=== PATIENT | female | born 1935 | race Caucasian/White ===

== ENCOUNTER 2016-06-04 02:43 | Observation (INO) ==
--- NOTE | 2016-06-04 02:54 | Emergency Department Note ---
Disposition Clinical Impression: Chest pain Qualifiers: Chest pain type: unspecified Qualified Code(s): R07.9 - Chest pain, unspecified Dyspnea Qualifiers: Dyspnea type: orthopnea Qualified Code(s): R06.01 - Orthopnea Disposition: Admitted As Inpatient Condition: Fair Referrals: Unassigned,Provider [Non-Partnered Physician] - Forms: ED Satisfaction Letter Time of Disposition: 04:35 Chest Pain HPI - General Chief Complaint: ED Chest Pain Stated Complaint: chest pain Time Seen by Provider: 06/04/16 02:47 Source: patient Mode of arrival: EMS Limitations: no limitations Vital Signs Reviewed: Yes Nursing Notes Reviewed: Yes - History of Present Illness HPI Narrative: Patient is a 80-year-old female who presents to [facility] ED with a chief complaint of shortness of breath and chest pain. States her shortness of breath has been present over the last week. She felt it come on especially when she lays down flat. Decided to go into a rocking chair and sleep but then felt sudden sharp right sided chest pain that radiated into her right arm. Denies any nausea, vomiting, fever or chills. No abdominal pain. No problems with urination or bowel movements. Past medical history significant for CHF on Lasix 40 mg twice a day, thyroid disease, hypertension, hyperlipidemia, lower extremity edema, epilepsy. Patient does not feel any chest pain at this time. 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 Denies: nausea, vomiting, diaphoresis, fever, cough Treatments prior to arrival chest pain: none - Related Data Previous Rx's Medication Instructions Recorded Azithromycin [Zithromax] 250 mg PO DAILY #6 tablet 07/07/15 Allergies Allergy/AdvReac Type Severity Reaction Status Date / Time codeine Allergy Anaphylaxis Verified 07/07/15 16:34 morphine Allergy Anaphylaxis Verified 07/07/15 16:34 IV contrast Allergy Anaphylaxis Uncoded 07/07/15 16:34 All systems ED: reviewed and negative except as stated. Chest Pain PMH - Past Medical History Medical history: Reports: CHF, hypertension, other Psychiatric history: Reports: no psych history - Social History Smoking Status: Never smoker Alcohol use: Reports: none Drug use: Reports: none Physical Exam - General Limitations: no limitations General appearance: alert, in no apparent distress - Head Head exam: atraumatic, normocephalic, normal inspection - Eye Eye exam: Present: normal appearance, PERRL, EOMI - ENT ENT exam: normal exam, normal oropharynx, mucous membranes moist - Neck Neck exam: Present: normal inspection, full ROM, trachea midline - Chest Chest inspection: Present: normal inspection, symmetric chest wall rise, tenderness (Right-sided reproducible pain worse with palpation) - Respiratory Respiratory exam: Present: normal lung sounds bilaterally - Cardiovascular Cardiovascular exam: Present: regular rate, normal rhythm, normal heart sounds - Abdominal Exam Abdominal exam: Present: soft, Non-Tender. Absent: tenderness, distention, guarding, rebound, rigidity - Extremities Exam Extremities exam: Present: full ROM, pedal edema. Absent: tenderness - Back Exam Back exam: Present: normal inspection, full ROM. Absent: tenderness - Neurological Exam Neurological exam: Present: alert, oriented X3 - Psychiatric Psychiatric exam: Present: normal affect, normal mood - Skin Skin exam: Present: warm, dry, intact, normal color Course Course Narrative: Patient seen and examined. Chest pain that is currently resolved. Also complaining of dyspnea over the last week. History of CHF. Cardiopulmonary workup initiated. She follows with division order technician Dr. Mendosa. Recent echocardiogram in 2015 showed an EF of 65%. - Reevaluation(s) Reevaluation #1: Lab work shows a troponin of 0.00, BNP 79. Chest x-ray unremarkable. EKG unchanged from prior in 2015. Since patient has not had a recent cardiac workup , we will go ahead and admit for chest pain, rule out ACS. I spoke with hospitalist Dr. Hightower who has accepted patient for admission. Time: 04:32 Vital Signs Temperature 0 F L 06/04/16 02:48 Pulse Rate 68 06/04/16 02:48 Respiratory Rate 16 06/04/16 02:48 Blood Pressure 176/88 06/04/16 02:48 O2 Sat by Pulse Oximetry 99 06/04/16 02:48 Temperature 0 F L 06/04/16 02:48 Pulse Rate 59 06/04/16 03:30 Respiratory Rate 16 06/04/16 03:30 Blood Pressure 176/88 06/04/16 02:48 O2 Sat by Pulse Oximetry 98 06/04/16 03:30 Oxygen Delivery Oxygen Delivery Nasal Cannula Chest Pain - Medical Records Medical records reviewed: Yes I reviewed the patient's medical records. - Lab Data Lab results reviewed: Yes I reviewed the patient's lab results. Result diagrams: 06/04/16 02:52 06/04/16 02:52 Lab Results 06/04/16 06/04/16 06/04/16 Range/Units 02:52 02:52 02:52 WBC 12.1 H (4.3-11.1) K/mcL RBC 4.91 (3.82-4.97) M/mcL Hgb 14.5 (11.5-15.4) g/dL Hct 44.1 (35.3-44.9) % MCV 89.8 (83.0-100.0) fL MCH 29.5 (28.0-33.3) pg MCHC 32.9 (31.6-35.5) g/dL RDW 12.6 (11.5-14.5) % Plt Count 315 (140-400) K/mcL MPV 9.9 (9.4-12.4) fL Immature Gran % 0.8 (0-4) % Seg Neutrophils % 60.5 % Lymphocytes % 28.3 % Monocytes % 9.1 % Eosinophils % 0.8 % Basophils % 0.5 % Neutrophils # 7.3 (1.6-8.9) K/mcL Lymphocytes # 3.4 (0.6-4.6) K/mcL Monocytes # 1.1 (0.0-1.3) K/mcL Eosinophils # 0.1 (0.0-0.6) K/mcL Basophils # 0.1 (0.0-0.2) K/mcL Sodium 142 (136-145) mEq/L Potassium 3.9 (3.5-4.5) mEq/L Chloride 105 (98-109) mEq/L Carbon Dioxide 26 (19-29) mEq/L BUN 27 H (7-20) mg/dL Creatinine 1.13 H (0.57-1.11) mg/dL Est GFR ( Amer) 56 L (> 60) Est GFR (Non-Af Amer) 47 L (> 60) BUN/Creatinine Ratio 24 (6-26) Glucose 141 H (70-99) mg/dL Calculated Osmolality 301 H (280-300) Calcium 8.7 (8.6-10.8) mg/dL Troponin I (0-0.03) ng/mL B-Natriuretic Peptide 79 (0-100) pg/mL 06/04/16 Range/Units 02:52 WBC (4.3-11.1) K/mcL RBC (3.82-4.97) M/mcL Hgb (11.5-15.4) g/dL Hct (35.3-44.9) % MCV (83.0-100.0) fL MCH (28.0-33.3) pg MCHC (31.6-35.5) g/dL RDW (11.5-14.5) % Plt Count (140-400) K/mcL MPV (9.4-12.4) fL Immature Gran % (0-4) % Seg Neutrophils % % Lymphocytes % % Monocytes % % Eosinophils % % Basophils % % Neutrophils # (1.6-8.9) K/mcL Lymphocytes # (0.6-4.6) K/mcL Monocytes # (0.0-1.3) K/mcL Eosinophils # (0.0-0.6) K/mcL Basophils # (0.0-0.2) K/mcL Sodium (136-145) mEq/L Potassium (3.5-4.5) mEq/L Chloride (98-109) mEq/L Carbon Dioxide (19-29) mEq/L BUN (7-20) mg/dL Creatinine (0.57-1.11) mg/dL Est GFR ( Amer) (> 60) Est GFR (Non-Af Amer) (> 60) BUN/Creatinine Ratio (6-26) Glucose (70-99) mg/dL Calculated Osmolality (280-300) Calcium (8.6-10.8) mg/dL Troponin I 0.00 (0-0.03) ng/mL B-Natriuretic Peptide (0-100) pg/mL - Radiology Data Radiology results reviewed: Yes I reviewed the patient's radiology results. Chest X-Ray 06/04/16 02:47 IMPRESSION: No significant findings in the chest. D/ / Da Rose MD / Da Rose MD Interpreting Provider: Da Rose MD - EKG Data EKG attestation: Yes I reviewed and interpreted this EKG. EKG results narrative: EKG done at 251 shows normal sinus rhythm with a rate of [address] elevation or depression. Prominent Q-wave in lead 3. Normal axis. Findings unchanged from prior EKG done 07/02/2014 Heart Score - Score History: Slightly Suspicious EKG: Normal Age: Greater than 65 Risk Factors: 1-2 risk factors Troponin: Less than normal limit HEART Score Total: 3 Attestation Statement - Attestation Attestation: I examined this patient and my medical decision-making was reviewed with the MANAGER DEVELOPMENTAL/PA/Advanced Practice Nurse/Resident Physician. I agree with the documented findings, disposition and treatment plan as described except to the extent set forth below. Patient presents to the emergency department with shortness of breath. Onset 3 days ago. States she tried to go to bed tonight but she was short of breath when she laid down. She then experienced some chest pain in the right side of her chest going down her right arm. She states she is old and she thought she should get it checked out. She has a history of congestive heart failure.
[2016-06-04 03:00] LABS: Basophils # 0.1 K/mcL (0.0-0.2); Basophils % 0.5 %; Eosinophils # 0.1 K/mcL (0.0-0.6); Eosinophils % 0.8 %; Hematocrit 44.1 % (35.3-44.9); Hemoglobin 14.5 g/dL (11.5-15.4); Immature Granulocytes % 0.8 % (0-4); Lymphocytes # 3.4 K/mcL (0.6-4.6); Lymphocytes % 28.3 %; Mean Corpuscular HGB Conc 32.9 g/dL (31.6-35.5); Mean Corpuscular Hemoglobin 29.5 pg (28.0-33.3); Mean Corpuscular Volume 89.8 fL (83.0-100.0); Mean Platelet Volume 9.9 fL (9.4-12.4); Monocytes # 1.1 K/mcL (0.0-1.3); Monocytes % 9.1 %; Neutrophils # 7.3 K/mcL (1.6-8.9); Platelet Count 315 K/mcL (140-400); Red Blood Count 4.91 M/mcL (3.82-4.97); Red Cell Distribution Width 12.6 % (11.5-14.5); Segmented Neutrophils % 60.5 %
[2016-06-04 03:12] LABS: Calcium 8.7 mg/dL (8.6-10.8); Potassium 3.9 mEq/L (3.5-4.5)
[2016-06-04] MEDS ORDERED: Aspirin 81 MG TAB.CHEW PO STA (04:32)
[2016-06-04] MEDS ORDERED: Acetaminophen 325 MG TABLET PO PRN (05:44)
[2016-06-04] MEDS ORDERED: Naloxone 0.4 MG/ML INJ IVP PRN (05:44)
[2016-06-04] MEDS ORDERED: Ondansetron ODT 4 MG TAB.RAPDIS SL PRN (05:44)
[2016-06-04] MEDS ORDERED: Furosemide 40 MG/4 ML VIAL IVP ONE (05:46)
--- NOTE | 2016-06-04 05:59 | Internal Med History&Physical ---
<Radha Antunez - Last Filed: 06/04/16 06:13> Date of Encounter: 06/04/16 Time of Encounter: 05:51 Assessment and Plan (1) Chest pain Current visit: Yes Status: Acute Patient presents with chest pain. History suggestive of noncardiac chest pain. Chest wall tender to palpation. Patient follows with Dr. Mendosa. Echocardiogram was done approximately 6 months ago however it was a technically poor study and no EF was reported. Patient was also scheduled for a stress test however was unable to complete due to elevated blood pressure. Will continue with cardiac workup - trend troponins, echocardiogram, nuclear stress test. Will hold on cardiology consultation at this time. 1. Cardiac monitoring 2. Trend troponins 3. ECHO 4. Stress test - NPO, hold metoprolol 5. Continue statin and aspirin Qualifiers: Chest pain type: unspecified Qualified Code(s): R07.9 - Chest pain, unspecified (2) CHF (congestive heart failure) Current visit: Yes Status: Acute Patient has history of CHF. Patient reports worsening shortness of breath and orthopnea over the last week. On exam, patient has diffuse respiratory crackles and bilateral pitting edema. No JVD noted. Believe CHF is acutely worsening despite increasingly success. Will give patient IV Lasix dose now. Echocardiogram and stress test ordered. 1. 40mg IV lasix now 2. Fluid restriction 3. ECHO 4. Stress test 5. Continuous oxygen monitor and supplemental O2 as needed. Qualifiers: Congestive heart failure type: unspecified congestive heart failure type Congestive heart failure chronicity: acute on chronic Qualified Code(s): I50.9 - Heart failure, unspecified (3) Epilepsy Current visit: Yes Status: Acute History of epilepsy. Will continue home medications. Qualifiers: Epilepsy type: unspecified Intractability: not intractable Status epilepticus: without status epilepticus Qualified Code(s): G40.909 - Epilepsy , unspecified, not intractable, without status epilepticus (4) HTN (hypertension) Current visit: Yes Status: Acute Patient with history of HTN. Blood pressure appropriate on admission. Patient was unable to have outpatient stress test due to elevated blood pressures. Will hold metoprolol for test. Monitor blood pressures and treat if needed. Qualifiers: Hypertension type: essential hypertension Qualified Code(s): I10 - Essential (primary) hypertension (5) Hypothyroid Current visit: Yes Status: Acute History of hypothyroid. Continue home dose of levothyroxine. Qualifiers: Hypothyroidism type: acquired Qualified Code(s): E03.9 - Hypothyroidism, unspecified (6) DVT prophylaxis Current visit: Yes Status: Acute Heparin for DVT prophylaxis. Internal Medicine - H&P: HPI Chief complaint: Chest pain Admitted From: Emergency Dept History of present illness: Ms. Yo is a 80 year old female with PMH of CHF on lasix, hypothyroid, HTN, HLD, LE edema and epilepsy who presents to the ED with chest pain. Patient reports that she was sitting at home in a chair trying to sleep when she had a sharp, sudden pain that started in her right chest and shot down her right arm. This pain last a matter of seconds. The pain occurred a total of 3 times before arriving in the hospital. While seeing the patient she reported a similar pain in her left chest that again lasted a matter of seconds. Patient also reports worsening shortness of breath over the last week. She states that she has CHF and often gets short of breath when walking, however it has been getting worse to the point that she became lightheaded while walking. She reports that she has been taking extra lasix pills for the past 10 days because of worsening LE edema. She is currently taking 40mg BID. She also reports worsening orthopnea. She is not usually able to sleep flat however tonight she was unable to sleep in her bed and had to sleep sitting up in a chair. Patient reports associated headache. She denies vision changes, continuous chest pressure, nausea or vomiting, abdominal pain, changes in bowel or bladder. Patient states that her legs are always swollen right now they are better than they were a couple weeks ago. In the ED, patient's heart rate, respiratory rate, blood pressure within normal limits. She is currently on to supplemental oxygen not due to decreased oxygenation sets foot [place] shortness of breath. She reports she feels better with the oxygen. Labs revealed a slight leukocytosis of 12.1. Creatinine 1.13 which may be patient's baseline. GFR 47. PNP 79. Troponin 0.00. EKG showed normal sinus rhythm with her rate of 64 bpm, no ST segment elevation of depression and no changes from previous EKG in 2015. Chest x-ray showed some fluid overload. On exam, patient was awake alert and oriented, comprising properly. Heart was regular rate and rhythm. Lungs had diffuse crackles. Abdomen distended but soft. BL legs with 2+ to 3+ pitting edema. Past Med Surg Social Fam HX - Past Medical History Medical history: CHF, hypertension, thyroid disease, other Psychiatric history: no psych history - Past Surgical History Surgical History: appendectomy, hysterectomy - Social History Smoking Status: Never smoker Smokeless Tobacco Status: No Alcohol use: none Drug use: none - Family History Mother Living Status: Hx Family Cancer: Yes (ovarian) Hx Family Endocrine Disorder: Yes (diabetes) Father Living Status: Cause of : Cancer Hx Family Cancer: Yes Sister Living Status: Cause of : CHF, obesity Hx Family Cardiac Disorders: Yes (CHF) Hx Family Endocrine Disorder: Yes (diabetes) Internal Medicine - H&P: Meds Aspirin [Lo-Dose Aspirin EC] 81 mg PO DAILY 06/04/16 [History] Atorvastatin [Lipitor] 10 mg PO HS 06/04/16 [History] CarBAMazepine [Tegretol] 200 mg PO QID 06/04/16 [History] DiphenhydraMINE [Benadryl] 25 mg PO HS 06/04/16 [History] Furosemide [Lasix] 40 mg PO BID 06/04/16 [History] Levothyroxine [Synthroid] 25 mcg PO 0630 06/04/16 [History] Lisinopril [Zestril] 10 mg PO DAILY 06/04/16 [History] PHENobarbital [Phenobarbital] 20 mg PO TID 06/04/16 [History] Propranolol [Inderal] 40 mg PO BID 06/04/16 [History] Allergies codeine Allergy (Verified 07/07/15 16:34) Anaphylaxis morphine Allergy (Verified 07/07/15 16:34) Anaphylaxis IV contrast Allergy (Uncoded 07/07/15 16:34) Anaphylaxis All Systems PM: A 10-system review of systems was performed and is negative for pertinent findings except as documented above in the HPI. - Constitutional Constitutional: no chills, no fatigue, no fever(s) - EENT Eyes: no blurry vision, no change in vision Nose, mouth and throat: sinus pressure, no nasal congestion, no nasal discharge , no sore throat - Cardiovascular Cardiovascular ROS IM: chest pain, dyspnea, dyspnea on exertion, edema, orthopnea, no claudication, no diaphoresis, no irregular heart rhythm, no lightheadedness, no palpitations - Respiratory Respiratory: dyspnea, dyspnea on exertion, no cough, no hemoptysis, no wheezing , no snoring, no pain on inspiration, no chest congestion, no excessive phlegm production - Gastrointestinal Gastrointestinal: no abdominal pain, no constipation, no diarrhea, no nausea, no vomiting - Genitourinary Genitourinary: no difficulty urinating, no dysuria - Neurological Neurological ROS: dizziness, headache(s), no numbness, no weakness - Constitutional Vitals: Temp Pulse Resp BP Pulse Ox 97.7 F 61 14 123/82 97 06/04/16 05:45 06/04/16 05:45 06/04/16 05:45 06/04/16 05:45 06/04/16 05:45 General appearance: Present: A&O X 3, pleasant, no acute distress, answers questions appropriately - Head Head exam: Present: atraumatic, normal inspection, normocephalic - Eye Eye exam: Present: EOMI, normal appearance, PERRL - ENT ENT exam: Present: mucous membranes moist - Respiratory Respiratory exam: Present: chest wall tenderness, rales. Absent: rhonchi, wheezes, tachypnea - Cardiovascular Cardiovascular exam: Present: RRR - GI/Abdominal GI/Abdominal exam: Present: distended, soft. Absent: tenderness - Extremities Exam Extremities exam: Present: pedal edema - Neurological Exam Neurological exam: Present: alert, CN II-XII intact, oriented X3, no focal deficits Internal Med - H&P Results - Labs CBC & Chem 7: 06/04/16 02:52 06/04/16 02:52 - EKG Data -: EKG Interpreted by Myself EKG shows normal: sinus rhythm Rate: normal - EKG Data Prior EKG available for review: yes When compared to previous EKG: there is no significant change Interpretation IM: normal EKG - Impressions ITS Impressions Chest X-Ray 06/04/16 02:47 IMPRESSION: No significant findings in the chest. D/ / Da Rose MD / Da Rose MD Interpreting Provider: Da Rose MD <[email or web address] R - Last Filed: 06/04/16 08:49> Internal Medicine - H&P: HPI History of present illness: Ms. Yo is a 80 year old female All Systems PM: A 10-system review of systems was performed and is negative for pertinent findings except as documented above in the HPI. - Constitutional Vitals: Temp Pulse Resp BP Pulse Ox 97.7 F 61 14 123/82 97 06/04/16 05:45 06/04/16 05:45 06/04/16 05:45 06/04/16 05:45 06/04/16 05:45 Internal Med - H&P Results - Labs CBC & Chem 7: 06/04/16 02:52 06/04/16 02:52 - Attending Attestation I performed a history and physical examination of the patient and discussed his management with the Resident/Blasting Coal Miner (Dr Antunez). I reviewed the residents note and agree with the documented findings and plan of care, with additions as below. 80 year old female with PMH of CHF on lasix, hypothyroid, HTN, HLD presented to the ER with chest pain. Was planned to have stress test in the past, but was hypertensive and could not have it. H/o orthopnea. EKG is non acute. CXR is negative. O/E: cardiac: RRR. Lungs: Bibasal crackles. Leg edema present A/P: chest pain: Trend troponins. Stress test. IV Lasix for volume overload.
[2016-06-04] MEDS: Levothyroxine 25 MCG TABLET PO SCH (06:11)
[2016-06-04] MEDS: carBAMazepine 200 MG TABLET PO SCH ×4 (10:02→21:45)
[2016-06-04] MEDS ORDERED: Regadenoson 0.4 MG/5 ML SYRINGE IVP ONE (13:09)
--- NOTE | 2016-06-04 15:28 | Nuclear Medicine Stress Report ---
Regadenoson Nuclear Stress Name: Mili Yo Date of Study: 06/04/2016 Date: 1935 Ht: 60.0 in Medical Record#: [id number] Age: 80 Wt: 190.0 lb Gender: Female Order #: [id number] Location: [facility] Room: [facility] Supervising Provider: Fili Mendosa DO, FACC, FASE, Reading Physician: Fili Mendosa DO, FACC, FASE, FASNC Ordering Physician: Neva Galan CNP Primary Care Physician: Rosalino Murphy MD Stress Technologist: Kathleen Cleaning, CATTLE FARMER, CCT, CPFT Heel Shaver: Kana Smith Indications: Chest Pain Impression: Pharmacologic stress ECG is negative for ischemia at level of heart rate achieved. Gated EF = 72%. Small sized, mild intensity, partially reversible basal to mid inferolateral defect. Tomographic images suggest this defect is due to soft tissue artifact. Perfusion imaging was negative for infarct or definitive ischemia. History: Hypertension Hypercholesteremia Stress Test Summary: Stress Test Type: Pharmacologic Regadenoson 0.4mg/5ml given IV Baseline Information: Initial Heart Rate: 52 Blood Pressure: 146/84 Stress Information: Stress Time: 4 min sec Test Terminated Due to (primary): As per protocol Maximum Blood Pressure: 146/90 Maximum Heart Rate: 75 Percent Maximum Heart Rate Achieved: 53 Double Product: [id number] METS Reached: 1 Symptoms: Nausea Nuclear Summary: SPECT myocardial perfusion imaging using Tc99m Sestamibi given intravenously was performed at rest and following cardiac stress testing. The resting images were obtained following initial dose of 11.9 mCi. Following stress an additional dose of 32.8 mCi was given at peak exercise or 30 seconds post regadenoson infusion. Medication Given: Time Medication Dose Units Route Findings: Stress Note * Resting ECG demonstrated normal sinus rhythm. * No baseline arrhythmias were noted. * Pharmacologic stress ECG is negative for ischemia at level of heart rate achieved. * No arrhythmias were noted during stress. * Patient had no chest pain during stress. * Normal hemodynamic responses to pharmacologic stress. Study Quality * Study quality is average. Gated EF % * Gated EF = 72%. Left Ventricle * The left ventricle is not dilated. LVEDV = 47 mL. * Normal wall motion. Inferior Perfusion Rest * The basal inferolateral segment shows a mild reduction in perfusion. Inferior Perfusion Stress * The basal to mid inferolateral segments show a mild reduction in perfusion. TID * No evidence of transient ischemic dilatation. TID ratio = 1.11. Lung Uptake * There is no evidence of increase lung uptake. Updated by Fili Mendosa DO, FACNoel, ZARINA, QUENTIN on 06/04/2016 3:20:38 PM electronically signed on 06/04/2016 3:22:11 PM with status of Final
--- NOTE | 2016-06-04 15:34 | ECHO - Doppler Report ---
Echocardiogram Name: Mili Yo Date of Study: 06/04/2016 Date: 1935 Ht: 61.0 in Medical Record#: [id number] Age: 80 Wt: 190.0 lb Gender: Female BSA: 1.85 Order #: [id number] Location: [facility] Room #: Reading Physician: Fili Mendosa DO, JUSTINA, QUENTIN SRINIVASAN Straight Edger: Leslie Kearns RDCS Ordering Physician: Neva Galan CNP Primary Physician: Rosalino Murphy MD Indications: Shortness of breath, Chest pain Impressions: LVEF 65%. Normal LV chamber size and function. Mild left ventricular diastolic dysfunction. Asymmetric hypertrophy of the basal septum. Turbulence noted, but no LVOT obstruction by Doppler. Normal right ventricular structure and function. Mild pulmonary hypertension. No significant valvular dysfunction. Left Ventricular Wall Motion: Rest Echo Findings All wall segments showed normal motion. Findings: Study Quality * Technically adequate exam. ECG Findings * Normal sinus rhythm. Left Ventricle * LVEF 65%. * Normal LV chamber size and function. * Mild left ventricular diastolic dysfunction. * Asymmetric hypertrophy of the basal septum. Turbulence noted, but no LVOT obstruction. Right Ventricle * Normal right ventricular structure and function. Left Atrium * Mildly dilated left atrium. Right Atrium * Normal right atrial size. Interatrial Septum * No evidence of PFO by color Doppler. Aortic Valve * Aortic valve not well visualized. * No aortic stenosis. * No aortic regurgitation. Mitral Valve * Normal mitral valve structure and function. * No mitral stenosis. * Trace mitral regurgitation. Tricuspid Valve * Normal tricuspid valve structure and function. * Trace tricuspid regurgitation. * Mild pulmonary hypertension. Pulmonic Valve * Pulmonic valve is not well visualized. * No pulmonic regurgitation. Aorta * Normally sized aortic root. Pericardium * The pericardium appears normal. IVC * Normal IVC dimensions and inspiratory collapse. Pulmonary Artery * Normal visualized portions of the main pulmonary artery. History Hypertension Hypercholesteremia Family History of CAD 02-23-16 a Previous Echo was performed. Measurements: BP: 123/ 82 2D Normal Values RVIDd: 3.20 cm <2.7 cm IVSd: 1.60 cm 0.6 - 1.0 cm LVIDd: 4.00 cm 3.7 - 5.6 cm LVPWd: 1.30 cm 0.6 - 1.1 cm LVIDs: 2.20 cm 1.5 - 3.6 cm AO: 2.70 cm < 4.0 cm LA: 3.50 cm 2.0 - 4.0cm %FS: 45.00 cm >25 % LVOT Diam: 1.90 cm LA volume: 49 Mitral Valve Peak E:.52 m/sec Peak A:.79 m/sec E/A Ratio:0.7 Peak E' Lat Haris:6.43 cm/s Peak E' Med Haris:5.26 cm/s E/E' Lat Ratio:8.1 E/E' Med Ratio:9.9 Tricuspid Valve TV Regurg Peak Grad: 34.00mmHg TV Regurg Peak Haris: 2.92m/sec Updated by Fili Mendosa DO, JUSTINA, ZARINA, QUENTIN on 06/04/2016 3:27:40 PM electronically signed on 06/04/2016 3:28:17 PM with status of Final Wall Motion Neri: 1=Normal, 2=Hypokinesis, 3=Akinesis, 4=Dyskinesis, 5=Aneurysmal, 6=Hyperkinetic, X=Not Visualized (Blank)=Missing
[2016-06-04] MEDS: *HR* Heparin 5,000 UNIT/ML VIAL SQ SCH ×2 (15:44→21:47)
--- NOTE | 2016-06-04 17:45 | Internal Med Progress Note ---
Date of Encounter: 06/04/16 Time of Encounter: 10:00 - Assessment and plan (1) Chest pain Current Visit: Yes Status: Acute Assessment and plan: Nonspecific chest pain, 2 troponin negative, stress test and negative, echocardiogram and his chest x-ray unremarkable. Patient is pain-free now. Continue closely monitoring and symptoms management Qualifiers: Chest pain type: unspecified Qualified Code(s): R07.9 - Chest pain, unspecified (2) CHF (congestive heart failure) Current Visit: Yes Status: Acute Assessment and plan: No signs of exacerbation. Echocardiogram done, results are remarkable. BNP 79. Chest x-ray is clear. However, patient has pedal edema, 40mg Lasix have been giving on admission. We will closely follow up Qualifiers: Congestive heart failure type: unspecified congestive heart failure type Congestive heart failure chronicity: acute on chronic Qualified Code(s): I50.9 - Heart failure, unspecified (3) DVT prophylaxis Current Visit: Yes Status: Acute Assessment and plan: Heparin subcutaneously (4) Epilepsy Current Visit: Yes Status: Acute Assessment and plan: Continue home medications Qualifiers: Epilepsy type: unspecified Intractability: not intractable Status epilepticus: without status epilepticus Qualified Code(s): G40.909 - Epilepsy , unspecified, not intractable, without status epilepticus (5) HTN (hypertension) Current Visit: Yes Status: Acute Assessment and plan: Continue home medication Qualifiers: Hypertension type: essential hypertension Qualified Code(s): I10 - Essential (primary) hypertension (6) Hypothyroid Current Visit: Yes Status: Acute Assessment and plan: Continue home medications Qualifiers: Hypothyroidism type: acquired Qualified Code(s): E03.9 - Hypothyroidism, unspecified - Time Spent With Patient 25 - 35 minutes - Subjective Interval history: Patient is a 80-year-old female admitted for chest pain. Her past medical history is significant for CHF, hypertension, thyroid disease, epilepsy. Patient was seen and examined. She is awake alert, oriented 3. In no acute distress. Denies chest pain or shortness of breath. Vitals are stable. Had a stress test done, negative. Patient has bilateral pedal edema, she was given 1 dose of Lasix today. We will continue follow-up, plan to discharge tomorrow a.m. - Constitutional Vitals: Temp Pulse Resp BP Pulse Ox 97.5 F L 57 16 123/68 97 06/04/16 15:33 06/04/16 15:33 06/04/16 15:33 06/04/16 15:33 06/04/16 15:33 General appearance: Present: A&O X 3, pleasant, no acute distress, answers questions appropriately - Head Head exam: Present: atraumatic, normocephalic - Eye Eye exam: Present: PERRL, conjuntiva pink, sclera anicteric Pupils: Present: PERRL - Neck Neck exam general surgery: Present: supple, trachea midline. Absent: lymphadenopathy - Respiratory Respiratory exam: Present: CTAB. Absent: accessory muscle use, rales, rhonchi, wheezes - Cardiovascular Cardiovascular exam: Present: RRR, +S1, +S2. Absent: diastolic murmur, gallop, rubs, systolic murmur - GI/Abdominal GI/Abdominal exam: Present: normal bowel sounds, soft, no peritoneal signs. Absent: distended, tenderness - Extremities Exam Extremities exam: Present: pedal edema, warm, radial pulses palpable and symetrical. Absent: calf tenderness, cyanotic - Neurological Exam Neurological exam: Present: CN II-XII intact, oriented X3, no focal deficits. Absent: pronater drift, facial droop, speech deficit - Skin Skin exam: Present: dry, intact Internal Medicine: Result - Labs CBC & Chem 7: 06/04/16 02:52 06/04/16 02:52 Labs: Cardiac Enzymes 06/04/16 Range/Units 08:58 Troponin I 0.01 (0-0.03) ng/mL Consult Discharge Plan - Plan Referrals: Rosalino Murphy MD [Primary Care Provider] -
[2016-06-05 05:03] LABS: Basophils # 0.1 K/mcL (0.0-0.2); Basophils % 0.7 %; Eosinophils # 0.1 K/mcL (0.0-0.6); Eosinophils % 1.4 %; Hematocrit 40.9 % (35.3-44.9); Hemoglobin 12.9 g/dL (11.5-15.4); Immature Granulocytes % 0.9 % (0-4); Lymphocytes # 2.9 K/mcL (0.6-4.6); Lymphocytes % 32.3 %; Mean Corpuscular HGB Conc 31.5 g/dL (31.6-35.5); Mean Corpuscular Hemoglobin 28.8 pg (28.0-33.3); Mean Corpuscular Volume 91.3 fL (83.0-100.0); Mean Platelet Volume 10.3 fL (9.4-12.4); Monocytes # 0.8 K/mcL (0.0-1.3); Monocytes % 9.2 %; Neutrophils # 4.9 K/mcL (1.6-8.9); Platelet Count 273 K/mcL (140-400); Red Blood Count 4.48 M/mcL (3.82-4.97); Red Cell Distribution Width 12.7 % (11.5-14.5); Segmented Neutrophils % 55.5 %
[2016-06-05 05:16] LABS: BUN/Creatinine Ratio 26 (6-26); Blood Urea Nitrogen 26 mg/dL (7-20); Calcium 7.8 mg/dL (8.6-10.8); Carbon Dioxide 25 mEq/L (19-29); Chloride 105 mEq/L (98-109); Glucose 160 mg/dL (70-99); Osmolality,Calculated 298 (280-300); Potassium 3.9 mEq/L (3.5-4.5); Sodium 140 mEq/L (136-145); eGFR For African Americans > 60 (> 60); eGFR For Non-African Americans 54 (> 60)
[2016-06-05] MEDS: Levothyroxine 25 MCG TABLET PO SCH (06:35)
[2016-06-05] MEDS: *HR* Heparin 5,000 UNIT/ML VIAL SQ SCH (06:36)
[2016-06-05] MEDS: carBAMazepine 200 MG TABLET PO SCH (08:58)
[2016-06-05] MEDS ORDERED: Aspirin Enteric Coated 81 MG Tablet PO SCH (09:00)
[2016-06-05] MEDS ORDERED: Furosemide 40 MG/4 ML VIAL IVP SCH (09:00)
--- NOTE | 2016-06-05 10:32 | Discharge Summary ---
Date of Encounter: 06/05/16 Time of Encounter: 09:00 - Discharge Diagnosis (1) Chest pain Priority: Primary Status: Acute Qualifiers: Chest pain type: unspecified Qualified Code(s): R07.9 - Chest pain, unspecified (2) CHF (congestive heart failure) Priority: Secondary Status: Acute Qualifiers: Congestive heart failure type: unspecified congestive heart failure type Congestive heart failure chronicity: acute on chronic Qualified Code(s): I50.9 - Heart failure, unspecified (3) DVT prophylaxis Priority: Secondary Status: Acute (4) Epilepsy Priority: Secondary Status: Acute Qualifiers: Epilepsy type: unspecified Intractability: not intractable Status epilepticus: without status epilepticus Qualified Code(s): G40.909 - Epilepsy , unspecified, not intractable, without status epilepticus (5) HTN (hypertension) Priority: Secondary Status: Acute Qualifiers: Hypertension type: essential hypertension Qualified Code(s): I10 - Essential (primary) hypertension (6) Hypothyroid Priority: Secondary Status: Acute Qualifiers: Hypothyroidism type: acquired Qualified Code(s): E03.9 - Hypothyroidism, unspecified - Discharge Medications Home Medications: Aspirin [Lo-Dose Aspirin EC] 81 mg PO DAILY 06/04/16 [History] Atorvastatin [Lipitor] 20 mg PO HS 06/04/16 [History] CarBAMazepine [Tegretol] 200 mg PO QID 06/04/16 [History] Furosemide [Lasix] 40 mg PO AD 06/04/16 [History] Levothyroxine [Synthroid] 25 mcg PO DAILY 06/04/16 [History] Lisinopril [Zestril] 10 mg PO DAILY 06/04/16 [History] PHENobarbital [Phenobarbital] 20 mg PO TID 06/04/16 [History] Potassium Chloride [K-Tab ER] 20 meq PO DAILY 06/04/16 [History] Propranolol HCl 60 mg PO BID 06/04/16 [History] Atorvastatin [Lipitor] 10 mg PO HS tablet 06/05/16 [Rx] Allergies/Adverse Reactions: Allergies codeine Allergy (Verified 07/07/15 16:34) Anaphylaxis diphenhydramine [From Benadryl] Allergy (Verified 06/04/16 09:28) Hives morphine Allergy (Verified 07/07/15 16:34) Anaphylaxis perfume Allergy (Verified 06/04/16 09:28) Rash IV contrast Allergy (Uncoded 07/07/15 16:34) Anaphylaxis Procedures/tests Complete & Pending: Procedures Performed prior 72 hours Category Date Time Status NM claire perf SPECT multi [NM] Routine Exams 06/04/16 05:47 Taken EV echocardiogram Routine Y 06/04/16 05:46 Completed SP pharm nuclear stress Routine Y 06/04/16 05:46 Completed Date of admission: 06/04/16 04:35 Primary care physician: Rosalino Murphy MD Discharging clinician: Bishnu Leahy Anticipated date of discharge: 06/05/16 - Patient Status Disposition: Home, Self-Care Condition: Good Overall status at discharge: patient is back to baseline - Discharge Instructions Follow Up With: Rosalino Murphy MD [Primary Care Provider] - - Diet and Activity Activity: increase activity as tolerated Diet: low fat, low cholesterol, low salt diet Interval History: Ms. Yo is a 80 year old female with PMH of CHF on lasix, hypothyroid, HTN, HLD, LE edema and epilepsy who presents to the ED with chest pain. Patient reports that she was sitting at home in a chair trying to sleep when she had a sharp, sudden pain that started in her right chest and shot down her right arm. This pain last a matter of seconds. The pain occurred a total of 3 times before arriving in the hospital. While seeing the patient she reported a similar pain in her left chest that again lasted a matter of seconds. Patient also reports worsening shortness of breath over the last week. She states that she has CHF and often gets short of breath when walking, however it has been getting worse to the point that she became lightheaded while walking. She reports that she has been taking extra lasix pills for the past 10 days because of worsening LE edema. She is currently taking 40mg BID. She also reports worsening orthopnea. She is not usually able to sleep flat however tonight she was unable to sleep in her bed and had to sleep sitting up in a chair. Patient reports associated headache. She denies vision changes, continuous chest pressure, nausea or vomiting, abdominal pain, changes in bowel or bladder. Patient states that her legs are always swollen right now they are better than they were a couple weeks ago. In the ED, patient's heart rate, respiratory rate, blood pressure within normal limits. She is currently on to supplemental oxygen not due to decreased oxygenation sets foot [place] shortness of breath. She reports she feels better with the oxygen. Labs revealed a slight leukocytosis of 12.1. Creatinine 1.13 which may be patient's baseline. GFR 47. PNP 79. Troponin 0.00. EKG showed normal sinus rhythm with her rate of 64 bpm, no ST segment elevation of depression and no changes from previous EKG in 2015. Chest x-ray showed some fluid overload. On exam, patient was awake alert and oriented, comprising properly. Heart was regular rate and rhythm. Lungs had diffuse crackles. Abdomen distended but soft. BL legs with 2+ to 3+ pitting edema. Hospital course: Ms. Yo is a 80 year old female admitted for chest pain. Patient was placed on continuous cardiac monitoring, 3 sets of troponin was trended, which are results negative. Patient has stress test, negative to ischemia. Chest x-ray unremarkable. Patient has mild pedal edema, which she told me is chronic. Patient had no further chest pain. We will discharge patient home and continue home medication, patient will follow up with PCP in 10 days. I saw and examined the patient today. She is awake alert, oriented 3. Denies chest pain or shortness of breath. Vitals are stable, lungs are clear. Oxygen saturation 95% in room air. Patient is stable to discharge home. She has an appointment with PCP on 06/16. - Time Spent with Patient Total time spent providing and/or coordinating discharge services: 40 minutes Greater than 30 minutes - Constitutional Vitals: Temp Pulse Resp BP Pulse Ox 97.8 F 75 14 115/69 95 06/05/16 07:18 06/05/16 07:18 06/05/16 07:18 06/05/16 07:18 06/05/16 08:00 General appearance: Present: A&O X 3, pleasant, no acute distress, answers questions appropriately - Head Head exam: Present: atraumatic, normocephalic - Eye Eye exam: Present: PERRL, conjuntiva pink, sclera anicteric Pupils: Present: PERRL - Neck Neck exam general surgery: Present: supple, trachea midline. Absent: lymphadenopathy - Respiratory Respiratory exam: Present: CTAB. Absent: accessory muscle use, rales, rhonchi, wheezes - Cardiovascular Cardiovascular exam: Present: RRR, +S1, +S2. Absent: diastolic murmur, gallop, rubs, systolic murmur - GI/Abdominal GI/Abdominal exam: Present: normal bowel sounds, soft, no peritoneal signs. Absent: distended, tenderness - Extremities Exam Extremities exam: Present: pedal edema (Mild pedal edema bilaterally), warm, radial pulses palpable and symetrical. Absent: calf tenderness, cyanotic - Neurological Exam Neurological exam: Present: CN II-XII intact, oriented X3, no focal deficits. Absent: pronater drift, facial droop, speech deficit - Skin Skin exam: Present: dry, intact
[2016-06-05 11:31] VITALS: BP 125/71
--- NOTE | 2016-06-06 15:15 | Electrocardiograph Report ---
[address] [place] [address] Test Date: 2016-06-04 Pat Name: Mili Yo Department: 103 Room: 3B55 Gender: F Sales Inspector: : [id number] Requested By: Nancy Youssef Order Number: [id number] Reading MD: Mart Merida Measurements Intervals [place] Rate: 64 P: 78 DC: 269 QRS: 13 QRSD: 92 T: 38 QT: 420 QTc: 429 Interpretive Statements SINUS RHYTHM WITH FIRST DEGREE AV BLOCK PROBABLE INFERIOR MYOCARDIAL INFARCTION, PROBABLY OLD SEVERE ARTIFACT Electronically Signed On 06-06-2016 15:13:13 EDT by Mart eMrida
== END 2016-06-05 14:25 | disposition home or self-care (01) ==
LOC: EMEROO 02:43 → 3BNU 02:43 → SUATTDRO 04:35 → 3BNU 05:17
PROVIDERS: ADMIT Internal Medicine; ATTEND Internal Medicine

== ENCOUNTER 2017-11-02 03:08 | Inpatient (IN) ==
[2017-11-02 03:44] LABS: Basophils # 0.1 K/mcL (0.0-0.2); Basophils % 0.8 %; Eosinophils # 0.2 K/mcL (0.0-0.6); Eosinophils % 2.2 %; Hematocrit 42.1 % (35.3-44.9); Hemoglobin 13.8 g/dL (11.5-15.4); Immature Granulocytes % 0.8 % (0-4); Lymphocytes # 2.9 K/mcL (0.6-4.6); Lymphocytes % 37.9 %; Mean Corpuscular HGB Conc 32.8 g/dL (31.6-35.5); Mean Corpuscular Hemoglobin 29.6 pg (28.0-33.3); Mean Corpuscular Volume 90.3 fL (83.0-100.0); Mean Platelet Volume 10.4 fL (9.4-12.4); Monocytes # 0.8 K/mcL (0.0-1.3); Monocytes % 10.3 %; Neutrophils # 3.7 K/mcL (1.6-8.9); Platelet Count 238 K/mcL (140-400); Red Blood Count 4.66 M/mcL (3.82-4.97); Red Cell Distribution Width 12.7 % (11.5-14.5)
[2017-11-02 03:57] LABS: Bilirubin,Urine Negative (Negative); Blood,Urine Negative (Negative); Clarity,Urine Cloudy (Clear); Color,Urine Yellow (Yellow); Glucose,Urine (UA) Normal (Normal); Ketones,Urine Negative (Negative); Leukocyte Esterase,Urine Negative (Negative); Nitrite,Urine Negative (Negative); Protein,Urine Trace mg/dL (Neg-Trace); Specific Gravity,Urine 1.013 (1.010-1.025); Urobilinogen,Urine Normal (Normal)
[2017-11-02 04:00] LABS: Bacteria,Urine None Seen per hpf (None-Few); Hyaline Casts,Urine None Seen per lpf (None-Few); RBC,Urine 0-3 per hpf (0-3); Squamous Epithelial Cell,Urine Many per lpf (None-Few); WBC,Urine 0-3 per hpf (0-3)
--- NOTE | 2017-11-02 04:03 | Emergency Department Note ---
Disposition Clinical Impression: Hyperkalemia, MARISELA (acute kidney injury) Disposition: Admitted As Inpatient Condition: Good General Adult HPI - General Chief complaint: ED Chest Pain Stated complaint: Arm pain Chest pain Time Seen by Provider: 11/02/17 03:09 Source: patient, EMS Mode of arrival: EMS Limitations: no limitations Nursing Notes Reviewed: Yes Vital Signs Reviewed: Yes - History of Present Illness HPI Narrative: 82-year-old female with a past medical history of hypertension, hyperlipidemia, CHF, temporal lobe epilepsy presents emergency department for evaluation of right arm numbness and tingling. Patient states she was asleep in her rocking chair and she woke up in the lower half of her right arm from her elbow to her fingertips was numb and when she moved it she had pain and tingling for several minutes before returning to normal, pt states feelings only from RAC to finger tips, accompanied by a "cold" feeling to same locations. Pt concerned regarding past CVA and recent increase of SOB so she called EMS for transfer to facility On her way to the emergency department she stated that she had a brief moment of chest pain that subsided by the time she came to the facility. Patient does complain of shortness of breath for about a week with increased edema, she is on 3 "water pills" a day. She complains of increased ROSAS with ambulation around her house. Patient denies confusion, weakness, difficulty with speaking, facial drooping, coughing, wheezing, abdominal pain, nausea, vomiting, diarrhea, constipation. Onset (ago): Just [employer] Pain Scale: 0 Treatments Prior to Arrival: none - Related Data Home Medications Medication Instructions Recorded Confirmed Acetaminophen [Tylenol] 650 mg PO Q6HR PRN 11/02/17 11/02/17 Aspirin [Lo-Dose Aspirin EC] 81 mg PO DAILY 11/02/17 11/02/17 Atorvastatin [Lipitor] 40 mg PO HS 11/02/17 11/02/17 Calcifediol [Rayaldee] 30 mcg PO HS 11/02/17 11/02/17 Furosemide [Lasix] 40 mg PO BID 11/02/17 11/02/17 Levothyroxine [Synthroid] 25 mcg PO 0630 11/02/17 11/02/17 Lisinopril [Zestril] 20 mg PO DAILY 11/02/17 11/02/17 Loperamide HCl [Anti-Diarrheal] 2 mg PO QID PRN MDD MAX 8 TABS/24 11/02/1711/02 HOURS [place]-3 Fatty Acids [Fish Oil] 1,200 mg PO DAILY 11/02/17 11/02/17 PHENobarbital [Phenobarbital] 40 mg PO BID 11/02/17 11/02/17 Potassium Chloride [K-Tab ER] 20 meq PO DAILY 11/02/17 11/02/17 Propranolol HCl 60 mg PO BID 11/02/17 11/02/17 carBAMazepine [Tegretol] 200 mg PO QID 11/02/17 11/02/17 Allergies Allergy/AdvReac Type Severity Reaction Status Date / Time codeine Allergy Anaphylaxis Verified 11/02/17 08:25 diphenhydramine Allergy Hives Verified 11/02/17 08:25 [From Benadryl] morphine Allergy Anaphylaxis Verified 11/02/17 08:25 perfume Allergy Rash Verified 11/02/17 08:25 IV contrast Allergy Anaphylaxis Uncoded 11/02/17 08:25 All systems ED: reviewed and negative except as stated. Review of Systems: As Per [facility] Past Medical History - Past Medical History Attestation: Yes The following information was validated with the patient. Source: patient Medical history: Reports: CHF, hypertension, thyroid disease, other Surgical history: Reports: appendectomy, hysterectomy Psychiatric history: Reports: no psych history - Social History Smoking Status: Never smoker Smokeless Tobacco Status: No Alcohol use: Reports: none Drug use: Reports: none Physical Exam - General Limitations: no limitations General appearance: alert, in no apparent distress - Head Head exam: atraumatic, normocephalic, normal inspection - Eye Eye exam: Present: normal appearance, PERRL, EOMI. Absent: scleral icterus, conjunctival injection - ENT ENT exam: mucous membranes moist - Neck Neck exam: Present: normal inspection, full ROM, trachea midline - Chest Chest inspection: Present: normal inspection, symmetric chest wall rise - Respiratory Respiratory exam: Present: normal lung sounds bilaterally - Cardiovascular Cardiovascular exam: Present: regular rate, normal rhythm, normal heart sounds - Abdominal Exam Abdominal exam: Present: soft, Non-Tender, normal bowel sounds - Extremities Exam Extremities exam: Present: full ROM, normal capillary refill, pedal edema (3+) - Back Exam Back exam: Present: normal inspection, full ROM. Absent: tenderness - Neurological Exam Neurological exam: Present: alert, oriented X3, CN II-XII intact - Expanded Neurological Exam Patient oriented to: Present: person, place, time Speech: Present: fluid speech Cranial nerves: EOM function (II, III, IV, ): Normal, facial sensation (V): Normal, facial palsy (VII): Normal, gag reflex (IX): Normal, spinal accessory function (XI): Normal, tongue deviation (XII): Normal Cerebellar function: finger to nose: Normal, heel to ocasio: Normal Cerebellar function: normal gait Motor strength - LUE: 5/5 Motor strength - RUE: 5/5 Motor strength - LLE: 5/5 Motor strength - RLE: 5/5 Upper motor neuron exam: dennise neglect: Absent bilaterally, pronator drift: Absent bilaterally Sensory exam upper extremity: light touch: Normal, temperature: Normal, 2 point discrimination: Normal Sensory exam lower extremity: light touch: Normal, temperature: Normal, 2 point discrimination: Normal Spinal cord function: Absent: saddle anesthesia Coma Scale Eye Opening: Spontaneous Coma Scale Motor Response: Obeys Commands Coma Scale Verbal Response: Oriented Coma Scale Total: 15 - Psychiatric Psychiatric exam: Present: normal affect, normal mood - Skin Skin exam: Present: warm, dry, intact, normal color Course Course Narrative: Pleasant, nontoxic-appearing female in no apparent distress. Patient is alert and oriented 3, neurologically intact, GCS 15, CN II-XII intact, full range of motion and full strength to all extremities. She recalls short and long-term memory with ease. She speaks in full sentences without any distress. Vital signs upon arrival stable, afebrile, non-hypoxic, non-tachycardic. EKG with sinus rhythm with sinus arrhythmia first-degree block, 61 beats minute, CT interval 3 and 54 ms, QTC 46 ms. lungs clear, abdomen soft, 3+ pitting edema bilateral lower extremities. Recent Echo 10/30/17 with LVEF 60% Will obtain labs, chest x-ray and reevaluate. Case discussed with Dr. Low Montelongo who is agreeable to POC - Reevaluation(s) Reevaluation #1: Patient resting comfortably in no acute distress. Chest x-ray returns negative per radiology, CBC benign, troponin negative, BNP 120, metabolic panel shows hyperkalemia of 5.9, creatinine 1.98, GFR 24, BUN 60, this is significantly elevated from patient's baseline. UA is benign. Patient with acute kidney injury and hyperkalemia, the patient will need to be admitted to the hospitalist for care management of hyperkalemia and acute kidney injury. Patient is agreeable to plan of care. Patient hyperkalemia asymptomatic. Hospitalist paged at this time for admission. Time: 05:30 Reevaluation #2: Spoke with hospitalist with acceptance for further management. Time: 06:15 Vital Signs Temperature 98.3 F 11/02/17 03:12 Pulse Rate 61 11/02/17 03:12 Respiratory Rate 16 11/02/17 03:12 Blood Pressure 134/73 11/02/17 03:12 O2 Sat by Pulse Oximetry 98 11/02/17 03:12 Temperature 98.4 F 11/02/17 19:27 Pulse Rate 71 11/02/17 19:27 Respiratory Rate 14 11/02/17 19:27 Blood Pressure 104/65 11/02/17 19:27 O2 Sat by Pulse Oximetry 97 11/02/17 19:27 Oxygen Delivery Oxygen Delivery Room Air Medical Decision Making - Medical Records Medical records reviewed: Yes I reviewed the patient's medical records. - Lab Data Lab results reviewed: Yes I reviewed the patient's lab results. Result diagrams: 11/02/17 03:34 11/02/17 16:14 Lab Results 11/02/17 11/02/17 11/02/17 Range/Units 03:34 03:34 03:34 WBC 7.7 (4.3-11.1) K/mcL RBC 4.66 (3.82-4.97) M/mcL Hgb 13.8 (11.5-15.4) g/dL Hct 42.1 (35.3-44.9) % MCV 90.3 (83.0-100.0) fL MCH 29.6 (28.0-33.3) pg MCHC 32.8 (31.6-35.5) g/dL RDW 12.7 (11.5-14.5) % Plt Count 238 (140-400) K/mcL MPV 10.4 (9.4-12.4) fL Immature Gran % 0.8 (0-4) % Seg Neutrophils % 48.0 % Lymphocytes % 37.9 % Monocytes % 10.3 % Eosinophils % 2.2 % Basophils % 0.8 % Neutrophils # 3.7 (1.6-8.9) K/mcL Lymphocytes # 2.9 (0.6-4.6) K/mcL Monocytes # 0.8 (0.0-1.3) K/mcL Eosinophils # 0.2 (0.0-0.6) K/mcL Basophils # 0.1 (0.0-0.2) K/mcL Sodium 137 (136-145) mEq/L Potassium 5.9 H (3.5-5.1) mEq/L Chloride 105 (98-107) mEq/L Carbon Dioxide 25 (23-29) mEq/L BUN 60 H (8-23) mg/dL Creatinine 1.98 H (0.60-1.20) mg/dL Est GFR ( Amer) 29 L (> 60) Est GFR (Non-Af Amer) 24 L (> 60) BUN/Creatinine Ratio 30 H (6-26) Glucose 181 H (70-105) mg/dL Calculated Osmolality 305 H (280-300) Calcium 9.1 (8.6-10.3) mg/dL Troponin I < 0.03 (< 0.04) ng/mL B-Natriuretic Peptide 120 H (Less than 100) pg/mL Urine Color (Yellow) Urine Clarity (Clear) Urine pH (5.0-8.0) pH Units Ur Specific [place] (1.010-1.025) Urine Protein (Neg-Trace) mg/dL Urine Glucose (UA) (Normal) mg/dL Urine Ketones (Negative) mg/dL Urine Blood (Negative) Urine Nitrite (Negative) Urine Bilirubin (Negative) Urine Urobilinogen (Normal) mg/dL Ur Leukocyte Esterase (Negative) Urine Microscopic RBC (0-3) per hpf Urine Microscopic WBC (0-3) per hpf Ur Squamous Epith Cells (None-Few) per lpf Urine Bacteria (None-Few) per hpf Hyaline Casts (None-Few) per lpf Ur Culture Indicated? (NO) 11/02/17 Range/Units 03:46 WBC (4.3-11.1) K/mcL RBC (3.82-4.97) M/mcL Hgb (11.5-15.4) g/dL Hct (35.3-44.9) % MCV (83.0-100.0) fL MCH (28.0-33.3) pg MCHC (31.6-35.5) g/dL RDW (11.5-14.5) % Plt Count (140-400) K/mcL MPV (9.4-12.4) fL Immature Gran % (0-4) % Seg Neutrophils % % Lymphocytes % % Monocytes % % Eosinophils % % Basophils % % Neutrophils # (1.6-8.9) K/mcL Lymphocytes # (0.6-4.6) K/mcL Monocytes # (0.0-1.3) K/mcL Eosinophils # (0.0-0.6) K/mcL Basophils # (0.0-0.2) K/mcL Sodium (136-145) mEq/L Potassium (3.5-5.1) mEq/L Chloride (98-107) mEq/L Carbon Dioxide (23-29) mEq/L BUN (8-23) mg/dL Creatinine (0.60-1.20) mg/dL Est GFR ( Amer) (> 60) Est GFR (Non-Af Amer) (> 60) BUN/Creatinine Ratio (6-26) Glucose (70-105) mg/dL Calculated Osmolality (280-300) Calcium (8.6-10.3) mg/dL Troponin I (< 0.04) ng/mL B-Natriuretic Peptide (Less than 100) pg/mL Urine Color Yellow (Yellow) Urine Clarity Cloudy A (Clear) Urine pH 6.0 (5.0-8.0) pH Units Ur Specific [place] 1.013 (1.010-1.025) Urine Protein Trace (Neg-Trace) mg/dL Urine Glucose (UA) Normal (Normal) mg/dL Urine Ketones Negative (Negative) mg/dL Urine Blood Negative (Negative) Urine Nitrite Negative (Negative) Urine Bilirubin Negative (Negative) Urine Urobilinogen Normal (Normal) mg/dL Ur Leukocyte Esterase Negative (Negative) Urine Microscopic RBC 0-3 (0-3) per hpf Urine Microscopic WBC 0-3 (0-3) per hpf Ur Squamous Epith Cells Many H (None-Few) per lpf Urine Bacteria None Seen (None-Few) per hpf Hyaline Casts None Seen (None-Few) per lpf Ur Culture Indicated? NO (NO) - Radiology Data Radiology results reviewed: Yes I reviewed the patient's radiology results. - EKG Data EKG #1 EKG attestation: Yes I reviewed and interpreted this EKG.
[2017-11-02 04:11] LABS: BUN/Creatinine Ratio 30 (6-26); Blood Urea Nitrogen 60 mg/dL (8-23); Calcium 9.1 mg/dL (8.6-10.3); Carbon Dioxide 25 mEq/L (23-29); Chloride 105 mEq/L (98-107); Glucose 181 mg/dL (70-105); Osmolality,Calculated 305 (280-300); Potassium 5.9 mEq/L (3.5-5.1); Sodium 137 mEq/L (136-145); Troponin I < 0.03 ng/mL (< 0.04); eGFR For Non-African Americans 24 (> 60)
[2017-11-02] MEDS ORDERED: 0.9 % Sodium Chloride 500 ML IVC ONE (05:29)
[2017-11-02] MEDS ORDERED: Acetaminophen 325 MG TABLET PO PRN (09:29)
[2017-11-02] MEDS ORDERED: Lisinopril 20 MG TABLET PO SCH (09:30)
--- NOTE | 2017-11-02 09:53 | Internal Med History&Physical ---
<Radha Yang M - Last Filed: 11/02/17 15:07> Date of Encounter: 11/02/17 Time of Encounter: 09:50 Internal Medicine - H&P: HPI Chief complaint: right arm numbness Admitted From: Home History of present illness: Ms. Yo is a 82 year old female with a PMH of HTN, HLD, CHF and Temporal lobe epilepsy who presented to [facility] 11/02~with numbness and tingling of the right upper extremity. In Patient was awoken by aching pain in right upper arm at 2:30 am last night, she describes this as pain in the right shoulder and upper extremity associated with right lower arm numbness and paresthesia's. She tried to move arm around with no relief, no aggravating factors. Rated the pain a 10/10, episode lasted 30 minutes and then resolved - at which time she came to hospital. Sensation of numbness and tingling have resolved today. Says lower right arm still feels cold. Patient recently had Lasix dose adjusted by PCP to 40 mg PO TID around 4-6 weeks ago, and was put back on BID 2 weeks ago. Her dose of potassium supplement increased to daily instead of 4 days/week, and that dose has not been changed back with decrease in Lasix. In Ed, chest X-ray wnl, UA non-diagnostic and labs K 5.9, creatinine 1.98, BUN/ creatinine ratio is 30. Positive for headache at the time of shoulder pain, resolved. Positive for feverish, chills, resolved. Positive for SOB with walker ambulation at home from room to room, not SOB with speech, no home oxygen. Positive for diarrhea, said she was on recent course of antibiotics and diarrhea began afterward, resolving. Positive for leg swelling- at her baseline. 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 Denies sweats, vision changes, flashers, floaters, hearing changes, chest pain, palpitations, difficulty breathing, cough, wheeze, nausea, vomiting, constipation, melena, dysuria, urinary urgency, hematuria, Past Med Surg Social Fam HX - Past Medical History Medical history: CHF, hypertension, thyroid disease, other Additional medical history: epilepsy Psychiatric history: no psych history - Past Surgical History Surgical History: appendectomy, hysterectomy Additional surgical history: shoulder, ankle - Social History Smoking Status: Never smoker Smokeless Tobacco Status: No Alcohol use: none Drug use: none - Family History Mother Living Status: Hx Family Cancer: Yes (ovarian) Hx Family Endocrine Disorder: Yes (diabetes) Father Living Status: Hx Family Cancer: Yes Sister Living Status: Hx Family Cardiac Disorders: Yes (CHF) Hx Family Endocrine Disorder: Yes (diabetes) Internal Medicine - H&P: Meds Acetaminophen [Tylenol] 650 mg PO Q6HR PRN 11/02/17 [History] Aspirin [Lo-Dose Aspirin EC] 81 mg PO DAILY 11/02/17 [History] Atorvastatin [Lipitor] 40 mg PO HS 11/02/17 [History] Calcifediol [Rayaldee] 30 mcg PO HS 11/02/17 [History] Furosemide [Lasix] 40 mg PO BID 11/02/17 [History] Levothyroxine [Synthroid] 25 mcg PO 0630 11/02/17 [History] Lisinopril [Zestril] 20 mg PO DAILY 11/02/17 [History] Loperamide HCl [Anti-Diarrheal] 2 mg PO QID PRN MDD MAX 8 TABS/24 HOURS [History] [place]-3 Fatty Acids [Fish Oil] 1,200 mg PO DAILY 11/02/17 [History] PHENobarbital [Phenobarbital] 40 mg PO BID 11/02/17 [History] Potassium Chloride [K-Tab ER] 20 meq PO DAILY 11/02/17 [History] Propranolol HCl 60 mg PO BID 11/02/17 [History] carBAMazepine [Tegretol] 200 mg PO QID 11/02/17 [History] 3 Allergy/AdvReac Type Severity Reaction Status Date / Time codeine Allergy Anaphylaxis Verified 11/02/17 08:25 diphenhydramine Allergy Hives Verified 11/02/17 08:25 [From Benadryl] morphine Allergy Anaphylaxis Verified 11/02/17 08:25 perfume Allergy Rash Verified 11/02/17 08:25 IV contrast Allergy Anaphylaxis Uncoded 11/02/17 08:25 All Systems PM: A 10-system review of systems was performed and is negative for pertinent findings except as documented above in the HPI. - Constitutional Constitutional: as per HPI - Cardiovascular Cardiovascular ROS IM: as per HPI - Respiratory Respiratory: as per HPI - Gastrointestinal Gastrointestinal: as per HPI - Genitourinary Genitourinary: as per HPI - Neurological Neurological ROS: as per HPI - Constitutional Vitals: Temp Pulse Resp BP Pulse Ox 97.9 F 86 16 131/63 99 11/02/17 07:22 11/02/17 07:22 11/02/17 07:22 11/02/17 07:22 11/02/17 07:22 General appearance: Present: mild distress, A&O X 3 - Head Head exam: Present: atraumatic, normocephalic - Eye Eye exam: Present: EOMI, PERRL, sclera anicteric. Absent: periorbital tenderness Pupils: Present: PERRL Additional comments: visual mota intact - Neck Neck exam general surgery: Present: supple, trachea midline. Absent: lymphadenopathy - Respiratory Respiratory exam: Present: CTAB. Absent: accessory muscle use, rales, rhonchi, wheezes - Cardiovascular Cardiovascular exam: Present: irregular rhythm, +S1, +S2. Absent: diastolic murmur, gallop, rubs, systolic murmur - GI/Abdominal GI/Abdominal exam: Present: normal bowel sounds, soft, no peritoneal signs. Absent: distended, tenderness - Extremities Exam Extremities exam: Present: pedal edema, warm, radial pulses palpable and symmetrical. Absent: calf tenderness, cyanotic Additional comments: 2+ pitting edema up to at knee bilat, DP and popliteal pulses diminished. Radial pulse intact BL - Neurological Exam Neurological exam: Present: CN II-XII intact, oriented X3, no focal deficits. Absent: pronater drift, facial droop, speech deficit Additional comments: Strength UE (slasher runner, bi's, tri's, delts) 5/5, LE (flexors, extensors, plantar, dorsi, hallux) 5/5, sensation intact in UE and LE bilaterally, reflexes (bi's, tri's, patellar) 2/4 bilaterally, finger to nose intact, heel to ocasio intact - Skin Skin exam: Present: excoriation (left lower extremity), intact Additional comments: mild lower extremity venous stasis dermatitis changes - erythematous Internal Med - H&P Results - Labs CBC & Chem 7: 11/02/17 03:34 08/09/18 03:34 - Assessment and plan (1) TIA (transient ischemic attack) Current Visit: Yes Status: Suspected Assessment and plan: Suspect due to transient symptoms per patient of tingling, paresthesia's and pain in RUE - Patient had remote ischemic changes on past MRI, presented with focal symptoms which have resolved fully - Stat Head CT, carotid duplex U/S, MR head and neuro checks Q6 - ASA 81mg (2) Hyperkalemia Current Visit: Yes Status: Acute Assessment and plan: Hyperkalemic emergency secondary to ECG changes of arrhythmia (prior EKG from did not show sinus arrhythmia, did show first degree block) -Patient given 15mg dose of Kayexlate -Follow up with BMP at 4pm and repeat EKG to look for resolution of arrhythmia. If not resolved start patient on IV calcium gluconate 1-2 amps, 10 U regular insulin IV + 1-2 amps D50W, Beta 2 agonist 10-20 mg inhaled or .5 mg IV. (3) MARISELA (acute kidney injury) Current Visit: Yes Status: Acute Assessment and plan: Baseline Cr is 1, most recent Cr: 1.98. BUN/Cr ratio 30 indicates likely pre- renal cause, recent increased diuresis points to decreased renal perfusion due to volume depletion as likely cause. Retroperitoneal U/S showed changes consistent with CKD and baseline GFR was 45- 55, more recently down to 39 and 24 today along with elevated Cr. -gentle hydration with Administer 1L bag at 75 mL/hr. -Order FE Urea for evaluation, hold nephrotoxic meds including lisinopril and statin, monitor urine output. (4) Epilepsy Current Visit: No Status: Chronic Assessment and plan: Continue home phenobarbital and Tegratol at scheduled time Qualifiers: Epilepsy type: unspecified Intractability: not intractable Status epilepticus: without status epilepticus Qualified Code(s): G40.909 - Epilepsy , unspecified, not intractable, without status epilepticus (5) Diastolic CHF Current Visit: Yes Status: Chronic Assessment and plan: At her new baseline - Hold diuretics until resolution of MARISELA -Strict I's and O's, daily weights, sodium restriction. Encourage sodium restriction at home as well. Qualifiers: Heart failure chronicity: chronic Qualified Code(s): I50.32 - Chronic diastolic (congestive) heart failure (6) HTN (hypertension) Current Visit: No Status: Chronic Assessment and plan: Hold home Lisinopril until resolution of MARISELA, continue metoprolol Qualifiers: Hypertension type: essential hypertension Qualified Code(s): I10 - Essential (primary) hypertension (7) HLD (hyperlipidemia) Current Visit: No Status: Chronic Assessment and plan: Hold atorvastatin Qualifiers: Hyperlipidemia type: mixed hyperlipidemia Qualified Code(s): E78.2 - Mixed hyperlipidemia - Time Spent With Patient Total time spent is greater than 50% in coordination of care (as documented) at patient's floor/unit and/or counseling patient: Greater than 35 minutes <Nagi Nobles - Last Filed: 11/02/17 18:23> Date of Encounter: 11/02/17 Internal Medicine - H&P: HPI History of present illness: Ms. Yo is a 82 year old female All Systems PM: A 10-system review of systems was performed and is negative for pertinent findings except as documented above in the HPI. - Constitutional Vitals: Temp Pulse Resp BP Pulse Ox 97.8 F 56 14 97/61 96 11/02/17 11:43 11/02/17 11:43 11/02/17 11:43 11/02/17 11:43 11/02/17 11:43 Internal Med - H&P Results - Labs CBC & Chem 7: 11/02/17 03:34 11/02/17 16:14 Labs: BMP 11/02/17 16:14 Sodium 137 Potassium 6.4 H Chloride 109 H Carbon Dioxide 20 L BUN 55 H Creatinine 1.65 H Glucose 174 H Calcium 8.8 Liver Function 11/02/17 Range/Units 16:14 Total Bilirubin 0.2 L (0.3-1.0) mg/dL AST 17 (13-39) Units/L ALT 16 (7-52) Units/L Alkaline Phosphatase 114 H (34-104) Units/L Albumin 3.9 (3.5-5.7) g/dL - Impressions ITS Impressions Head CT 11/02/17 11:10 IMPRESSION: No evidence of acute intracranial abnormality. If clinical symptomatology warrants, follow-up MRI examination with diffusion imaging may be helpful for more complete evaluation. D/ / 11/02/2017 12:58:41 Jeremy Mello MD / nicol Interpreting Provider: Jeremy Mello MD Brain MRI 11/02/17 11:16 IMPRESSION: 1. No acute intracranial abnormality. Specifically, no acute infarction. 2. Parenchymal volume loss and sequela of chronic microvascular ischemic changes. D/ / 11/02/2017 15:11:44 Mitzi Horta MD / fredy Interpreting Provider: Mitzi Horta MD - Attending Attestation I examined this patient and my medical decision-making was reviewed with the Resident Physician Dr. Yang. I agree with the documented findings, disposition and treatment plan as described except to the extent set forth below. MMs. Yo is a 82 year old female with a PMH of HTN, HLD, CHF and Temporal lobe epilepsy who presented to [facility] 11/02~with numbness and tingling of the right upper extremity. She denied any more weakness, however she still feels some coldness / parasthesia in her Rt UE. Denied any CP. Gen: A, A, O x 3 Chest: Diminished BS b/l Heart: S1S2+ RRR No murmurs Ext: Edema + pulses + neuro : no focal deficit 1. Rt arm weakness - Possible TIA need to r/o CVA check CT of head, MRI of brain Carotid Doppler 2. Chronic diastolic CHF not in exacerbation - Time Spent With Patient Total time spent is greater than 50% in coordination of care (as documented) at patient's floor/unit and/or counseling patient:
[2017-11-02] MEDS ORDERED: Naloxone 0.4 MG/ML INJ IVP PRN (10:43)
[2017-11-02] MEDS: carBAMazepine 200 MG TABLET PO SCH ×4 (10:59→21:16)
[2017-11-02] MEDS ORDERED: 0.9 % Sodium Chloride 1,000 ML IVC SCH (13:00)
--- NOTE | 2017-11-02 16:23 | Electrocardiograph Report ---
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
[2017-11-02 16:39] LABS: Albumin 3.9 g/dL (3.5-5.7); Albumin/Globulin Ratio 1.3 (1.1-2.2); Bilirubin,Total 0.2 mg/dL (0.3-1.0); Calcium 8.8 mg/dL (8.6-10.3); Globulin 2.9 g/dL (2.4-3.5); Potassium 6.4 mEq/L (3.5-5.1); Total Protein 6.8 g/dL (6.4-8.9)
[2017-11-02] MEDS: CALCIFEDIOL 30 MCG PO SCH (21:17)
[2017-11-03] MEDS: Levothyroxine 25 MCG TABLET PO SCH (06:12)
[2017-11-03 06:50] LABS: Basophils # 0.1 K/mcL (0.0-0.2); Basophils % 0.5 %; Eosinophils # 0.2 K/mcL (0.0-0.6); Hematocrit 37.3 % (35.3-44.9); Hemoglobin 12.3 g/dL (11.5-15.4); Immature Granulocytes % 0.8 % (0-4); Lymphocytes # 3.4 K/mcL (0.6-4.6); Lymphocytes % 36.6 %; Mean Corpuscular Hemoglobin 30.5 pg (28.0-33.3); Mean Corpuscular Volume 92.6 fL (83.0-100.0); Mean Platelet Volume 10.7 fL (9.4-12.4); Monocytes % 10.4 %; Neutrophils # 4.6 K/mcL (1.6-8.9); Platelet Count 204 K/mcL (140-400); Red Blood Count 4.03 M/mcL (3.82-4.97); Red Cell Distribution Width 12.8 % (11.5-14.5); Segmented Neutrophils % 49.7 %
[2017-11-03 07:05] LABS: Albumin 3.3 g/dL (3.5-5.7); Albumin/Globulin Ratio 1.3 (1.1-2.2); Bilirubin,Total 0.3 mg/dL (0.3-1.0); Globulin 2.6 g/dL (2.4-3.5); Magnesium 1.9 mg/dL (1.6-2.6); Potassium 6.2 mEq/L (3.5-5.1); Total Protein 5.9 g/dL (6.4-8.9)
[2017-11-03] MEDS: Aspirin Enteric Coated 81 MG Tablet PO SCH (09:24)
[2017-11-03] MEDS: carBAMazepine 200 MG TABLET PO SCH ×4 (09:24→21:43)
[2017-11-03 13:54] LABS: Calcium 8.8 mg/dL (8.6-10.3); Potassium 5.9 mEq/L (3.5-5.1)
[2017-11-03] MEDS: Loratadine 10 MG TABLET PO SCH (14:14)
--- NOTE | 2017-11-03 14:20 | Internal Med Progress Note ---
<Radha Yang - Last Filed: 11/03/17 14:18> Hospitalist Progress Note - Encounter Date of Encounter: 11/03/17 Time of Encounter: 14:18 - Subjective Interval History: Patient is an 82 y/o F with a PMH of HTN, HLD, CHF and Temporal lobe epilepsy who presented to [facility] yesterday with numbness and tingling of the right upper extremity.Today patient is doing well, still complains of cold right hand. Denies headaches, fevers, chills, SOB. Had 2 BM's yesterday, one this morning. Urinating appropriately as compared to baseline - Exam Vitals: Temp Pulse Resp BP Pulse Ox 98.1 F 68 16 115/58 93 11/03/17 10:53 11/03/17 10:53 11/03/17 10:53 11/03/17 10:53 11/03/17 10:53 Exam: GEN: well appearing obese female in no acute distress, A&Ox3, breathing room air SKIN: mild lower extremity venous stasis dermatitis changes - erythematous HEAD: atraumatic NECK: normal ROM, no lymphadenopathy HEART: RRR LUNGS: CTAB, no wheezes, rales ABD: BSx4, no organomegaly, non tender to palpation MSK: normal ROM in UE and LE VASC: BL LE 2+ pitting edema through legs and abdomen, DP and popliteal pulses diminished. Radial pulse intact BL NEURO: A&Ox3, CN X-XII intact, Strength UE (cherry cutter, bi's, tri's, delts) 5/5, LE ( flexors, extensors, plantar, dorsi, hallux) 5/5, sensation intact in UE and LE bilaterally, reflexes (bi's, tri's, patellar) 2/4 bilaterally, finger to nose intact, heel to ocasio intact - Assessment and Plan (1) TIA (transient ischemic attack) Current Visit: Yes Status: Suspected Assessment and Plan: Secondary to transient symptoms per patient of tingling, paresthesia's and pain in RUE - Resolved - Normal Head CT and MRI. Left carotid stenosis present on U/S of 60-79% and patient presented to hospital with symptoms: she meet criteria for intervention , but unsure of surgical candidacy - Neuro checks Q6 - I discussed carotid intervention with patient and she talked with family, she didn't want to consult IV cardiology (2) Hyperkalemia Current Visit: Yes Status: Acute Assessment and Plan: Possible Hyperkalemic emergency secondary to ECG changes of arrhythmia as compared to prior EKG from 06/10 which did not show sinus arrhythmia. Both show first degree block - Patient given 15mg dose of Kayexlate. Has had 3 total BM's. - Follow up BMPs have shown K 6.4, 6.2, and 5.9 at 1 pm - repeat EKG showed ### - Recheck BMP at 8 pm - Give second dose of Kayexlate if still not resolving. If not resolved start patient on IV calcium gluconate 1-2 amps, 10 U regular insulin IV + 1-2 amps D50W, Beta 2 agonist 10-20 mg inhaled or .5 mg IV. (3) MARISELA (acute kidney injury) Current Visit: Yes Status: Acute Assessment and Plan: Improving; Cr is 1.48 baseline Cr is 1, presented Cr: 1.98. - BUN/Cr ratio 30 indicates likely pre-renal cause, recent increased diuresis points to decreased renal perfusion due to volume depletion as likely cause. - Received 1L fluid back, BUN and Cr are trending down. Urine creatinine clearance studies ordered. - Per nurse and patient having good urine output. - Continue to hold her nephrotoxic home meds, monitor urine output (4) Diastolic CHF Current Visit: Yes Status: Chronic Assessment and Plan: Hold diuretics until resolution of MARISELA Strict I's and O's, daily weights, sodium restriction. Encourage sodium restriction at home as well. (5) HTN (hypertension) Current Visit: No Status: Chronic Assessment and Plan: Consulted cardiology regarding their recommendations that she hold her metropol untill seen as out patient - they don't need to see her as inpatients. - Hold home Lisinopril until resolution of MARISELA (6) HLD (hyperlipidemia) Current Visit: No Status: Chronic Assessment and Plan: Hold home atorvastatin until resolution of MARISELA (7) Epilepsy Current Visit: No Status: Chronic Assessment and Plan: Continue home phenobarbital and Tegratol DVT Prophylaxis: ambulation - Time Spent with Patient Total time spent is greater than 50% in coordination of care (as documented) at patient's floor/unit and/or counseling patient: Greater than 35 minutes Plan of Care Discussed with: family Internal Medicine: Result - Labs CBC & Chem 7: 11/03/17 06:09 11/03/17 13:24 Labs: Short CBC 11/03/17 Range/Units 06:09 WBC 9.3 (4.3-11.1) K/mcL Hgb 12.3 D (11.5-15.4) g/dL Hct 37.3 (35.3-44.9) % Plt Count 204 (140-400) K/mcL Neutrophils # 4.6 (1.6-8.9) K/mcL BMP 11/02/17 11/03/17 11/03/17 16:14 06:09 13:24 Sodium 137 138 139 Potassium 6.4 H 6.2 H 5.9 H Chloride 109 H 111 H 110 H Carbon Dioxide 20 L 19 L 23 BUN 55 H 46 H 46 H Creatinine 1.65 H 1.57 H 1.48 H Glucose 174 H 111 H 145 H Calcium 8.8 8.0 L 8.8 Liver Function 11/02/17 11/03/17 Range/Units 16:14 06:09 Total Bilirubin 0.2 L 0.3 (0.3-1.0) mg/dL AST 17 16 (13-39) Units/L ALT 16 14 (7-52) Units/L Alkaline Phosphatase 114 H 95 (34-104) Units/L Albumin 3.9 3.3 L (3.5-5.7) g/dL - Impressions Impressions Brain MRI 11/02/17 11:16 IMPRESSION: 1. No acute intracranial abnormality. Specifically, no acute infarction. 2. Parenchymal volume loss and sequela of chronic microvascular ischemic changes. D/ / 11/02/2017 15:11:44 Mitzi Horta MD / fredy Interpreting Provider: Mitzi Horta MD Consult Discharge Plan - Plan Referrals: Paresh Ceron MD [Primary Care Provider] - <Nagi Nobles - Last Filed: 11/03/17 17:59> Hospitalist Progress Note - Encounter Date of Encounter: 11/03/17 - Exam Vitals: Temp Pulse Resp BP Pulse Ox 97.9 F 77 15 122/91 94 11/03/17 15:09 11/03/17 15:09 11/03/17 15:09 11/03/17 15:09 11/03/17 15:09 - Time Spent with Patient Total time spent is greater than 50% in coordination of care (as documented) at patient's floor/unit and/or counseling patient: Internal Medicine: Result - Labs CBC & Chem 7: 11/03/17 06:09 11/03/17 13:24 Labs: Short CBC 11/03/17 Range/Units 06:09 WBC 9.3 (4.3-11.1) K/mcL Hgb 12.3 D (11.5-15.4) g/dL Hct 37.3 (35.3-44.9) % Plt Count 204 (140-400) K/mcL Neutrophils # 4.6 (1.6-8.9) K/mcL BMP 11/03/17 11/03/17 06:09 13:24 Sodium 138 139 Potassium 6.2 H 5.9 H Chloride 111 H 110 H Carbon Dioxide 19 L 23 BUN 46 H 46 H Creatinine 1.57 H 1.48 H Glucose 111 H 145 H Calcium 8.0 L 8.8 Liver Function 11/03/17 Range/Units 06:09 Total Bilirubin 0.3 (0.3-1.0) mg/dL AST 16 (13-39) Units/L ALT 14 (7-52) Units/L Alkaline Phosphatase 95 (34-104) Units/L Albumin 3.3 L (3.5-5.7) g/dL - Impressions Impressions Brain MRI 11/02/17 11:16 IMPRESSION: 1. No acute intracranial abnormality. Specifically, no acute infarction. 2. Parenchymal volume loss and sequela of chronic microvascular ischemic changes. D/ / 11/02/2017 15:11:44 Mitzi Horta MD / fredy Interpreting Provider: Mitzi Horta MD - Attending Attestation I examined this patient and my medical decision-making was reviewed with the Resident Physician Dr. Yang. I agree with the documented findings, disposition and treatment plan as described except to the extent set forth below. MMs. Yo is a 82 year old female with a PMH of HTN, HLD, CHF and Temporal lobe epilepsy who presented to [facility] 11/02~with numbness and tingling of the right upper extremity. She denied any more weakness, / parasthesia in her Rt UE. Denied any CP. Gen: A, A, O x 3 Chest: Diminished BS b/l Heart: S1S2+ RRR No murmurs Ext: Edema + pulses + neuro : no focal deficit 1. Rt arm weakness - Possible TIA ruld out CVA CT of head, MRI of brain - negative Carotid Doppler- Left cardotid moderate stenosis f/u with vascular surgeon as an out pt 2. MARISELA with CKD-3 3. Acute hyperkalemia - mostly due to dehdyration held lasix held ACEI on IV hydration Kayexalate given Reviewed EKG showed 1degree AV block Gave Calcium gluconate 4. Chronic diastolic CHF not in exacerbation <Radha Yang - Last Filed: 11/03/17 14:18> (4) Diastolic CHF Qualifiers: Heart failure chronicity: chronic Qualified Code(s): I50.32 - Chronic diastolic (congestive) heart failure (5) HTN (hypertension) Qualifiers: Hypertension type: essential hypertension Qualified Code(s): I10 - Essential (primary) hypertension (6) HLD (hyperlipidemia) Qualifiers: Hyperlipidemia type: mixed hyperlipidemia Qualified Code(s): E78.2 - Mixed hyperlipidemia (7) Epilepsy Qualifiers: Epilepsy type: unspecified Intractability: not intractable Status epilepticus: without status epilepticus Qualified Code(s): G40.909 - Epilepsy, unspecified, not intractable, without status epilepticus
[2017-11-03] MEDS ORDERED: 0.9 % Sodium Chloride 1,000 ML IVC SCH (17:30)
[2017-11-03 20:19] LABS: Calcium 8.7 mg/dL (8.6-10.3); Potassium 5.8 mEq/L (3.5-5.1)
[2017-11-03] MEDS: CALCIFEDIOL 30 MCG PO SCH (21:43)
[2017-11-04] MEDS: Levothyroxine 25 MCG TABLET PO SCH (05:45)
[2017-11-04 06:54] LABS: Calcium 8.6 mg/dL (8.6-10.3); Potassium 5.6 mEq/L (3.5-5.1)
[2017-11-04] MEDS: Aspirin Enteric Coated 81 MG Tablet PO SCH (09:20)
[2017-11-04] MEDS: Loratadine 10 MG TABLET PO SCH (09:20)
[2017-11-04] MEDS: carBAMazepine 200 MG TABLET PO SCH ×4 (09:20→21:46)
--- NOTE | 2017-11-04 12:09 | Internal Med Progress Note ---
<Radha Yang - Last Filed: 11/04/17 13:17> Hospitalist Progress Note - Encounter Date of Encounter: 11/04/17 Time of Encounter: 12:11 - Subjective Interval History: Patient is an 82 y/o F with a PMH of HTN, HLD, CHF and Temporal lobe epilepsy who presented with numbness and tingling of the right upper extremity. Today patient is doing well, still complains of cold right hand with achy pain. Denies headaches, fevers, chills, chest pain, palpationts and SOB. Had 2 BM's yesterday, one this morning. Urinating appropriately as compared to baseline - Exam Vitals: Temp Pulse Resp BP Pulse Ox 98.3 F 65 16 135/77 95 11/04/17 11:38 11/04/17 11:38 11/04/17 11:38 11/04/17 11:38 11/04/17 11:38 Exam: GEN: well appearing obese female in no acute distress, A&Ox3, breathing room air SKIN: mild lower extremity venous stasis dermatitis changes - erythematous HEAD: atraumatic NECK: normal ROM, no lymphadenopathy HEART: RRR LUNGS: CTAB, no wheezes, rales ABD: BSx4, no organomegaly, non tender to palpation MSK: normal ROM in UE and LE VASC: BL LE 2+ pitting edema through legs and abdomen, DP and popliteal pulses diminished. Radial pulse intact BL - Assessment and Plan (1) Hyperkalemia Current Visit: Yes Status: Acute Assessment and Plan: Possible Hyperkalemic emergency secondary to ECG changes of arrhythmia as compared to prior EKG from 06/10 which did not show sinus arrhythmia. Both show first degree block - Patient given second dose of Kayexlate early this morning after potassium remained elevated last night - After repeat EKG yesterday started IV calcium gluconate 1-2 amps, 10 U regular insulin IV + 1-2 amps D50W, Beta 2 agonist 10-20 mg inhaled or .5 mg IV. Serial BMPs show admission potassium of 6.9 slowly decrease to 5.6 this am and 5.3 - BMP tomorrow 4am - Per nursing notes her diet including outside beverages may be contributory (2) TIA (transient ischemic attack) Current Visit: Yes Status: Resolved Assessment and Plan: Secondary to transient symptoms per patient of tingling, paresthesia's and pain in RUE - Resolved - Normal Head CT and MRI. - Left carotid stenosis present on U/S of 60-79% While she was symptomatic and thus borderline on criteria for surgical intervention she may be poor surgical candidate. Patient declined referral to vascular surgery and would prefer to follow up outpatient if necessary. (3) MARISELA (acute kidney injury) Current Visit: Yes Status: Acute Assessment and Plan: Improving; Cr is 1.32 baseline Cr is 1, admitted with Cr: 1.98. - BUN/Cr ratio 30 indicates likely pre-renal cause, recent increased diuretic points to decreased renal perfusion due to volume depletion as likely cause. - Received 1L fluid yesterday - Per nurse and patient having good urine output. - Continue to hold her nephrotoxic home meds, monitor urine output (4) Diastolic CHF Current Visit: Yes Status: Chronic Assessment and Plan: Hold diuretics until resolution of MARISELA Strict I's and O's, daily weights, sodium restriction. Encourage sodium restriction at home as well. (5) HTN (hypertension) Current Visit: No Status: Chronic Assessment and Plan: Consulted cardiology yesterday regarding their recommendations that she hold her metoprolol until seen as out patient - they don't need to see her as inpatients. - stop metoprolol - don't restart on discharge - Hold home Lisinopril until resolution of MARISELA (6) HLD (hyperlipidemia) Current Visit: No Status: Chronic Assessment and Plan: Hold home atorvastatin until resolution of MARISELA (7) Epilepsy Current Visit: No Status: Chronic Assessment and Plan: Continue home phenobarbital and Tegratol DVT Prophylaxis: Ambulations - PT consulted - Time Spent with Patient Total time spent is greater than 50% in coordination of care (as documented) at patient's floor/unit and/or counseling patient: 25 - 35 minutes Plan of Care Discussed with: patient Internal Medicine: Result - Labs CBC & Chem 7: 11/03/17 06:09 11/04/17 12:04 Labs: BMP 11/03/17 11/04/17 19:40 06:18 Sodium 137 137 Potassium 5.8 H 5.6 H Chloride 110 H 111 H Carbon Dioxide 22 L 19 L BUN 43 H 35 H Creatinine 1.59 H 1.32 H Glucose 163 H 138 H Calcium 8.7 8.6 Consult Discharge Plan - Plan Referrals: Paresh Ceron MD [Primary Care Provider] - <Nagi Nobles - Last Filed: 11/04/17 14:03> Hospitalist Progress Note - Encounter Date of Encounter: 11/04/17 - Exam Vitals: Temp Pulse Resp BP Pulse Ox 98.3 F 65 16 135/77 95 11/04/17 11:38 11/04/17 11:38 11/04/17 11:38 11/04/17 11:38 11/04/17 11:38 - Time Spent with Patient Total time spent is greater than 50% in coordination of care (as documented) at patient's floor/unit and/or counseling patient: Internal Medicine: Result - Labs CBC & Chem 7: 11/03/17 06:09 11/04/17 12:04 Labs: BMP 11/03/17 11/04/17 11/04/17 19:40 06:18 12:04 Sodium 137 137 136 Potassium 5.8 H 5.6 H 5.3 H Chloride 110 H 111 H 109 H Carbon Dioxide 22 L 19 L 22 L BUN 43 H 35 H 32 H Creatinine 1.59 H 1.32 H 1.16 Glucose 163 H 138 H 189 H Calcium 8.7 8.6 8.7 - Attending Attestation I examined this patient and my medical decision-making was reviewed with the Resident Physician Dr. Yang. I agree with the documented findings, disposition and treatment plan as described except to the extent set forth below. MMs. Yo is a 82 year old female with a PMH of HTN, HLD, CHF and Temporal lobe epilepsy who presented to [facility] 11/02~with numbness and tingling of the right upper extremity. She denied any more weakness, / parasthesia in her Rt UE. Denied any CP. Gen: A, A, O x 3 Chest: Diminished BS b/l Heart: S1S2+ RRR No murmurs Ext: Edema + pulses + neuro : no focal deficit 1. Rt arm weakness - Possible TIA ruled out CVA CT of head, MRI of brain - negative Carotid Doppler- Left cardotid moderate stenosis f/u with vascular surgeon as an out pt 2. MARISELA with CKD-3 3. Acute hyperkalemia - mostly due to dehydration held lasix held ACEI Improving Kayexalate x 2 doses given 4. Chronic diastolic CHF not in exacerbation <Radha Yang M - Last Filed: 11/04/17 13:17> (4) Diastolic CHF Qualifiers: Heart failure chronicity: chronic Qualified Code(s): I50.32 - Chronic diastolic (congestive) heart failure (5) HTN (hypertension) Qualifiers: Hypertension type: essential hypertension Qualified Code(s): I10 - Essential (primary) hypertension (6) HLD (hyperlipidemia) Qualifiers: Hyperlipidemia type: mixed hyperlipidemia Qualified Code(s): E78.2 - Mixed hyperlipidemia (7) Epilepsy Qualifiers: Epilepsy type: unspecified Intractability: not intractable Status epilepticus: without status epilepticus Qualified Code(s): G40.909 - Epilepsy, unspecified, not intractable, without status epilepticus
[2017-11-04 12:39] LABS: Calcium 8.7 mg/dL (8.6-10.3); Potassium 5.3 mEq/L (3.5-5.1)
[2017-11-04] MEDS: CALCIFEDIOL 30 MCG PO SCH (21:47)
[2017-11-05 03:55] LABS: Calcium 8.7 mg/dL (8.6-10.3); Potassium 5.2 mEq/L (3.5-5.1)
[2017-11-05] MEDS: Levothyroxine 25 MCG TABLET PO SCH (06:18)
[2017-11-05 07:31] VITALS: BP 118/67
--- NOTE | 2017-11-05 08:36 | Discharge Summary ---
<Radha Yang - Last Filed: 11/05/17 12:47> - NOTES TO OUTPATIENT PROVIDER Notes to Outpatient Provider: Patient has order for follow BMP a few days after discharge - must follow up with PCP or cardiology for hyperkalemia likely due to medications. She should not take her propanolol untill after follow up with cardiology. Orders not resulted at time of discharge: BMP follow up Date of Encounter: 11/05/17 Time of Encounter: 08:32 - Discharge Diagnosis (1) TIA (transient ischemic attack) Priority: Primary Status: Resolved (2) Hyperkalemia Priority: Secondary Status: Acute (3) MARISELA (acute kidney injury) Priority: Secondary Status: Acute (4) Diastolic CHF Priority: Secondary Status: Chronic Qualifiers: Heart failure chronicity: chronic Qualified Code(s): I50.32 - Chronic diastolic (congestive) heart failure (5) HTN (hypertension) Priority: Secondary Status: Chronic Qualifiers: Hypertension type: essential hypertension Qualified Code(s): I10 - Essential (primary) hypertension (6) HLD (hyperlipidemia) Priority: Secondary Status: Chronic Qualifiers: Hyperlipidemia type: mixed hyperlipidemia Qualified Code(s): E78.2 - Mixed hyperlipidemia (7) Epilepsy Priority: Secondary Status: Chronic Qualifiers: Epilepsy type: unspecified Intractability: not intractable Status epilepticus: without status epilepticus Qualified Code(s): G40.909 - Epilepsy , unspecified, not intractable, without status epilepticus Hospital course: Ms. Yo is a 82 year old female with a PMH of HTN, HLD, CHF and Temporal lobe epilepsy who presented to [facility] 11/02 with numbness and tingling of the right upper extremity resolved after 30 minutes. In ED, chest X-ray wnl, UA non- diagnostic and labs K 5.9, creatinine 1.98, BUN/creatinine ratio is 30. Evaluated as stroke ruled out. Reports recent decrease in Lasix dose without adjustment of potassium supplement treated for hyperkalemia with several doses of kayexalate then calcium gluconate as potassium decreased slowl . Treated for MARISELA with gentle hydration and pedal edema remain at her baseline of +2. Per cardiology hold beta blockers due to 3 second pause seen on holter previous done as outpatient. At discharge K of 5.2 from 6.4. Her right hand still achy and occasionally feels cold. Discharge to home with home health and PT/OT. Order entered for BMP in 4 days. Medications changed: stop beta millie and hold potassium supplement. Discharge discussed with: patient - Time Spent with Patient Total time spent providing and/or coordinating discharge services: Greater than 30 minutes - Discharge Medications Home Medications: Acetaminophen [Tylenol] 650 mg PO Q6HR PRN 11/02/17 [History] Aspirin [Lo-Dose Aspirin EC] 81 mg PO DAILY 11/02/17 [History] Atorvastatin [Lipitor] 40 mg PO HS 11/02/17 [History] Calcifediol [Rayaldee] 30 mcg PO HS 11/02/17 [History] Furosemide [Lasix] 40 mg PO BID 11/02/17 [History] Levothyroxine [Synthroid] 25 mcg PO 0630 11/02/17 [History] Lisinopril [Zestril] 20 mg PO DAILY 11/02/17 [History] Loperamide HCl [Anti-Diarrheal] 2 mg PO QID PRN MDD MAX 8 TABS/24 HOURS [History] [place]-3 Fatty Acids [Fish Oil] 1,200 mg PO DAILY 11/02/17 [History] PHENobarbital [Phenobarbital] 40 mg PO BID 11/02/17 [History] carBAMazepine [Tegretol] 200 mg PO QID 11/02/17 [History] Allergies/Adverse Reactions: 3 Allergy/AdvReac Type Severity Reaction Status Date / Time codeine Allergy Anaphylaxis Verified 11/02/17 08:25 diphenhydramine Allergy Hives Verified 11/02/17 08:25 [From Benadryl] morphine Allergy Anaphylaxis Verified 11/02/17 08:25 perfume Allergy Rash Verified 11/02/17 08:25 IV contrast Allergy Anaphylaxis Uncoded 11/02/17 08:25 Date of admission: 11/03/17 18:52 Primary care physician: Paresh Ceron Discharging clinician: Radha Yang Anticipated date of discharge: 11/05/17 - Constitutional Vitals: Temp Pulse Resp BP Pulse Ox 97.9 F 78 16 118/67 97 11/05/17 07:29 11/05/17 07:29 11/05/17 07:29 11/05/17 07:29 11/05/17 07:29 General appearance: Present: A&O X 3, no acute distress, obese - Head Head exam: Present: atraumatic, normocephalic - Respiratory Respiratory exam: Present: CTAB. Absent: stridor, wheezes - Cardiovascular Cardiovascular exam: Present: RRR. Absent: gallop, rubs - GI/Abdominal GI/Abdominal exam: Present: distended, normal bowel sounds, soft. Absent: tenderness - Extremities Exam Extremities exam: Present: full ROM, pedal edema - Patient Status Disposition: Home Health Service Condition: Good Functional capacity at discharge: independent ambulation Overall status at discharge: patient is progressing back to baseline - Discharge Instructions Instructions: Hyperkalemia (DC) Follow Up With: Paresh Ceron MD [Primary Care Provider] - - Diet and Activity Activity: increase activity as tolerated Diet: low salt diet <Nagi Nobles - Last Filed: 11/05/17 13:05> Date of Encounter: 11/05/17 Hospital course: Ms. Yo is a 82 year old female - Time Spent with Patient Total time spent providing and/or coordinating discharge services: Date of admission: 11/03/17 18:52 Primary care physician: Paresh Ceron - Constitutional Vitals: Temp Pulse Resp BP Pulse Ox 97.9 F 78 16 118/67 97 11/05/17 07:29 11/05/17 07:29 11/05/17 07:29 11/05/17 07:29 11/05/17 07:29 - Attending Attestation I examined this patient and my medical decision-making was reviewed with the Resident Physician Dr. Yang. I agree with the documented findings, disposition and treatment plan as described except to the extent set forth below. MMs. Yo is a 82 year old female with a PMH of HTN, HLD, CHF and Temporal lobe epilepsy who presented to [facility] 11/02~with numbness and tingling of the right upper extremity. She denied any more weakness, / parasthesia in her Rt UE. Denied any CP. Gen: A, A, O x 3 Chest: Diminished BS b/l Heart: S1S2+ RRR No murmurs Ext: Edema + pulses + neuro : no focal deficit 1. Rt arm weakness - Possible TIA ruled out CVA CT of head, MRI of brain - negative Carotid Doppler- Left cardotid moderate stenosis f/u with vascular surgeon as an out pt 2. MARISELA with CKD-3 3. Acute hyperkalemia - mostly due to dehydration held lasix held ACEI Improved 4. Chronic diastolic CHF not in exacerbation Medically stable to d/c home today. Recommend to stop taking K + supplements
--- NOTE | 2017-11-05 08:44 | Physician Discharge Referral ---
Home Health/Hosp Referral Info Transfer to: Home Health Attending Provider: Giuliano Provider in Charge Post Discharge: PCP - Diagnosis (1) Hyperkalemia Status: Acute (2) TIA (transient ischemic attack) Status: Resolved (3) MARISELA (acute kidney injury) Status: Acute (4) Diastolic CHF Status: Chronic (5) HTN (hypertension) Status: Chronic (6) HLD (hyperlipidemia) Status: Chronic (7) Epilepsy Status: Chronic - Respiratory Orders None Smoking Cessation: Smoking cessation has been advised. For more information, call the [place] Tobacco Quit Line at 7-177-OLZB-NOW. - Diet/Nutrition Diet/Nutrition Orders: Cardiac - Activity Activity Orders: Ambulate - Services Needed Following services are medically necessary services: Home Health Aide, Physical Therapy, Occupational Therapy - Transfer Medications Home Medications: Acetaminophen [Tylenol] 650 mg PO Q6HR PRN 11/02/17 [History] Aspirin [Lo-Dose Aspirin EC] 81 mg PO DAILY 11/02/17 [History] Atorvastatin [Lipitor] 40 mg PO HS 11/02/17 [History] Calcifediol [Rayaldee] 30 mcg PO HS 11/02/17 [History] Furosemide [Lasix] 40 mg PO BID 11/02/17 [History] Levothyroxine [Synthroid] 25 mcg PO 0630 11/02/17 [History] Lisinopril [Zestril] 20 mg PO DAILY 11/02/17 [History] Loperamide HCl [Anti-Diarrheal] 2 mg PO QID PRN MDD MAX 8 TABS/24 HOURS [History] [place]-3 Fatty Acids [Fish Oil] 1,200 mg PO DAILY 11/02/17 [History] PHENobarbital [Phenobarbital] 40 mg PO BID 11/02/17 [History] carBAMazepine [Tegretol] 200 mg PO QID 11/02/17 [History] Allergies/Adverse Reactions: 3 Allergy/AdvReac Type Severity Reaction Status Date / Time codeine Allergy Anaphylaxis Verified 11/02/17 08:25 diphenhydramine Allergy Hives Verified 11/02/17 08:25 [From Benadryl] morphine Allergy Anaphylaxis Verified 11/02/17 08:25 perfume Allergy Rash Verified 11/02/17 08:25 IV contrast Allergy Anaphylaxis Uncoded 11/02/17 08:25 Certification: Further, I certify that my clinical findings support that this patient is homebound (i.e. absences from home require considerable and taxing effort and are for medical reasons or spiritism services or infrequently or short duration when for other reasons) because: Homebound Reason: Patient requires assistance of a person or device to safely leave home Attestation: My signature below is to certify that this patient is under my care and that I, or nurse practitioner, or a physician's assistant purchasing manager working with me, has a face-to -face encounter with this patient.
[2017-11-05] MEDS: carBAMazepine 200 MG TABLET PO SCH (10:06)
[2017-11-05] MEDS: Loratadine 10 MG TABLET PO SCH (10:07)
[2017-11-05] MEDS: Aspirin Enteric Coated 81 MG Tablet PO SCH (10:07)
--- NOTE | 2017-11-06 12:35 | Electrocardiograph Report ---
[address] [place] [address] Test Date: 2017-11-03 Pat Name: Mili Yo Department: 115 Room: 3A41 Gender: F Qc Scientist: : [id number] Requested By: Radha Yang Order Number: [id number] Reading MD: Kirill Song Measurements Intervals [place] Rate: 61 P: 70 NC: 294 QRS: 31 QRSD: 98 T: 38 QT: 406 QTc: 410 Interpretive Statements SINUS RHYTHM WITH FIRST DEGREE AV BLOCK INFERIOR MYOCARDIAL INFARCTION, PROBABLY OLD Electronically Signed On 11-06-2017 12:33:36 EDT by Kirill Song
== END 2017-11-05 13:22 | disposition home health service (06) | DRG 68 ==
LOC: 3ANU 03:08 → EMEROO 03:08 → 3ANU 06:53
PROVIDERS: ADMIT Family Medicine; ATTEND Family Medicine

== ENCOUNTER 2017-11-10 03:46 | Observation (INO) ==
[2017-11-10] MEDS ORDERED: Aspirin 81 MG TAB.CHEW PO ONE (04:00)
[2017-11-10] MEDS ORDERED: Nitroglycerin 0.4 MG TAB.SUBL SL ONE (04:00)
[2017-11-10 05:16] LABS: Basophils # 0.1 K/mcL (0.0-0.2); Basophils % 0.5 %; Eosinophils # 0.2 K/mcL (0.0-0.6); Eosinophils % 1.6 %; Hematocrit 39.2 % (35.3-44.9); Hemoglobin 12.9 g/dL (11.5-15.4); Immature Granulocytes % 0.8 % (0-4); Lymphocytes # 1.9 K/mcL (0.6-4.6); Mean Corpuscular HGB Conc 32.9 g/dL (31.6-35.5); Mean Corpuscular Hemoglobin 29.7 pg (28.0-33.3); Mean Corpuscular Volume 90.3 fL (83.0-100.0); Monocytes % 10.4 %; Neutrophils # 6.5 K/mcL (1.6-8.9); Platelet Count 246 K/mcL (140-400); Red Blood Count 4.34 M/mcL (3.82-4.97); Red Cell Distribution Width 12.6 % (11.5-14.5); Segmented Neutrophils % 66.7 %
--- NOTE | 2017-11-10 05:37 | Emergency Department Note ---
Disposition Clinical Impression: Chest pain Qualifiers: Chest pain type: unspecified Qualified Code(s): R07.9 - Chest pain, unspecified Disposition: Admitted As Inpatient Condition: Fair Referrals: Paresh Ceron MD [Primary Care Provider] - Forms: ED Satisfaction Letter Time of Disposition: 06:56 Chest Pain HPI - General Chief Complaint: ED Chest Pain Stated Complaint: chest pain Time Seen by Provider: 11/10/17 03:55 Source: patient, EMS Limitations: no limitations Vital Signs Reviewed: Yes Nursing Notes Reviewed: Yes - History of Present Illness HPI Narrative: Patient is an 82-year-old female who presents to [facility] ED with a chief complaint of chest pain. States she woke up abruptly or 3 AM with left-sided chest pain and got nauseated and vomited multiple times. States it is a dull achy pain. When EMS arrived, they gave her a full dose aspirin. Patient states the pain has eased up some since arriving here. Patient was recently admitted last week for CVA workup due to right sided hand numbness. States she still does have some of that but it has improved. Pt complaint: chest pain Onset (ago): hour(s) Duration: constant Onset: during rest Pain Location: left chest Severity: moderate Severity scale (1-10): 0 Quality: aching Pain Radiation: neck Improves with: nothing Worsens with: nothing Associated symptoms: Reports: nausea, vomiting. Denies: diaphoresis, dyspnea, fever, cough Treatments prior to arrival chest pain: aspirin - Related Data Home Medications Medication Instructions Recorded Confirmed Acetaminophen [Tylenol] 650 mg PO Q6HR PRN 11/02/17 11/10/17 Aspirin [Lo-Dose Aspirin EC] 81 mg PO DAILY 11/02/17 11/10/17 Atorvastatin [Lipitor] 40 mg PO HS 11/02/17 11/10/17 Calcifediol [Rayaldee] 30 mcg PO HS 11/02/17 11/10/17 Furosemide [Lasix] 40 mg PO BID 11/02/17 11/10/17 Levothyroxine [Synthroid] 25 mcg PO 0630 11/02/17 11/10/17 Lisinopril [Zestril] 20 mg PO DAILY 11/02/17 11/10/17 Loperamide HCl [Anti-Diarrheal] 2 mg PO QID PRN MDD MAX 8 TABS/24 11/02/1711/10 HOURS [place]-3 Fatty Acids [Fish Oil] 1,200 mg PO DAILY 11/02/17 11/10/17 PHENobarbital [Phenobarbital] 60 mg PO BID 11/02/17 11/10/17 carBAMazepine [Tegretol] 200 mg PO QID 11/02/17 11/10/17 Allergies Allergy/AdvReac Type Severity Reaction Status Date / Time codeine Allergy Anaphylaxis Verified 11/02/17 08:25 diphenhydramine Allergy Hives Verified 11/02/17 08:25 [From Benadryl] morphine Allergy Anaphylaxis Verified 11/02/17 08:25 perfume Allergy Rash Verified 11/02/17 08:25 IV contrast Allergy Anaphylaxis Uncoded 11/02/17 08:25 All systems ED: reviewed and negative except as stated. Chest Pain PMH - Past Medical History Medical history: Reports: CHF, hypertension, thyroid disease, other Surgical history: Reports: appendectomy, hysterectomy Psychiatric history: Reports: no psych history - Social History Smoking Status: Never smoker Alcohol use: Reports: none Drug use: Reports: none Physical Exam - General Limitations: no limitations General appearance: alert, in no apparent distress - Head Head exam: atraumatic, normocephalic, normal inspection - Eye Eye exam: Present: EOMI - ENT ENT exam: normal exam, normal oropharynx, mucous membranes moist - Chest Chest inspection: Present: normal inspection, symmetric chest wall rise, tenderness (To palpation of the left chest) - Respiratory Respiratory exam: Present: normal lung sounds bilaterally - Cardiovascular Cardiovascular exam: Present: regular rate, normal rhythm, normal heart sounds - Abdominal Exam Abdominal exam: Present: soft, Non-Tender. Absent: tenderness, distention, guarding, rebound, rigidity - Extremities Exam Extremities exam: Present: normal inspection, full ROM. Absent: tenderness, pedal edema - Neurological Exam Neurological exam: Present: alert, oriented X3 - Psychiatric Psychiatric exam: Present: normal affect, normal mood - Skin Skin exam: Present: warm, dry, intact, normal color Course Course Narrative: Patient seen and examined. Left-sided chest pain worse with palpation. She did wake up at 3 AM and got nauseated and vomited. Still having some chest pain. Nitroglycerin ordered. Cardiopulmonary workup initiated. - Reevaluation(s) Reevaluation #1: Patient's lab work unremarkable. We will admit for chest pain, ACS workup. Patient is now pain-free. I discussed with the hospitalists Dr. Tran who has accepted patient for admission. Time: 06:56 Vital Signs Temperature 99 F 11/10/17 03:47 Pulse Rate 98 11/10/17 03:47 Respiratory Rate 18 11/10/17 03:47 Blood Pressure 109/82 11/10/17 03:47 O2 Sat by Pulse Oximetry 96 11/10/17 03:47 Temperature 99 F 11/10/17 03:47 Pulse Rate 82 11/10/17 06:09 Respiratory Rate 20 11/10/17 06:09 Blood Pressure 88/52 11/10/17 06:09 O2 Sat by Pulse Oximetry 94 11/10/17 06:09 Oxygen Delivery Oxygen Delivery Room Air Chest Pain - Medical Records Medical records reviewed: Yes I reviewed the patient's medical records. - Lab Data Lab results reviewed: Yes I reviewed the patient's lab results. Result diagrams: 11/10/17 04:51 11/10/17 04:51 Lab Results 11/10/17 11/10/17 Range/Units 04:51 04:51 WBC 9.7 (4.3-11.1) K/mcL RBC 4.34 (3.82-4.97) M/mcL Hgb 12.9 (11.5-15.4) g/dL Hct 39.2 (35.3-44.9) % MCV 90.3 (83.0-100.0) fL MCH 29.7 (28.0-33.3) pg MCHC 32.9 (31.6-35.5) g/dL RDW 12.6 (11.5-14.5) % Plt Count 246 (140-400) K/mcL MPV 10.0 (9.4-12.4) fL Immature Gran % 0.8 (0-4) % Seg Neutrophils % 66.7 % Lymphocytes % 20.0 % Monocytes % 10.4 % Eosinophils % 1.6 % Basophils % 0.5 % Neutrophils # 6.5 (1.6-8.9) K/mcL Lymphocytes # 1.9 (0.6-4.6) K/mcL Monocytes # 1.0 (0.0-1.3) K/mcL Eosinophils # 0.2 (0.0-0.6) K/mcL Basophils # 0.1 (0.0-0.2) K/mcL Sodium 135 L (136-145) mEq/L Potassium 4.6 (3.5-5.1) mEq/L Chloride 102 (98-107) mEq/L Carbon Dioxide 24 (23-29) mEq/L BUN 53 H (8-23) mg/dL Creatinine 1.46 H (0.60-1.20) mg/dL Est GFR ( Amer) 42 L (> 60) Est GFR (Non-Af Amer) 34 L (> 60) BUN/Creatinine Ratio 36 H (6-26) Glucose 183 H (70-105) mg/dL Calculated Osmolality 299 (280-300) Calcium 8.7 (8.6-10.3) mg/dL Troponin I < 0.03 (< 0.04) ng/mL - Radiology Data Radiology results reviewed: Yes I reviewed the patient's radiology results. Chest X-Ray 11/10/17 04:00 IMPRESSION: No acute findings. D/ / Nas Urban / Nas Urban Interpreting Provider: Nas Urban - EKG Data EKG attestation: Yes I reviewed and interpreted this EKG. EKG results narrative: EKG done at 356 shows normal sinus rhythm with a rate of [address] elevation or depression noted. Normal axis. Prominent Q-wave noted in lead 3. Heart Score - Score History: Slightly Suspicious EKG: Non Specific repolarisation Disturbance Age: Greater than 65 Risk Factors: 1-2 risk factors Troponin: Less than normal limit HEART Score Total: 4
[2017-11-10 06:00] LABS: BUN/Creatinine Ratio 36 (6-26); Blood Urea Nitrogen 53 mg/dL (8-23); Calcium 8.7 mg/dL (8.6-10.3); Carbon Dioxide 24 mEq/L (23-29); Chloride 102 mEq/L (98-107); Glucose 183 mg/dL (70-105); Osmolality,Calculated 299 (280-300); Potassium 4.6 mEq/L (3.5-5.1); Sodium 135 mEq/L (136-145); eGFR For Non-African Americans 34 (> 60)
[2017-11-10 06:02] LABS: Troponin I < 0.03 ng/mL (< 0.04)
--- NOTE | 2017-11-10 06:07 | Emergency Department Note ---
Disposition Clinical Impression: Chest pain Qualifiers: Chest pain type: unspecified Qualified Code(s): R07.9 - Chest pain, unspecified Disposition: Admitted As Inpatient Condition: Fair Referrals: Paresh Ceron MD [Primary Care Provider] - Forms: ED Satisfaction Letter General Adult HPI - General Chief complaint: ED Chest Pain Stated complaint: chest pain Time Seen by Provider: 11/10/17 03:55 Source: patient, EMS Limitations: no limitations Nursing Notes Reviewed: Yes Vital Signs Reviewed: Yes - History of Present Illness Pain Scale: 0 - Related Data Home Medications Medication Instructions Recorded Confirmed Acetaminophen [Tylenol] 650 mg PO Q6HR PRN 11/02/17 11/10/17 Aspirin [Lo-Dose Aspirin EC] 81 mg PO DAILY 11/02/17 11/10/17 Atorvastatin [Lipitor] 40 mg PO HS 11/02/17 11/10/17 Calcifediol [Rayaldee] 30 mcg PO HS 11/02/17 11/10/17 Furosemide [Lasix] 40 mg PO BID 11/02/17 11/10/17 Levothyroxine [Synthroid] 25 mcg PO 0630 11/02/17 11/10/17 Lisinopril [Zestril] 20 mg PO DAILY 11/02/17 11/10/17 Loperamide HCl [Anti-Diarrheal] 2 mg PO QID PRN MDD MAX 8 TABS/24 11/02/1711/10 HOURS [place]-3 Fatty Acids [Fish Oil] 1,200 mg PO DAILY 11/02/17 11/10/17 PHENobarbital [Phenobarbital] 60 mg PO BID 11/02/17 11/10/17 carBAMazepine [Tegretol] 200 mg PO QID 11/02/17 11/10/17 Allergies Allergy/AdvReac Type Severity Reaction Status Date / Time codeine Allergy Anaphylaxis Verified 11/02/17 08:25 diphenhydramine Allergy Hives Verified 11/02/17 08:25 [From Benadryl] morphine Allergy Anaphylaxis Verified 11/02/17 08:25 perfume Allergy Rash Verified 11/02/17 08:25 IV contrast Allergy Anaphylaxis Uncoded 11/02/17 08:25 Past Medical History - Past Medical History Medical history: Reports: CHF, hypertension, thyroid disease, other Surgical history: Reports: appendectomy, hysterectomy Psychiatric history: Reports: no psych history - Social History Smoking Status: Never smoker Smokeless Tobacco Status: No Alcohol use: Reports: none Drug use: Reports: none Physical Exam - General Limitations: no limitations General appearance: alert, in no apparent distress Course Vital Signs Temperature 99 F 11/10/17 03:47 Pulse Rate 98 11/10/17 03:47 Respiratory Rate 18 11/10/17 03:47 Blood Pressure 109/82 11/10/17 03:47 O2 Sat by Pulse Oximetry 96 11/10/17 03:47 Temperature 99 F 11/10/17 03:47 Pulse Rate 82 11/10/17 06:09 Respiratory Rate 20 11/10/17 06:09 Blood Pressure 88/52 11/10/17 06:09 O2 Sat by Pulse Oximetry 94 11/10/17 06:09 Oxygen Delivery Oxygen Delivery Room Air Medical Decision Making - Medical Records Medical records reviewed: Yes I reviewed the patient's medical records. - Lab Data Lab results reviewed: Yes I reviewed the patient's lab results. Result diagrams: 11/10/17 04:51 11/10/17 04:51 Lab Results 11/10/17 11/10/17 Range/Units 04:51 04:51 WBC 9.7 (4.3-11.1) K/mcL RBC 4.34 (3.82-4.97) M/mcL Hgb 12.9 (11.5-15.4) g/dL Hct 39.2 (35.3-44.9) % MCV 90.3 (83.0-100.0) fL MCH 29.7 (28.0-33.3) pg MCHC 32.9 (31.6-35.5) g/dL RDW 12.6 (11.5-14.5) % Plt Count 246 (140-400) K/mcL MPV 10.0 (9.4-12.4) fL Immature Gran % 0.8 (0-4) % Seg Neutrophils % 66.7 % Lymphocytes % 20.0 % Monocytes % 10.4 % Eosinophils % 1.6 % Basophils % 0.5 % Neutrophils # 6.5 (1.6-8.9) K/mcL Lymphocytes # 1.9 (0.6-4.6) K/mcL Monocytes # 1.0 (0.0-1.3) K/mcL Eosinophils # 0.2 (0.0-0.6) K/mcL Basophils # 0.1 (0.0-0.2) K/mcL Sodium 135 L (136-145) mEq/L Potassium 4.6 (3.5-5.1) mEq/L Chloride 102 (98-107) mEq/L Carbon Dioxide 24 (23-29) mEq/L BUN 53 H (8-23) mg/dL Creatinine 1.46 H (0.60-1.20) mg/dL Est GFR ( Amer) 42 L (> 60) Est GFR (Non-Af Amer) 34 L (> 60) BUN/Creatinine Ratio 36 H (6-26) Glucose 183 H (70-105) mg/dL Calculated Osmolality 299 (280-300) Calcium 8.7 (8.6-10.3) mg/dL Troponin I < 0.03 (< 0.04) ng/mL - Radiology Data Radiology results reviewed: Yes I reviewed the patient's radiology results. Chest X-Ray 11/10/17 04:00 IMPRESSION: No acute findings. D/ / Nas Urban / Nas Urban Interpreting Provider: Nas Urban - EKG Data EKG #1 EKG attestation: Yes I reviewed and interpreted this EKG. EKG results narrative: EKG shows a sinus rhythm with first-degree AV block, ventricular rate of 85. No acute ST segment elevation or depression. No significant change from prior EKG dated 11/03/2017. Attestation Statement - Attestation Attestation: I, Scott Conklin MD, personally evaluated this patient and discussed their management with the resident physician. I reviewed the resident's note and agree with the documented findings, medical decision making, and plan of care. 82-year-old female presents to the emergency department with a complaint that she had some indigestion before going to bed last evening. This seemed to go away and she went to bed and went to sleep. She awoke at 3 AM with nausea and 2 episodes of vomiting. She had left mid chest pain. She also complains of dull achy pain in the left side of the neck radiating down to the left shoulder. She admits to shortness of breath associated with this episode. She received aspirin per EMS with some improvement. Patient denies any prior history of coronary artery disease or SC. She does have a history of CHF. On examination patient is a well-developed well-nourished well-appearing elderly female in no acute distress. She is alert and oriented 3. There is no cyanosis or diaphoresis. There is some tenderness palpation over the left anterior chest wall. No bony crepitus or subcutaneous emphysema. Breath sounds are clear and equal bilaterally. Heart regular rate and rhythm. Abdomen soft and nontender with normal bowel sounds. Labs reviewed. No acute changes on EKG. Chest x-ray negative. The hospitalist, Dr. Tran, was consulted and accepted admission of the patient.
[2017-11-10] MEDS ORDERED: 0.9 % Sodium Chloride 500 ML IVC ONE (07:01)
[2017-11-10] MEDS ORDERED: Naloxone 0.4 MG/ML INJ IVP PRN (08:19)
[2017-11-10] MEDS ORDERED: Nitroglycerin 0.4 MG TAB.SUBL SL PRN (08:22)
[2017-11-10] MEDS ORDERED: PHENobarbital 15 MG TABLET PO SCH (09:00)
[2017-11-10] MEDS: (Omega-3 Fatty Acids [Fish Oil] 1,200 MG) PO SCH (09:14)
[2017-11-10] MEDS: carBAMazepine 200 MG TABLET PO SCH ×4 (09:18→21:37)
[2017-11-10] MEDS: Aspirin Enteric Coated 81 MG Tablet PO SCH (09:18)
[2017-11-10] MEDS: Lisinopril 20 MG TABLET PO SCH (09:18)
[2017-11-10] MEDS: Furosemide 40 MG TABLET PO SCH ×2 (09:18→16:37)
[2017-11-10] MEDS ORDERED: Ondansetron 4 MG/2 ML VIAL IVP PRN (09:20)
--- NOTE | 2017-11-10 09:26 | Internal Med History&Physical ---
Date of Encounter: 11/10/17 Time of Encounter: 08:00 Internal Medicine - H&P: HPI Chief complaint: Chest pain Admitted From: Home Plans for Post Hospital Care: Home History of present illness: Ms. Yo is a 82 year old female present to ER for chest pain. Past medical history is significant for epilepsy, right carotid stenosis, CHF. Patient said started from 1 AM she feels nausea. Started from 3am she has diarrhea 2 and vomiting 3. The diarrhea is watery. The vomiting is stomach content, no blood in it. Patient also started to have chest pain, which located on left chest, dull pain, 4/10, radiated to left arm and neck and shoulder. The chest pain is intermittent, lasts for less than 1 hour, seems to respond to nitroglycerin. Patient denies diaphoresis during chest pain. She said that she has some shortness of breath during chest pain. In the emergency room, EKG is unremarkable. Chest x-ray negative. Patient was admitted for chest pain to rule out ACS. Past Med Surg Social Fam HX - Past Medical History Medical history: CHF, hypertension, thyroid disease, other Additional medical history: epilepsy Psychiatric history: no psych history - Past Surgical History Surgical History: appendectomy, hysterectomy Additional surgical history: shoulder, ankle - Social History Smoking Status: Never smoker Smokeless Tobacco Status: No Alcohol use: none Drug use: none - Family History Mother Living Status: Hx Family Cancer: Yes (ovarian) Hx Family Endocrine Disorder: Yes (diabetes) Father Living Status: Hx Family Cancer: Yes Sister Living Status: Hx Family Cardiac Disorders: Yes (CHF) Hx Family Endocrine Disorder: Yes (diabetes) Internal Medicine - H&P: Meds Acetaminophen [Tylenol] 650 mg PO Q6HR PRN 11/02/17 [History] Aspirin [Lo-Dose Aspirin EC] 81 mg PO DAILY 11/02/17 [History] Atorvastatin [Lipitor] 40 mg PO HS 11/02/17 [History] Calcifediol [Rayaldee] 30 mcg PO HS 11/02/17 [History] Furosemide [Lasix] 40 mg PO BID 11/02/17 [History] Levothyroxine [Synthroid] 25 mcg PO 0630 11/02/17 [History] Lisinopril [Zestril] 20 mg PO DAILY 11/02/17 [History] Loperamide HCl [Anti-Diarrheal] 2 mg PO QID PRN MDD MAX 8 TABS/24 HOURS [History] [place]-3 Fatty Acids [Fish Oil] 1,200 mg PO DAILY 11/02/17 [History] PHENobarbital [Phenobarbital] 60 mg PO BID 11/02/17 [History] carBAMazepine [Tegretol] 200 mg PO QID 11/02/17 [History] 3 Allergy/AdvReac Type Severity Reaction Status Date / Time codeine Allergy Anaphylaxis Verified 11/02/17 08:25 diphenhydramine Allergy Hives Verified 11/02/17 08:25 [From Benadryl] morphine Allergy Anaphylaxis Verified 11/02/17 08:25 perfume Allergy Rash Verified 11/02/17 08:25 IV contrast Allergy Anaphylaxis Uncoded 11/02/17 08:25 All Systems PM: A 10-system review of systems was performed and is negative for pertinent findings except as documented above in the HPI. - Constitutional Vitals: Temp Pulse Resp BP Pulse Ox 97.8 F 81 15 125/63 95 11/10/17 08:28 11/10/17 08:28 11/10/17 08:28 11/10/17 08:28 11/10/17 08:28 General appearance: Present: A&O X 3, no acute distress, answers questions appropriately - Head Head exam: Present: atraumatic, normocephalic - Eye Eye exam: Present: PERRL, conjuntiva pink, sclera anicteric Pupils: Present: PERRL - Neck Neck exam general surgery: Present: supple, trachea midline. Absent: lymphadenopathy - Respiratory Respiratory exam: Present: chest wall tenderness (Patient has left side chest wall tenderness), CTAB. Absent: accessory muscle use, rales, rhonchi, wheezes - Cardiovascular Cardiovascular exam: Present: RRR, +S1, +S2. Absent: diastolic murmur, gallop, rubs, systolic murmur - GI/Abdominal GI/Abdominal exam: Present: normal bowel sounds, soft, no peritoneal signs. Absent: distended, tenderness - Extremities Exam Extremities exam: Present: calf tenderness (On left leg), pedal edema ( Bilateral pitting pedal edema), warm, radial pulses palpable and symmetrical. Absent: cyanotic - Neurological Exam Neurological exam: Present: CN II-XII intact, oriented X3, no focal deficits. Absent: pronater drift, facial droop, speech deficit - Skin Skin exam: Present: dry, intact Internal Med - H&P Results - Labs CBC & Chem 7: 11/10/17 04:51 11/10/17 04:51 - EKG Data -: EKG Interpreted by Myself EKG shows normal: sinus rhythm Rate: normal - Assessment and plan (1) Chest pain Current Visit: Yes Status: Acute Assessment and plan: Patient has intermittent chest pain, with left chest wall tenderness. Most likely muscular pain. However, pain seems respond to nitroglycerin, need to rule out ACS. - Place patient on continuous cardiac monitoring. - Track 3 sets of troponin - Nitroglycerin as needed - Patient has recent echo in last week, results reviewed, unremarkable. - Patient currently still complaining of mild chest pain, will hold stress test. Will recommend patient to follow up with her cardiology as outpatient and consider stress test per cardiology. Qualifiers: Chest pain type: unspecified Qualified Code(s): R07.9 - Chest pain, unspecified (2) DVT prophylaxis Current Visit: No Status: Acute Assessment and plan: EPCDs. Patient complaining of left leg tenderness, will order doppler venous to rule out DVT. (3) Diastolic CHF Current Visit: No Status: Chronic Assessment and plan: Appears euvolemic. Continue home medications. Qualifiers: Heart failure chronicity: chronic Qualified Code(s): I50.32 - Chronic diastolic (congestive) heart failure (4) Epilepsy Current Visit: No Status: Chronic Assessment and plan: Continue home medications. Qualifiers: Epilepsy type: unspecified Intractability: not intractable Status epilepticus: without status epilepticus Qualified Code(s): G40.909 - Epilepsy , unspecified, not intractable, without status epilepticus (5) HTN (hypertension) Current Visit: No Status: Chronic Assessment and plan: Continue home medications, closely monitor BP. Qualifiers: Hypertension type: essential hypertension Qualified Code(s): I10 - Essential (primary) hypertension (6) Nausea vomiting and diarrhea Current Visit: Yes Status: Acute Assessment and plan: Abdominal exam is benign. Consider viral gastroenteritis, give low rate IV fluid to avoid dehydration. Symptomatic treatment for nausea. Patient has recent hospitalization, will check stool to rule out C. difficile. - Time Spent With Patient Total time spent is greater than 50% in coordination of care (as documented) at patient's floor/unit and/or counseling patient: 40 minutes Greater than 35 minutes
--- NOTE | 2017-11-10 10:53 | Electrocardiograph Report ---
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
[2017-11-10] MEDS: Acetaminophen 325 MG TABLET PO PRN (16:37)
[2017-11-10] MEDS: CALCIFEDIOL 30 MCG PO SCH (21:57)
[2017-11-10] MEDS: Loratadine 10 MG TABLET PO SCH (22:17)
[2017-11-11] MEDS: Levothyroxine 25 MCG TABLET PO SCH (05:52)
[2017-11-11 05:54] LABS: Basophils % 0.5 %; Eosinophils # 0.1 K/mcL (0.0-0.6); Eosinophils % 1.9 %; Hematocrit 37.6 % (35.3-44.9); Hemoglobin 12.1 g/dL (11.5-15.4); Immature Granulocytes % 0.9 % (0-4); Lymphocytes % 39.4 %; Mean Corpuscular HGB Conc 32.2 g/dL (31.6-35.5); Mean Corpuscular Hemoglobin 29.9 pg (28.0-33.3); Mean Corpuscular Volume 92.8 fL (83.0-100.0); Mean Platelet Volume 9.9 fL (9.4-12.4); Monocytes # 0.8 K/mcL (0.0-1.3); Monocytes % 10.6 %; Neutrophils # 3.5 K/mcL (1.6-8.9); Platelet Count 219 K/mcL (140-400); Red Blood Count 4.05 M/mcL (3.82-4.97); Red Cell Distribution Width 12.7 % (11.5-14.5); Segmented Neutrophils % 46.7 %
[2017-11-11 06:21] LABS: Calcium 8.2 mg/dL (8.6-10.3); Chol/HDL Ratio 4.9 (0-4.9); Potassium 4.8 mEq/L (3.5-5.1)
[2017-11-11] MEDS: (Omega-3 Fatty Acids [Fish Oil] 1,200 MG) PO SCH (08:23)
[2017-11-11] MEDS: Lisinopril 20 MG TABLET PO SCH (08:23)
[2017-11-11] MEDS: Furosemide 40 MG TABLET PO SCH (08:23)
[2017-11-11] MEDS: carBAMazepine 200 MG TABLET PO SCH ×4 (08:23→20:44)
[2017-11-11] MEDS: Aspirin Enteric Coated 81 MG Tablet PO SCH (08:23)
[2017-11-11] MEDS: Loratadine 10 MG TABLET PO SCH (08:23)
--- NOTE | 2017-11-11 13:04 | Internal Med Progress Note ---
Hospitalist Progress Note - Encounter Date of Encounter: 11/11/17 Time of Encounter: 13:02 - Subjective Interval History: Patient seen and examined at bedside - she complains of being tired. No diarrhea today - Exam Vitals: Temp Pulse Resp BP Pulse Ox 97.9 F 73 16 104/66 96 11/11/17 11:42 11/11/17 11:42 11/11/17 11:42 11/11/17 11:42 11/11/17 11:42 Exam: GEN: well appearing obese female in no acute distress, A&Ox3, breathing room air SKIN: mild lower extremity venous stasis dermatitis changes - erythematous HEAD: atraumatic NECK: normal ROM, no lymphadenopathy HEART: RRR LUNGS: CTAB, no wheezes, rales ABD: BSx4, no organomegaly, non tender to palpation MSK: normal ROM in UE and LE - Assessment and Plan (1) Chest pain Current Visit: Yes Status: Acute Assessment and Plan: Patient has intermittent chest pain, with left chest wall tenderness. Most likely muscular pain. However, pain seems respond to nitroglycerin, need to rule out ACS. - Place patient on continuous cardiac monitoring. - Track 3 sets of troponin - Nitroglycerin as needed - Patient has recent echo in last week, results reviewed, unremarkable. - Patient currently still complaining of mild chest pain, will hold stress test. Will recommend patient to follow up with her cardiology as outpatient and consider stress test per cardiology. (2) Epilepsy Current Visit: No Status: Chronic Assessment and Plan: Continue home medications. seizure precaution (3) HTN (hypertension) Current Visit: No Status: Chronic Assessment and Plan: Low BP we will hold lisinopril cont with IVF (4) DVT prophylaxis Current Visit: No Status: Acute Assessment and Plan: EPCDs. Patient complaining of left leg tenderness, will order doppler venous to rule out DVT. (5) Diastolic CHF Current Visit: No Status: Chronic Assessment and Plan: Appears euvolemic. Continue home medications. (6) Nausea vomiting and diarrhea Current Visit: Yes Status: Acute Assessment and Plan: Abdominal exam is benign. Consider viral gastroenteritis, give low rate IV fluid to avoid dehydration. Symptomatic treatment for nausea. Patient has recent hospitalization, will check stool to rule out C. difficile as well as GI panel zofran as needed - Time Spent with Patient Total time spent is greater than 50% in coordination of care (as documented) at patient's floor/unit and/or counseling patient: Internal Medicine: Result - Labs CBC & Chem 7: 11/11/17 05:21 11/11/17 05:21 Labs: Short CBC 11/11/17 Range/Units 05:21 WBC 7.5 (4.3-11.1) K/mcL Hgb 12.1 (11.5-15.4) g/dL Hct 37.6 (35.3-44.9) % Plt Count 219 (140-400) K/mcL Neutrophils # 3.5 (1.6-8.9) K/mcL BMP 11/11/17 05:21 Sodium 134 L Potassium 4.8 Chloride 102 Carbon Dioxide 23 BUN 46 H Creatinine 1.41 H Glucose 134 H Calcium 8.2 L Cardiac Enzymes 11/10/17 Range/Units 16:42 Troponin I < 0.03 (< 0.04) ng/mL Consult Discharge Plan - Plan Referrals: Paresh Ceron MD [Primary Care Provider] - (1) Chest pain Qualifiers: Chest pain type: unspecified Qualified Code(s): R07.9 - Chest pain, unspecified (2) Epilepsy Qualifiers: Epilepsy type: unspecified Intractability: not intractable Status epilepticus: without status epilepticus Qualified Code(s): G40.909 - Epilepsy, unspecified, not intractable, without status epilepticus (3) HTN (hypertension) Qualifiers: Hypertension type: essential hypertension Qualified Code(s): I10 - Essential (primary) hypertension (5) Diastolic CHF Qualifiers: Heart failure chronicity: chronic Qualified Code(s): I50.32 - Chronic diastolic (congestive) heart failure
[2017-11-11] MEDS: Acetaminophen 325 MG TABLET PO PRN (15:46)
[2017-11-11] MEDS: CALCIFEDIOL 30 MCG PO SCH (20:44)
[2017-11-12] MEDS: Acetaminophen 325 MG TABLET PO PRN (03:33)
[2017-11-12] MEDS: Levothyroxine 25 MCG TABLET PO SCH (04:11)
[2017-11-12 04:29] LABS: Basophils # 0.1 K/mcL (0.0-0.2); Basophils % 0.8 %; Eosinophils # 0.2 K/mcL (0.0-0.6); Eosinophils % 2.7 %; Hematocrit 35.8 % (35.3-44.9); Hemoglobin 11.6 g/dL (11.5-15.4); Immature Granulocytes % 1.2 % (0-4); Immature Platelets 3.3 % (1.1-6.1); Lymphocytes # 2.8 K/mcL (0.6-4.6); Lymphocytes % 38.2 %; Mean Corpuscular HGB Conc 32.4 g/dL (31.6-35.5); Mean Corpuscular Hemoglobin 29.8 pg (28.0-33.3); Mean Platelet Volume 9.9 fL (9.4-12.4); Monocytes # 0.8 K/mcL (0.0-1.3); Monocytes % 11.4 %; Neutrophils # 3.4 K/mcL (1.6-8.9); Platelet Count 209 K/mcL (140-400); Red Blood Count 3.89 M/mcL (3.82-4.97); Red Cell Distribution Width 12.4 % (11.5-14.5); Segmented Neutrophils % 45.7 %
[2017-11-12 04:50] LABS: Potassium 4.6 mEq/L (3.5-5.1)
[2017-11-12] MEDS: (Omega-3 Fatty Acids [Fish Oil] 1,200 MG) PO SCH (10:00)
[2017-11-12] MEDS: Aspirin Enteric Coated 81 MG Tablet PO SCH (10:02)
[2017-11-12] MEDS: carBAMazepine 200 MG TABLET PO SCH ×2 (10:02→14:20)
[2017-11-12] MEDS: Loratadine 10 MG TABLET PO SCH (10:02)
[2017-11-12 12:36] VITALS: BP 100/60
--- NOTE | 2017-11-12 16:11 | Discharge Summary ---
- NOTES TO OUTPATIENT PROVIDER Notes to Outpatient Provider: Presented with diarrhea N/V taking lasix/ lisinopril at home- low B/P. She was given IVF and did improve. She will need to monitor chem 7. Had CP troponin neg X3 EKG ok reproducible pain - follow up cardiology for outpatient cardiac stress test. Orders not resulted at time of discharge: Pending orders 11/11/17 17:03 EKG [ECG 12 lead ECG] [ECG] Routine 11/12/17 10:30 EKG [ECG 12 lead ECG] [ECG] Routine Date of Encounter: 11/12/17 Time of Encounter: 16:05 - Discharge Diagnosis (1) Chest pain Priority: Primary Status: Acute Qualifiers: Chest pain type: unspecified Qualified Code(s): R07.9 - Chest pain, unspecified (2) Epilepsy Priority: Secondary Status: Chronic Qualifiers: Epilepsy type: unspecified Intractability: not intractable Status epilepticus: without status epilepticus Qualified Code(s): G40.909 - Epilepsy , unspecified, not intractable, without status epilepticus (3) HTN (hypertension) Priority: Secondary Status: Chronic Qualifiers: Hypertension type: essential hypertension Qualified Code(s): I10 - Essential (primary) hypertension (4) Diastolic CHF Priority: Secondary Status: Chronic Qualifiers: Heart failure chronicity: chronic Qualified Code(s): I50.32 - Chronic diastolic (congestive) heart failure (5) Nausea vomiting and diarrhea Priority: Secondary Status: Acute Hospital course: Ms. Yo is a 82 year old female past medical hx of epilepsy r carotid stenosis CHF HTN thyroid disease . Patient was recently admitted to this facility for TIA 11/02/2017 She had hyperkalemia and was given Kayexalate. She states that prioir to presenting to the ED she flt nausated had diarrhea x2 and vomited x3 She denies any hematochezia hematemesis or melena . She also expereinced some chest pain dull 4/10 radiating to L arm neck and shoulder intermittent and lasted less than 1 hour pain responded to nitroglycerin S IN ED CXR negative , EKG with no ST T wave abnormality troponin negative x3. On assessment the pain seemed more musculoskeletal - she had reproducible pain to L chest on palpation She did not have anymore diarrhea N/V she had formed stool No leukocytosis or fever No abd pain She was hypotensive and her lasix and lisinopril was held She was given IVF and BP improved / She did have a low sodium today -however most likely rt fluid - she has an appointment with PCP in am we will check chem 7 as outpatient. We will have patient follow up with cardiology as outpatient for possible outpatient stress test- she is scheduled for [facility] next week. I advised her to hold her lasix and lisinopril until she sees her PCP she verbalized understanding SHe is hemodynamically stable and ready for discharge - Time Spent with Patient Total time spent providing and/or coordinating discharge services: - Discharge Medications Home Medications: Acetaminophen [Tylenol] 650 mg PO Q6HR PRN 11/02/17 [History] Aspirin [Lo-Dose Aspirin EC] 81 mg PO DAILY 11/02/17 [History] Atorvastatin [Lipitor] 40 mg PO HS 11/02/17 [History] Calcifediol [Rayaldee] 30 mcg PO HS 11/02/17 [History] Levothyroxine [Synthroid] 25 mcg PO 0630 11/02/17 [History] Loperamide HCl [Anti-Diarrheal] 2 mg PO QID PRN MDD MAX 8 TABS/24 HOURS [History] [place]-3 Fatty Acids [Fish Oil] 1,200 mg PO DAILY 11/02/17 [History] PHENobarbital [Phenobarbital] 60 mg PO BID 11/02/17 [History] carBAMazepine [Tegretol] 200 mg PO QID 11/02/17 [History] Allergies/Adverse Reactions: 3 Allergy/AdvReac Type Severity Reaction Status Date / Time codeine Allergy Anaphylaxis Verified 11/02/17 08:25 diphenhydramine Allergy Hives Verified 11/02/17 08:25 [From Benadryl] morphine Allergy Anaphylaxis Verified 11/02/17 08:25 perfume Allergy Rash Verified 11/02/17 08:25 IV contrast Allergy Anaphylaxis Uncoded 11/02/17 08:25 Date of admission: 11/10/17 07:15 Primary care physician: Paresh Ceron Discharging clinician: Abby Bauman Anticipated date of discharge: 11/12/17 - Constitutional Vitals: Temp Pulse Resp BP Pulse Ox 97.7 F 70 17 100/60 97 11/12/17 12:16 11/12/17 12:24 11/12/17 12:16 11/12/17 12:24 11/12/17 12:16 General appearance: Present: A&O X 3, no acute distress, answers questions appropriately - Head Head exam: Present: atraumatic, normocephalic - Eye Eye exam: Present: PERRL, conjuntiva pink, sclera anicteric Pupils: Present: PERRL - Neck Neck exam general surgery: Present: supple, trachea midline. Absent: lymphadenopathy - Respiratory Respiratory exam: Present: CTAB. Absent: accessory muscle use, rales, rhonchi, wheezes - Cardiovascular Cardiovascular exam: Present: RRR, +S1, +S2. Absent: diastolic murmur, gallop, rubs, systolic murmur - GI/Abdominal GI/Abdominal exam: Present: normal bowel sounds, soft, no peritoneal signs. Absent: distended, tenderness - Extremities Exam Extremities exam: Present: warm, radial pulses palpable and symmetrical. Absent : calf tenderness, cyanotic, pedal edema - Neurological Exam Neurological exam: Present: CN II-XII intact, oriented X3, no focal deficits. Absent: pronater drift, facial droop, speech deficit - Skin Skin exam: Present: dry, intact - Patient Status Disposition: Home, Self-Care Condition: Fair Functional capacity at discharge: independent ambulation Overall status at discharge: patient is back to baseline - Discharge Instructions Instructions: Chest Pain (DC) Follow Up With: Paresh Ceron MD [Primary Care Provider] - 11/12/17 10:30 am - Diet and Activity Activity: resume usual activities as tolerated Diet: low fat, low cholesterol
--- NOTE | 2017-11-13 15:18 | Electrocardiograph Report ---
[address] [place], [place] [address] Test Date: 2017-11-11 Pat Name: Mili Yo Department: 113 Room: 3B24 Gender: Parachute Supervisor: : 1935 Requested By: Abby Bauman Order Number: [id number] Reading MD: Mart Merida Measurements Intervals [place] Rate: 73 P: 74 NE: 264 QRS: 34 QRSD: 104 T: 44 QT: 409 QTc: 435 Interpretive Statements SINUS RHYTHM WITH FIRST DEGREE AV BLOCK Electronically Signed On 11-13-2017 15:16:47 EDT by Mart Merida
--- NOTE | 2017-11-13 15:33 | Electrocardiograph Report ---
[address] [place] [address] Test Date: 2017-11-12 Pat Name: Mili Yo Department: 113 Room: 3B24 Gender: F Bed Control Specialist: : 1935 Requested By: Abby Bauman Order Number: [id number] Reading MD: Mart Merida Measurements Intervals [place] Rate: 76 P: 72 [place]: 276 QRS: 21 QRSD: 92 T: 40 QT: 386 QTc: 416 Interpretive Statements SINUS RHYTHM WITH FIRST DEGREE AV BLOCK PROBABLE INFERIOR MYOCARDIAL INFARCTION, PROBABLY OLD Electronically Signed On 11-13-2017 15:32:12 EDT by Mart Merida
== END 2017-11-12 17:39 | disposition home or self-care (01) ==
LOC: EMEROOARM 03:46 → 3BNU 03:46
PROVIDERS: ADMIT Family Medicine; ATTEND Family Medicine

== ENCOUNTER 2018-01-06 16:14 | Inpatient (IN) ==
[2018-01-06 16:54] LABS: Basophils # 0.1 K/mcL (0.0-0.2); Basophils % 0.7 %; Eosinophils # 0.3 K/mcL (0.0-0.6); Eosinophils % 2.6 %; Hematocrit 45.7 % (35.3-44.9); Hemoglobin 14.5 g/dL (11.5-15.4); Lymphocytes % 25.3 %; Mean Corpuscular HGB Conc 31.7 g/dL (31.6-35.5); Mean Corpuscular Hemoglobin 28.9 pg (28.0-33.3); Mean Corpuscular Volume 91.2 fL (83.0-100.0); Mean Platelet Volume 9.5 fL (9.4-12.4); Monocytes # 0.9 K/mcL (0.0-1.3); Monocytes % 7.4 %; Neutrophils # 7.5 K/mcL (1.6-8.9); Platelet Count 322 K/mcL (140-400); Red Blood Count 5.01 M/mcL (3.82-4.97); Red Cell Distribution Width 12.3 % (11.5-14.5)
[2018-01-06 17:00] LABS: INR 0.9; Prothrombin Time 10.3 Seconds (9.4-12.1)
[2018-01-06 17:05] LABS: BUN/Creatinine Ratio 20 (6-26); Blood Urea Nitrogen 24 mg/dL (8-23); Calcium 9.5 mg/dL (8.6-10.3); Carbon Dioxide 30 mEq/L (23-29); Chloride 96 mEq/L (98-107); Glucose 281 mg/dL (70-105); Osmolality,Calculated 298 (280-300); Potassium 4.2 mEq/L (3.5-5.1); Sodium 137 mEq/L (136-145); eGFR For Non-African Americans 44 (> 60)
[2018-01-06 17:06] LABS: Troponin I < 0.03 ng/mL (< 0.04)
--- NOTE | 2018-01-06 18:03 | Emergency Department Note ---
Disposition Clinical Impression: Lower extremity edema, Diastolic CHF Disposition: Still a Patient Referrals: Paresh Ceron MD [Primary Care Provider] - Forms: ED Satisfaction Letter Extremity Problem HPI - General Chief complaint: ED Extremity Problem,Nontraumatic Stated complaint: Leg swelling/blisters Time Seen by Provider: 01/06/18 16:24 Source: patient Mode of arrival: wheelchair Limitations: no limitations Nursing Notes Reviewed: Yes Vital Signs Reviewed: Yes - History of Present Illness HPI Narrative: Patient presents to the ED with the chief complaint of bilateral lower STEMI swelling. Patient states that she has a history of swelling. She denies any history of congestive heart failure. States that she does take Lasix every day. Since that she weighed 202 yesterday and weighed herself today and she weighed 214. She denies any fever, chills. She is having some chest discomfort that she describes as a heaviness in her central chest. Is also having fairly significant exertional dyspnea . States she cannot really get up and walk around my usual. Denies any abdominal pain. Pain Scale: 0 - Related Data Home Medications Medication Instructions Recorded Confirmed Acetaminophen [Tylenol] 650 mg PO Q6HR PRN 11/02/17 12/21/17 Aspirin [Lo-Dose Aspirin EC] 81 mg PO DAILY 11/02/17 12/21/17 Atorvastatin [Lipitor] 40 mg PO HS 11/02/17 12/21/17 Calcifediol [Rayaldee] 30 mcg PO HS 11/02/17 12/21/17 Levothyroxine [Synthroid] 25 mcg PO 0630 11/02/17 12/21/17 [place]-3 Fatty Acids [Fish Oil] 1,200 mg PO DAILY 11/02/17 12/21/17 PHENobarbital [Phenobarbital] 15 mg PO BID 11/02/17 12/21/17 carBAMazepine [Tegretol] 200 mg PO QID 11/02/17 12/21/17 Allopurinol [Zyloprim 100 MG] 100 mg PO DAILY 12/21/17 12/21/17 Cetirizine HCl [Zyrtec] 10 mg PO DAILY 12/21/17 12/21/17 Furosemide [Lasix] 40 mg PO DAILY 12/21/17 12/21/17 Allergies Allergy/AdvReac Type Severity Reaction Status Date / Time codeine Allergy Anaphylaxis Verified 08/09/18 08:25 diphenhydramine Allergy Hives Verified 11/02/17 08:25 [From Benadryl] morphine Allergy Anaphylaxis Verified 11/02/17 08:25 perfume Allergy Rash Verified 11/02/17 08:25 IV contrast Allergy Anaphylaxis Uncoded 11/02/17 08:25 Review of Systems: As reviewed in the HPI. All other systems reviewed are negative or normal. Past Medical History - Past Medical History Attestation: Yes The following information was validated with the patient. Source: patient, old records reviewed Medical history: Reports: CHF, hyperlipidemia, hypertension, renal disease, seizures, thyroid disease, other Surgical history: Reports: appendectomy, hysterectomy Psychiatric history: Reports: no psych history - Social History Smoking Status: Never smoker Smokeless Tobacco Status: No Alcohol use: Reports: none Drug use: Reports: none Physical Exam CONSTITUTIONAL: [chronically ill appearing, alert and in no acute distress] EYES: [EOMI, clear conjunctiva, PERRLA] HENT: [Normocephalic, atraumatic, moist mucus membranes, normal oropharynx] NECK: [normal inspection, full ROM, trachea midline, no obvious swelling] PULMONARY: [normal lung sounds bilaterally but decreased in b/l bases, normal chest rise and fall, no respiratory distress or stridor, no wheezes, no rales, no rhonchi CARDIOVASCULAR: [regular rate, regular rhythm, normal heart sounds, no murmurs, distal extremities are warm and well perfused] GASTROINSTESTINAL: [soft, non-tender, non-rigid, non-distended, no guarding, no rebound, normal bowel sounds] GENITOURINARY/RECTAL: [deferred] NEUROLOGIC: [Alert, oriented x3, normal speech, moves all extremities] EXTREMITIES: [Normal inspection, full ROM, no tenderness, 5+ pedal edema, normal capillary refill] MUSCULOSKELETAL: [no gross deformities, atraumatic] SKIN: [No cyanosis, no diaphoresis, normal color, warm, superficial blisters and leaking from legs b/l ] PSYCHIATRIC: [normal mood and affect] - General Limitations: no limitations General appearance: alert Course Course Narrative: patient with likely CHF. Will get labs, DVT US of BLE and admit. - Reevaluation(s) Reevaluation #1: Awaiting DVT ultrasound. Will sign out to the nighttime team pending these results and will admit for CHF exacerbation and IV diuresis. Vital Signs Temperature 98.0 F 01/06/18 16:16 Pulse Rate 97 01/06/18 16:16 Respiratory Rate 18 01/06/18 16:16 Blood Pressure 158/74 01/06/18 16:16 O2 Sat by Pulse Oximetry 94 01/06/18 16:16 Temperature 98.0 F 01/06/18 16:25 Pulse Rate 90 01/06/18 18:18 Respiratory Rate 20 01/06/18 18:18 Blood Pressure 142/67 01/06/18 18:18 O2 Sat by Pulse Oximetry 98 01/06/18 18:18 Oxygen Delivery Oxygen Delivery Room Air Extremity Problem, Nontraumati - Lab Data Result diagrams: 01/06/18 16:34 01/06/18 16:34 Lab Results 01/06/18 01/06/18 01/06/18 Range/Units 16:34 16:34 16:34 WBC 11.8 H (4.3-11.1) K/mcL RBC 5.01 H (3.82-4.97) M/mcL Hgb 14.5 (11.5-15.4) g/dL Hct 45.7 H (35.3-44.9) % MCV 91.2 (83.0-100.0) fL MCH 28.9 (28.0-33.3) pg MCHC 31.7 (31.6-35.5) g/dL RDW 12.3 (11.5-14.5) % Plt Count 322 (140-400) K/mcL MPV 9.5 (9.4-12.4) fL Immature Gran % 1.0 (0-4) % Seg Neutrophils % 63.0 % Lymphocytes % 25.3 % Monocytes % 7.4 % Eosinophils % 2.6 % Basophils % 0.7 % Neutrophils # 7.5 (1.6-8.9) K/mcL Lymphocytes # 3.0 (0.6-4.6) K/mcL Monocytes # 0.9 (0.0-1.3) K/mcL Eosinophils # 0.3 (0.0-0.6) K/mcL Basophils # 0.1 (0.0-0.2) K/mcL PT 10.3 (9.4-12.1) Seconds INR 0.9 Sodium 137 (136-145) mEq/L Potassium 4.2 (3.5-5.1) mEq/L Chloride 96 L (98-107) mEq/L Carbon Dioxide 30 H (23-29) mEq/L BUN 24 H (8-23) mg/dL Creatinine 1.18 (0.60-1.20) mg/dL Est GFR ( Amer) 53 L (> 60) Est GFR (Non-Af Amer) 44 L (> 60) BUN/Creatinine Ratio 20 (6-26) Glucose 281 H (70-105) mg/dL Calculated Osmolality 298 (280-300) Calcium 9.5 (8.6-10.3) mg/dL Troponin I < 0.03 (< 0.04) ng/mL B-Natriuretic Peptide (Less than 100) pg/mL 01/06/18 Range/Units 16:34 WBC (4.3-11.1) K/mcL RBC (3.82-4.97) M/mcL Hgb (11.5-15.4) g/dL Hct (35.3-44.9) % MCV (83.0-100.0) fL MCH (28.0-33.3) pg MCHC (31.6-35.5) g/dL RDW (11.5-14.5) % Plt Count (140-400) K/mcL MPV (9.4-12.4) fL Immature Gran % (0-4) % Seg Neutrophils % % Lymphocytes % % Monocytes % % Eosinophils % % Basophils % % Neutrophils # (1.6-8.9) K/mcL Lymphocytes # (0.6-4.6) K/mcL Monocytes # (0.0-1.3) K/mcL Eosinophils # (0.0-0.6) K/mcL Basophils # (0.0-0.2) K/mcL PT (9.4-12.1) Seconds INR Sodium (136-145) mEq/L Potassium (3.5-5.1) mEq/L Chloride (98-107) mEq/L Carbon Dioxide (23-29) mEq/L BUN (8-23) mg/dL Creatinine (0.60-1.20) mg/dL Est GFR ( Amer) (> 60) Est GFR (Non-Af Amer) (> 60) BUN/Creatinine Ratio (6-26) Glucose (70-105) mg/dL Calculated Osmolality (280-300) Calcium (8.6-10.3) mg/dL Troponin I (< 0.04) ng/mL B-Natriuretic Peptide 44 (Less than 100) pg/mL Attestation Statement - Attestation Attestation: I examined this patient and my medical decision-making was reviewed with the Resident Physician, Dr. Barry. I agree with the documented findings, disposition and treatment plan as described except to the extent set forth below. Patient is 82-year-old white female who presents to Emergency department today with complaints of bilateral lower cavity edema over the last 24-36 hours. Patient states she has never had edema this severe and she is been experiencing also some chest tightness and shortness of breath. Patient's having no respiratory distress or hypoxia. Patient states she has had almost a 20 pound weight gain in the last few days with fluid retention. Patient does have a history of CHF. Patient denies any current chest heaviness or pressure, she denies any diaphoresis no lightheadedness or syncope. I agree with patient's physical exam findings as documented. Vital signs are stable patient's resting comfortable he no acute distress. Agents EKG shows a normal sinus rhythm without acute ischemia. Patient underwent lab evaluation which shows a normal BMP that some pulmonary vascular congestion on chest x-ray and significant bilateral pitting edema. Patient's undergoing bilateral lower shimmy venous Dopplers. These are pending at this time. Patient will be signed out to Dr. Ortega the machine set up team for follow-up on any remaining labs, ultrasound and final disposition.
--- NOTE | 2018-01-06 19:02 | Emergency Department Note ---
Disposition Clinical Impression: Lower extremity edema, Hyperglycemia Diastolic CHF Qualifiers: Heart failure chronicity: unspecified Qualified Code(s): I50.30 - Unspecified diastolic (congestive) heart failure Disposition: Admitted As Inpatient Condition: Fair Referrals: Paresh Ceron MD [Primary Care Provider] - Forms: ED Satisfaction Letter Time of Disposition: 19:54 General Adult HPI - General Chief complaint: ED Extremity Problem,Nontraumatic Stated complaint: Leg swelling/blisters Time Seen by Provider: 01/06/18 16:24 Source: patient Mode of arrival: wheelchair Limitations: no limitations - History of Present Illness HPI Narrative: Patient was signed out by the prior provider. Please see the recommendation for complete history and physical. Pain Scale: 0 - Related Data Home Medications Medication Instructions Recorded Confirmed Acetaminophen [Tylenol] 650 mg PO Q6HR PRN 11/02/17 12/21/17 Aspirin [Lo-Dose Aspirin EC] 81 mg PO DAILY 11/02/17 12/21/17 Atorvastatin [Lipitor] 40 mg PO HS 11/02/17 12/21/17 Calcifediol [Rayaldee] 30 mcg PO HS 11/02/17 12/21/17 Levothyroxine [Synthroid] 25 mcg PO 0630 11/02/17 12/21/17 [place]-3 Fatty Acids [Fish Oil] 1,200 mg PO DAILY 11/02/17 12/21/17 PHENobarbital [Phenobarbital] 15 mg PO BID 11/02/17 12/21/17 carBAMazepine [Tegretol] 200 mg PO QID 11/02/17 12/21/17 Allopurinol [Zyloprim 100 MG] 100 mg PO DAILY 12/21/17 12/21/17 Cetirizine HCl [Zyrtec] 10 mg PO DAILY 12/21/17 12/21/17 Furosemide [Lasix] 40 mg PO DAILY 12/21/17 12/21/17 Allergies Allergy/AdvReac Type Severity Reaction Status Date / Time codeine Allergy Anaphylaxis Verified 11/02/17 08:25 diphenhydramine Allergy Hives Verified 11/02/17 08:25 [From Benadryl] morphine Allergy Anaphylaxis Verified 11/02/17 08:25 perfume Allergy Rash Verified 11/02/17 08:25 IV contrast Allergy Anaphylaxis Uncoded 11/02/17 08:25 Past Medical History - Past Medical History Medical history: Reports: CHF, hyperlipidemia, hypertension, renal disease, seizures, thyroid disease, other Surgical history: Reports: appendectomy, hysterectomy Psychiatric history: Reports: no psych history - Social History Smoking Status: Never smoker Smokeless Tobacco Status: No Alcohol use: Reports: none Drug use: Reports: none Physical Exam - General Limitations: no limitations General appearance: alert Course - Reevaluation(s) Reevaluation #1: Patient seen and examined. Patient be admitted to the hospital service for congestive heart failure. Patient's agreeable with this plan of care. Time: 19:45 Vital Signs Temperature 98.0 F 01/06/18 16:16 Pulse Rate 97 01/06/18 16:16 Respiratory Rate 18 01/06/18 16:16 Blood Pressure 158/74 01/06/18 16:16 O2 Sat by Pulse Oximetry 94 01/06/18 16:16 Temperature 98.0 F 01/06/18 16:25 Pulse Rate 90 01/06/18 18:18 Respiratory Rate 20 01/06/18 18:18 Blood Pressure 142/67 01/06/18 18:18 O2 Sat by Pulse Oximetry 98 01/06/18 18:18 Oxygen Delivery Oxygen Delivery Room Air Medical Decision Making - MDM Narrative Medical decision making narrative: Patient was signed out by the prior provider. Briefly the patient's 82-year- old female who is being worked up for dyspnea as well as bilateral lower leg swelling. At the time of signout the patient was awaiting bilateral venous ultrasounds of the legs. Those have returned her normal. No evidence of DVT. Patient does have symmetric bilateral pitting edema. Patient chest x-ray also so some pulmonary vascular congestion. Patient will be admitted for congestive heart failure. Recent echo reviewed patient did have an EF of 65%. Patient's symptoms appear to be more exertional in nature. Spoke with her doctor who told her to go to the ED for evaluation. Patient was given aspirin as well as Lasix in the ED. - Lab Data Lab results reviewed: Yes I reviewed the patient's lab results. Result diagrams: 01/06/18 16:34 01/06/18 16:34 Lab Results 01/06/18 01/06/18 01/06/18 Range/Units 16:34 16:34 16:34 WBC 11.8 H (4.3-11.1) K/mcL RBC 5.01 H (3.82-4.97) M/mcL Hgb 14.5 (11.5-15.4) g/dL Hct 45.7 H (35.3-44.9) % MCV 91.2 (83.0-100.0) fL MCH 28.9 (28.0-33.3) pg MCHC 31.7 (31.6-35.5) g/dL RDW 12.3 (11.5-14.5) % Plt Count 322 (140-400) K/mcL MPV 9.5 (9.4-12.4) fL Immature Gran % 1.0 (0-4) % Seg Neutrophils % 63.0 % Lymphocytes % 25.3 % Monocytes % 7.4 % Eosinophils % 2.6 % Basophils % 0.7 % Neutrophils # 7.5 (1.6-8.9) K/mcL Lymphocytes # 3.0 (0.6-4.6) K/mcL Monocytes # 0.9 (0.0-1.3) K/mcL Eosinophils # 0.3 (0.0-0.6) K/mcL Basophils # 0.1 (0.0-0.2) K/mcL PT 10.3 (9.4-12.1) Seconds INR 0.9 Sodium 137 (136-145) mEq/L Potassium 4.2 (3.5-5.1) mEq/L Chloride 96 L (98-107) mEq/L Carbon Dioxide 30 H (23-29) mEq/L BUN 24 H (8-23) mg/dL Creatinine 1.18 (0.60-1.20) mg/dL Est GFR ( Amer) 53 L (> 60) Est GFR (Non-Af Amer) 44 L (> 60) BUN/Creatinine Ratio 20 (6-26) Glucose 281 H (70-105) mg/dL Calculated Osmolality 298 (280-300) Calcium 9.5 (8.6-10.3) mg/dL Troponin I < 0.03 (< 0.04) ng/mL B-Natriuretic Peptide (Less than 100) pg/mL 01/06/18 Range/Units 16:34 WBC (4.3-11.1) K/mcL RBC (3.82-4.97) M/mcL Hgb (11.5-15.4) g/dL Hct (35.3-44.9) % MCV (83.0-100.0) fL MCH (28.0-33.3) pg MCHC (31.6-35.5) g/dL RDW (11.5-14.5) % Plt Count (140-400) K/mcL MPV (9.4-12.4) fL Immature Gran % (0-4) % Seg Neutrophils % % Lymphocytes % % Monocytes % % Eosinophils % % Basophils % % Neutrophils # (1.6-8.9) K/mcL Lymphocytes # (0.6-4.6) K/mcL Monocytes # (0.0-1.3) K/mcL Eosinophils # (0.0-0.6) K/mcL Basophils # (0.0-0.2) K/mcL PT (9.4-12.1) Seconds INR Sodium (136-145) mEq/L Potassium (3.5-5.1) mEq/L Chloride (98-107) mEq/L Carbon Dioxide (23-29) mEq/L BUN (8-23) mg/dL Creatinine (0.60-1.20) mg/dL Est GFR ( Amer) (> 60) Est GFR (Non-Af Amer) (> 60) BUN/Creatinine Ratio (6-26) Glucose (70-105) mg/dL Calculated Osmolality (280-300) Calcium (8.6-10.3) mg/dL Troponin I (< 0.04) ng/mL B-Natriuretic Peptide 44 (Less than 100) pg/mL - Radiology Data Radiology results reviewed: Yes I reviewed the patient's radiology results. Chest X-Ray 01/06/18 16:41 IMPRESSION: Borderline pulmonary vascular congestion. Otherwise negative. D/ / Tree Ware MD / Tree Ware MD Interpreting Provider: Tree Ware MD S.B.A.R. - S.B.A.R. Situation: Demographics Background: Presenting Complaint Assessment: Vital Signs, Course and respsone to treatment, Patient/Family Expectation Recommendation: Barrier(s) to disposition, Recommendation based on pending studies, treatments, or consults Elen Report Given to: Hospitalist Elen Repor Time: 19:54
[2018-01-06] MEDS ORDERED: Furosemide 40 MG/4 ML VIAL IVP ONE (19:21)
[2018-01-06] MEDS ORDERED: Aspirin 325 MG TABLET PO ONE (19:43)
--- NOTE | 2018-01-06 20:03 | Emergency Department Note ---
Disposition Clinical Impression: Lower extremity edema, Hyperglycemia Diastolic CHF Qualifiers: Heart failure chronicity: unspecified Qualified Code(s): I50.30 - Unspecified diastolic (congestive) heart failure Disposition: Admitted As Inpatient Condition: Fair Referrals: Paresh Ceron MD [Primary Care Provider] - Forms: ED Satisfaction Letter General Adult HPI - General Chief complaint: ED Extremity Problem,Nontraumatic Stated complaint: Leg swelling/blisters Time Seen by Provider: 01/06/18 16:24 Source: patient Mode of arrival: wheelchair Limitations: no limitations Nursing Notes Reviewed: Yes Vital Signs Reviewed: Yes - History of Present Illness Pain Scale: 0 - Related Data Home Medications Medication Instructions Recorded Confirmed Acetaminophen [Tylenol] 650 mg PO Q6HR PRN 11/02/17 12/21/17 Aspirin [Lo-Dose Aspirin EC] 81 mg PO DAILY 11/02/17 12/21/17 Atorvastatin [Lipitor] 40 mg PO HS 11/02/17 12/21/17 Calcifediol [Rayaldee] 30 mcg PO HS 11/02/17 12/21/17 Levothyroxine [Synthroid] 25 mcg PO 0630 11/02/17 12/21/17 [place]-3 Fatty Acids [Fish Oil] 1,200 mg PO DAILY 11/02/17 12/21/17 PHENobarbital [Phenobarbital] 15 mg PO BID 11/02/17 12/21/17 carBAMazepine [Tegretol] 200 mg PO QID 11/02/17 12/21/17 Allopurinol [Zyloprim 100 MG] 100 mg PO DAILY 12/21/17 12/21/17 Cetirizine HCl [Zyrtec] 10 mg PO DAILY 12/21/17 12/21/17 Furosemide [Lasix] 40 mg PO DAILY 12/21/17 12/21/17 Allergies Allergy/AdvReac Type Severity Reaction Status Date / Time codeine Allergy Anaphylaxis Verified 11/02/17 08:25 diphenhydramine Allergy Hives Verified 11/02/17 08:25 [From Benadryl] morphine Allergy Anaphylaxis Verified 11/02/17 08:25 perfume Allergy Rash Verified 11/02/17 08:25 IV contrast Allergy Anaphylaxis Uncoded 11/02/17 08:25 Past Medical History - Past Medical History Medical history: Reports: CHF, hyperlipidemia, hypertension, renal disease, seizures, thyroid disease, other Surgical history: Reports: appendectomy, hysterectomy Psychiatric history: Reports: no psych history - Social History Smoking Status: Never smoker Smokeless Tobacco Status: No Alcohol use: Reports: none Drug use: Reports: none Physical Exam - General Limitations: no limitations General appearance: alert Course Vital Signs Temperature 98.0 F 01/06/18 16:16 Pulse Rate 97 01/06/18 16:16 Respiratory Rate 18 01/06/18 16:16 Blood Pressure 158/74 01/06/18 16:16 O2 Sat by Pulse Oximetry 94 01/06/18 16:16 Temperature 98.0 F 01/06/18 16:25 Pulse Rate 90 01/06/18 18:18 Respiratory Rate 20 01/06/18 18:18 Blood Pressure 142/67 01/06/18 18:18 O2 Sat by Pulse Oximetry 98 01/06/18 18:18 Oxygen Delivery Oxygen Delivery Room Air Medical Decision Making - Medical Records Medical records reviewed: Yes I reviewed the patient's medical records. - Lab Data Lab results reviewed: Yes I reviewed the patient's lab results. Result diagrams: 01/06/18 16:34 01/06/18 16:34 Lab Results 01/06/18 01/06/18 01/06/18 Range/Units 16:34 16:34 16:34 WBC 11.8 H (4.3-11.1) K/mcL RBC 5.01 H (3.82-4.97) M/mcL Hgb 14.5 (11.5-15.4) g/dL Hct 45.7 H (35.3-44.9) % MCV 91.2 (83.0-100.0) fL MCH 28.9 (28.0-33.3) pg MCHC 31.7 (31.6-35.5) g/dL RDW 12.3 (11.5-14.5) % Plt Count 322 (140-400) K/mcL MPV 9.5 (9.4-12.4) fL Immature Gran % 1.0 (0-4) % Seg Neutrophils % 63.0 % Lymphocytes % 25.3 % Monocytes % 7.4 % Eosinophils % 2.6 % Basophils % 0.7 % Neutrophils # 7.5 (1.6-8.9) K/mcL Lymphocytes # 3.0 (0.6-4.6) K/mcL Monocytes # 0.9 (0.0-1.3) K/mcL Eosinophils # 0.3 (0.0-0.6) K/mcL Basophils # 0.1 (0.0-0.2) K/mcL PT 10.3 (9.4-12.1) Seconds INR 0.9 Sodium 137 (136-145) mEq/L Potassium 4.2 (3.5-5.1) mEq/L Chloride 96 L (98-107) mEq/L Carbon Dioxide 30 H (23-29) mEq/L BUN 24 H (8-23) mg/dL Creatinine 1.18 (0.60-1.20) mg/dL Est GFR ( Amer) 53 L (> 60) Est GFR (Non-Af Amer) 44 L (> 60) BUN/Creatinine Ratio 20 (6-26) Glucose 281 H (70-105) mg/dL Calculated Osmolality 298 (280-300) Calcium 9.5 (8.6-10.3) mg/dL Troponin I < 0.03 (< 0.04) ng/mL B-Natriuretic Peptide (Less than 100) pg/mL 01/06/18 Range/Units 16:34 WBC (4.3-11.1) K/mcL RBC (3.82-4.97) M/mcL Hgb (11.5-15.4) g/dL Hct (35.3-44.9) % MCV (83.0-100.0) fL MCH (28.0-33.3) pg MCHC (31.6-35.5) g/dL RDW (11.5-14.5) % Plt Count (140-400) K/mcL MPV (9.4-12.4) fL Immature Gran % (0-4) % Seg Neutrophils % % Lymphocytes % % Monocytes % % Eosinophils % % Basophils % % Neutrophils # (1.6-8.9) K/mcL Lymphocytes # (0.6-4.6) K/mcL Monocytes # (0.0-1.3) K/mcL Eosinophils # (0.0-0.6) K/mcL Basophils # (0.0-0.2) K/mcL PT (9.4-12.1) Seconds INR Sodium (136-145) mEq/L Potassium (3.5-5.1) mEq/L Chloride (98-107) mEq/L Carbon Dioxide (23-29) mEq/L BUN (8-23) mg/dL Creatinine (0.60-1.20) mg/dL Est GFR ( Amer) (> 60) Est GFR (Non-Af Amer) (> 60) BUN/Creatinine Ratio (6-26) Glucose (70-105) mg/dL Calculated Osmolality (280-300) Calcium (8.6-10.3) mg/dL Troponin I (< 0.04) ng/mL B-Natriuretic Peptide 44 (Less than 100) pg/mL - Radiology Data Radiology results reviewed: Yes I reviewed the patient's radiology results. Chest X-Ray 01/06/18 16:41 IMPRESSION: Borderline pulmonary vascular congestion. Otherwise negative. D/ / Tree Ware MD / Tree Ware MD Interpreting Provider: Tree Ware MD Attestation Statement - Attestation Attestation: I, Scott Conklin MD, personally evaluated this patient and discussed their management with the resident physician. I reviewed the resident's note and agree with the documented findings, medical decision making, and plan of care. This patient was signed out at shift change from Dr. Homer Barry and Dr. Goldy Cherry. Please refer to their notes for complete details of the history and physical examination. At shift change patient is just awaiting a Doppler ultrasound the lower extremities to rule out DVT prior to admission for fluid overload. Patient complains of increased swelling of her extremities over the past 3 days and increased weight gain. Some mild shortness breath with exertion. No chest pain. On examination patient is a well-developed obese elderly female in no acute distress. She is alert and oriented 3. There is no cyanosis or diaphoresis. She does have 3+ pedal edema of the lower extremities bilaterally with some fluid-filled blisters but no weeping. Doppler ultrasound was negative for DVT. The hospitalist, Dr. Manzo, was consulted and accepted admission of the patient.
[2018-01-06] MEDS ORDERED: Naloxone 0.4 MG/ML INJ IVP PRN (20:21)
[2018-01-06] MEDS ORDERED: PHENobarbital 15 MG TABLET PO SCH (21:00)
[2018-01-06] MEDS ORDERED: *HR* Labetalol 20 MG/4 ML SYRINGE IVP ONE (21:21)
--- NOTE | 2018-01-06 22:13 | Internal Med History&Physical ---
<AnaisAkin - Last Filed: 01/06/18 22:17> Date of Encounter: 01/06/18 Internal Medicine - H&P: Meds Acetaminophen [Tylenol] 650 mg PO Q6HR PRN 11/02/17 [History] Aspirin [Lo-Dose Aspirin EC] 81 mg PO DAILY 11/02/17 [History] Atorvastatin [Lipitor] 40 mg PO HS 11/02/17 [History] Calcifediol [Rayaldee] 30 mcg PO HS 11/02/17 [History] Levothyroxine [Synthroid] 25 mcg PO 0630 11/02/17 [History] Han[place]-3 Fatty Acids [Fish Oil] 1,200 mg PO DAILY 11/02/17 [History] PHENobarbital [Phenobarbital] 15 mg PO BID 11/02/17 [History] carBAMazepine [Tegretol] 200 mg PO QID 11/02/17 [History] Allopurinol [Zyloprim 100 MG] 100 mg PO DAILY 12/21/17 [History] Cetirizine HCl [Zyrtec] 10 mg PO DAILY 12/21/17 [History] Furosemide [Lasix] 40 mg PO DAILY 12/21/17 [History] 3 Allergy/AdvReac Type Severity Reaction Status Date / Time codeine Allergy Anaphylaxis Verified 11/02/17 08:25 diphenhydramine Allergy Hives Verified 11/02/17 08:25 [From Benadryl] morphine Allergy Anaphylaxis Verified 11/02/17 08:25 perfume Allergy Rash Verified 11/02/17 08:25 IV contrast Allergy Anaphylaxis Uncoded 11/02/17 08:25 All Systems PM: A 10-system review of systems was performed and is negative for pertinent findings except as documented above in the HPI. - Constitutional Vitals: Temp Pulse Resp BP Pulse Ox 98.3 F 103 18 178/89 95 01/06/18 21:08 01/06/18 21:08 01/06/18 21:08 01/06/18 21:08 01/06/18 21:08 Internal Med - H&P Results - Labs CBC & Chem 7: 01/06/18 16:34 01/06/18 16:34 - Time Spent With Patient Total time spent is greater than 50% in coordination of care (as documented) at patient's floor/unit and/or counseling patient: - Attending Attestation Mili Barreto Nubia Yo is an 82 year old woman with a history of diastolic dysfunction, hypertension, hypothyroidism, temporal lobe epilepsy and sick sinus syndrome s/p PPM insertion 2 weeks ago who presented to the ER with the complaint of bilateral lower extremity swelling. She states that she has a longstanding history of edema with stasis ulcer however over the last few days she has gained 10lbs. She denied having chest pain or dyspnea over her baseline. Dopplers were done and ruled out DVT. She was given 40mg IVP furosemide and is admitted for further observation. At this time she reports no other issues and feels well. On my assessment she was sitting up in bed eating salty crackers with soup. She denies a smoking history. Prior hx of hysterectomy. Mother w/ ovarian Ca. All systems reviewed and negative except as listed above in the HPI. Vitals reviewed and remarkable for elevated BP. NAD. AAOx3. Short, thick neck w/ o JVD. No LAD. MMM. EOMI. Reduced thoracic expansion with decreased breath sounds bilaterally due to adiposity. Systolic murmur at LUSB. Abdomen soft and non-tender. 3+ pitting edema of both lower legs with erythematous, warm skin changes associated with mild blistering on both shins. No cyanosis. No focal deficits. Affect appropriate. Labs reviewed showing mild increase in Cr to 1.18 from 0.9, Cl 96. BNP 44 and negative trop. Rest of labs grossly wnl. CXR reviewed independently by me shows mild pulmonary vascular congestion and LVH. Pacemaker in situ. Will admit for obs for possible acute on chronic diastolic heart failure requiring intravenous diuresis, low salt diet and fluid restriction. Uncontrolled HTN. Mild cellulitis overlying her chronic stasis changes and can start amoxicillin 500mg TID for 5-7 days. Will ensure meds don't interact with AEDs. Wound care needed to address blisters. Continue allopurinol for gout, levothyroxine for hypothyroid. DVT prophylaxis. JEANNETTE CARCAMO. <Erika Ferraro - Last Filed: 01/07/18 01:55> Date of Encounter: 01/07/18 Time of Encounter: 22:13 Internal Medicine - H&P: HPI Chief complaint: lower extremity swelling Admitted From: Home Plans for Post Hospital Care: Home History of present illness: Ms. Yo is a 82 year old female with PMH diastolic CHF, s/p permanent pacemaker (sick sinus syndrome), CKD, HTN, epilepsy, and gout presents to ED for c/o BLE swelling. Her LE edema has worsened throughout the day, but has been above baseline x 3 days and reports > 10 lb weight gain over 24 hours. She reports faithfully taking 40 mg lasix daily. Recent med changes include addition of allopurinol for gout and 5-day prednisone course. She completed the steroid course 2-3 days ago. Fluid-filled blisters have appeared on legs in addition to the swelling. She denies fever, chills, nausea, vomiting, chest pain or pressure, ARNOLD, coughing, wheezing, abdominal pain, diarrhea, constipation, or difficulty urinating. Last echo 10/30/17 shows LVEF 65% with mild LV diastolic dysfunction. ED Course: Afebrile and hemodynamically stable, oxygen saturation 94% on room air. EKG shows no acute ischemic changes and is NSR. CXR shows mild pulmonary vascular congestion. Preliminary BLE doppler negative for DVT and SVT. Negative troponin , BNP 44, glucose 281--metabolic panel otherwise unremarkable. She received 325mg ASA and 40mg furosemide IVP. Past Med Surg Social Fam HX - Past Medical History Medical history: CHF, hyperlipidemia, hypertension, renal disease, seizures, thyroid disease, TIA, other Additional medical history: epilepsy Psychiatric history: no psych history - Past Surgical History Surgical History: appendectomy, breast surgery, hysterectomy, pacemaker/AICD Additional surgical history: lumpectomy, right ankle sx, left should sx with plates, - Social History Smoking Status: Never smoker Smokeless Tobacco Status: No Alcohol use: none Drug use: none - Family History Mother Living Status: Hx Family Cancer: Yes (ovarian) Hx Family Endocrine Disorder: Yes (diabetes) Father Living Status: Hx Family Cancer: Yes Sister Living Status: Hx Family Cardiac Disorders: Yes (CHF) Hx Family Endocrine Disorder: Yes (diabetes) All Systems PM: A 10-system review of systems was performed and is negative for pertinent findings except as documented above in the HPI. - Constitutional Constitutional: as per HPI - Cardiovascular Cardiovascular ROS IM: as per HPI, no irregular heart rhythm, no lightheadedness , no palpitations - Respiratory Respiratory: as per HPI - Gastrointestinal Gastrointestinal: as per HPI - Genitourinary Genitourinary: as per HPI - Musculoskeletal Musculoskeletal ROS IM: as per HPI - Integumentary Integumentary IM: as per HPI - Neurological Neurological ROS: no dizziness - Constitutional Vitals: Temp Pulse Resp BP Pulse Ox 98.3 F 103 18 178/89 95 01/06/18 21:08 01/06/18 21:08 01/06/18 21:08 01/06/18 21:08 01/06/18 21:08 Exam: General: vital signs noted, no acute distress, non-toxic appearance, AAO x3 Head: normocephalic, atraumatic Eyes: EOMI, PERRL, sclera anicteric ENT: moist oral mucous membranes Neck: supple, short Cardio: distant heart sounds; RRR, no gallops or rubs, + S1/S2 Chest: symmetric chest rise Pulm: CTAB; no wheezes, rhonchi, or rales; diminished airflow, no respiratory distress Abd: soft, nontender, nondistended, normal bowel sounds Neuro: CN II-XII grossly intact; no focal deficits or speech deficit, moves all extremities spontaneously; mentating well Ext: BLE 3+ pitting edema to mid-ocasio; 2+/4 radial pulses equal bilaterally, warm, acyanotic, capillary refill < 2 sec, nontender to palpation MSK: no visible deformities, no joint swelling Psych: normal mood and affect, cooperative, answers questions appropriately, doesnt appear anxious or agitated Skin: BLE increased warmth and diffusely erythematous, intact, fluid-filled blisters, no mottling, no open wounds or purulent drainage Internal Med - H&P Results - Labs CBC & Chem 7: 01/06/18 16:34 01/06/18 16:34 - Assessment and plan (1) Lower extremity edema Current Visit: Yes Status: Acute Assessment and plan: Acute on chronic LE edema Likely multifactorial d/t acute on chronic diastolic CHF, recent steroid use, and non-adherence to low sodium diet BLE ultrasound preliminary report negative for DVT and SVT CXR shows mild pulmonary vascular congestion Elevate lower extremities Increase lasix to 40mg BID--continue to monitor SCr (2) MARISELA (acute kidney injury) Current Visit: Yes Status: Acute Assessment and plan: SCr on arrival 1.18, baseline around 0.95-0.99 Possible etiology intravascular fluid depletion vs poor perfusion to kidneys Trend SCr Renal dosing, avoidance of nephrotoxic meds (3) Cellulitis of both lower extremities Current Visit: Yes Status: Suspected Assessment and plan: Suspected Diffuse, non-purulent bilateral lower leg erythema and warmth up to mid-ocasio Amoxicillin 500mg PO BID x 5-7days (4) Diastolic CHF Current Visit: Yes Status: Chronic Assessment and plan: Echo LVEF 60% with mild LV diastolic dysfunction, non-valvular CXR shows mild pulmonary vascular congestion, otherwise negative Increase lasix to 40mg BID Qualifiers: Heart failure chronicity: unspecified Qualified Code(s): I50.30 - Unspecified diastolic (congestive) heart failure (5) Hyperglycemia Current Visit: Yes Status: Acute Assessment and plan: Glucose on arrival 281 No h/o of DM on review of records, but will check Hgb A1c (6) S/P cardiac pacemaker procedure Current Visit: No Status: Acute Assessment and plan: Permanent pacemaker placed 12/21/17 due to sick sinus syndrome (7) Epilepsy Current Visit: Yes Status: Chronic Assessment and plan: Continue home dose phenobarbital and carbamazepine Phenobarbital must be in elixir form, tablets cause GI hemorrhage per patient Qualifiers: Epilepsy type: unspecified Intractability: not intractable Status epilepticus: without status epilepticus Qualified Code(s): G40.909 - Epilepsy , unspecified, not intractable, without status epilepticus (8) Hypothyroid Current Visit: Yes Status: Chronic Assessment and plan: Continue home dose synthroid Qualifiers: Hypothyroidism type: acquired Qualified Code(s): E03.9 - Hypothyroidism, unspecified (9) HTN (hypertension) Current Visit: No Status: Chronic Qualifiers: Hypertension type: essential hypertension Qualified Code(s): I10 - Essential (primary) hypertension (10) HLD (hyperlipidemia) Current Visit: No Status: Chronic Qualifiers: Hyperlipidemia type: mixed hyperlipidemia Qualified Code(s): E78.2 - Mixed hyperlipidemia (11) DVT prophylaxis Current Visit: Yes Status: Acute Assessment and plan: Heparin 5,000 units SubQ Q8H - Time Spent With Patient Total time spent is greater than 50% in coordination of care (as documented) at patient's floor/unit and/or counseling patient: 25 - 35 minutes
[2018-01-06] MEDS: carBAMazepine 200 MG TABLET PO SCH (22:38)
[2018-01-07] MEDS: Amoxicillin 500 MG CAPSULE PO SCH ×4 (00:34→20:34)
[2018-01-07] MEDS: *HR* Heparin 5,000 UNIT/ML VIAL SQ SCH ×4 (00:35→20:34)
[2018-01-07] MEDS: Acetaminophen 325 MG TABLET PO PRN (03:53)
[2018-01-07 04:51] LABS: Basophils # 0.1 K/mcL (0.0-0.2); Basophils % 0.6 %; Eosinophils # 0.2 K/mcL (0.0-0.6); Eosinophils % 2.5 %; Hematocrit 41.2 % (35.3-44.9); Hemoglobin 13.1 g/dL (11.5-15.4); Immature Granulocytes % 1.5 % (0-4); Lymphocytes # 2.3 K/mcL (0.6-4.6); Lymphocytes % 25.1 %; Mean Corpuscular HGB Conc 31.8 g/dL (31.6-35.5); Mean Corpuscular Hemoglobin 28.8 pg (28.0-33.3); Mean Corpuscular Volume 90.5 fL (83.0-100.0); Mean Platelet Volume 9.7 fL (9.4-12.4); Monocytes # 0.9 K/mcL (0.0-1.3); Monocytes % 9.2 %; Neutrophils # 5.7 K/mcL (1.6-8.9); Platelet Count 275 K/mcL (140-400); Red Blood Count 4.55 M/mcL (3.82-4.97); Red Cell Distribution Width 12.2 % (11.5-14.5); Segmented Neutrophils % 61.1 %
[2018-01-07 05:04] LABS: Calcium 8.9 mg/dL (8.6-10.3); Potassium 4.5 mEq/L (3.5-5.1)
[2018-01-07] MEDS: Levothyroxine 25 MCG TABLET PO SCH (05:57)
[2018-01-07] MEDS ORDERED: *HR* Labetalol 20 MG/4 ML SYRINGE IVP PRN (09:08)
--- NOTE | 2018-01-07 09:21 | Internal Med Progress Note ---
Hospitalist Progress Note - Encounter Date of Encounter: 01/07/18 Time of Encounter: 09:19 - Subjective Interval History: No acute events. No complaints. - Exam Vitals: Temp Pulse Resp BP Pulse Ox 98.1 F 90 16 127/70 92 01/07/18 07:04 01/07/18 07:04 01/07/18 07:04 01/07/18 07:04 01/07/18 07:04 Exam: General: vital signs noted, no acute distress, non-toxic appearance, AAO x3 Eyes: EOMI, PERRL, sclera anicteric ENT: moist oral mucous membranes Neck: supple, short Cardio: distant heart sounds; RRR, no gallops or rubs, + S1/S2 Chest: symmetric chest rise Pulm: CTAB; no wheezes, rhonchi, or rales; diminished airflow, no respiratory distress Abd: soft, nontender, nondistended, normal bowel sounds Neuro: CN II-XII grossly intact; no focal deficits or speech deficit, moves all extremities spontaneously; mentating well Ext: BLE 3+ pitting edema to mid-ocasio; 2+/4 radial pulses equal bilaterally, warm, acyanotic, capillary refill < 2 sec. MSK: no visible deformities, no joint swelling Skin: BLE increased warmth and diffusely erythematous, intact, fluid-filled blisters, no mottling, no open wounds or purulent drainage - Assessment and Plan (1) Cellulitis of both lower extremities Current Visit: Yes Status: Suspected Assessment and Plan: Suspected Diffuse, non-purulent bilateral lower leg erythema and warmth up to mid-ocasio Amoxicillin 500mg PO BID x 5-7days (2) MARISELA (acute kidney injury) Current Visit: Yes Status: Acute Assessment and Plan: SCr on arrival 1.18, baseline around 0.95-0.99 Possible etiology intravascular fluid depletion vs poor perfusion to kidneys Trend SCr Renal dosing, avoidance of nephrotoxic meds Recheck in AM, needs close monitoring while on Lasix (3) Diastolic CHF Current Visit: Yes Status: Chronic Assessment and Plan: Echo LVEF 60% with mild LV diastolic dysfunction, non-valvular CXR shows mild pulmonary vascular congestion, otherwise negative Increase lasix to 40mg BID IV (4) Epilepsy Current Visit: Yes Status: Chronic Assessment and Plan: Continue home dose phenobarbital and carbamazepine Phenobarbital must be in elixir form, tablets cause GI hemorrhage per patient (5) HTN (hypertension) Current Visit: No Status: Chronic Assessment and Plan: Doesn't appear she is on home medications for this. Start labetolol IV prn. (6) Hypothyroid Current Visit: Yes Status: Chronic Assessment and Plan: Continue home dose synthroidd (7) HLD (hyperlipidemia) Current Visit: No Status: Chronic (8) S/P cardiac pacemaker procedure Current Visit: No Status: Acute Assessment and Plan: Permanent pacemaker placed 12/21/17 due to sick sinus syndrome (9) Lower extremity edema Current Visit: Yes Status: Acute Assessment and Plan: Acute on chronic LE edema Likely multifactorial d/t acute on chronic diastolic CHF, recent steroid use, and non-adherence to low sodium diet BLE ultrasound preliminary report negative for DVT and SVT CXR shows mild pulmonary vascular congestion Elevate lower extremities Increase lasix to 40mg BID--continue to monitor SCr (10) Hyperglycemia Current Visit: Yes Status: Acute Assessment and Plan: Glucose on arrival 281 No h/o of DM on review of records, but will check Hgb A1c A1C pending. (11) DVT prophylaxis Current Visit: Yes Status: Acute Assessment and Plan: Heparin 5,000 units SubQ Q8H - Time Spent with Patient Total time spent is greater than 50% in coordination of care (as documented) at patient's floor/unit and/or counseling patient: Internal Medicine: Result - Labs CBC & Chem 7: 01/07/18 03:53 01/07/18 03:53 Labs: Short CBC 01/07/18 Range/Units 03:53 WBC 9.3 (4.3-11.1) K/mcL Hgb 13.1 (11.5-15.4) g/dL Hct 41.2 (35.3-44.9) % Plt Count 275 (140-400) K/mcL Neutrophils # 5.7 (1.6-8.9) K/mcL BMP 01/07/18 03:53 Sodium 138 Potassium 4.5 Chloride 99 Carbon Dioxide 31 H BUN 28 H Creatinine 1.17 Glucose 207 H Calcium 8.9 - ABG Interpretation ABG results: PT/INR, D-dimer PT 10.3 Seconds (9.4-12.1) 01/06/18 16:34 Consult Discharge Plan - Plan Referrals: Paresh Ceron MD [Primary Care Provider] - (3) Diastolic CHF Qualifiers: Heart failure chronicity: unspecified Qualified Code(s): I50.30 - Unspecified diastolic (congestive) heart failure (4) Epilepsy Qualifiers: Epilepsy type: unspecified Intractability: not intractable Status epilepticus: without status epilepticus Qualified Code(s): G40.909 - Epilepsy, unspecified, not intractable, without status epilepticus (5) HTN (hypertension) Qualifiers: Hypertension type: essential hypertension Qualified Code(s): I10 - Essential (primary) hypertension (6) Hypothyroid Qualifiers: Hypothyroidism type: acquired Qualified Code(s): E03.9 - Hypothyroidism, unspecified (7) HLD (hyperlipidemia) Qualifiers: Hyperlipidemia type: mixed hyperlipidemia Qualified Code(s): E78.2 - Mixed hyperlipidemia
[2018-01-07] MEDS: Loratadine 10 MG TABLET PO SCH (10:52)
[2018-01-07] MEDS: carBAMazepine 200 MG TABLET PO SCH ×4 (10:52→20:33)
[2018-01-07] MEDS: Aspirin Enteric Coated 81 MG Tablet PO SCH (10:52)
[2018-01-07] MEDS: Furosemide 40 MG/4 ML VIAL IVP SCH ×2 (10:52→20:34)
[2018-01-07] MEDS: (Omega-3 Fatty Acids [Fish Oil] 1,200 MG) PO SCH (10:56)
[2018-01-08 04:30] LABS: Basophils # 0.1 K/mcL (0.0-0.2); Eosinophils # 0.4 K/mcL (0.0-0.6); Hematocrit 38.4 % (35.3-44.9); Hemoglobin 12.3 g/dL (11.5-15.4); Immature Granulocytes % 1.5 % (0-4); Lymphocytes # 3.3 K/mcL (0.6-4.6); Lymphocytes % 33.7 %; Mean Corpuscular Hemoglobin 29.1 pg (28.0-33.3); Mean Corpuscular Volume 90.8 fL (83.0-100.0); Monocytes # 0.8 K/mcL (0.0-1.3); Monocytes % 7.9 %; Neutrophils # 5.1 K/mcL (1.6-8.9); Platelet Count 257 K/mcL (140-400); Red Blood Count 4.23 M/mcL (3.82-4.97); Red Cell Distribution Width 12.2 % (11.5-14.5); Segmented Neutrophils % 51.9 %
[2018-01-08 04:47] LABS: Calcium 8.7 mg/dL (8.6-10.3); Potassium 4.3 mEq/L (3.5-5.1)
[2018-01-08] MEDS: *HR* Heparin 5,000 UNIT/ML VIAL SQ SCH ×3 (05:41→23:32)
[2018-01-08] MEDS: Levothyroxine 25 MCG TABLET PO SCH (05:41)
[2018-01-08] MEDS: Amoxicillin 500 MG CAPSULE PO SCH ×3 (09:54→23:31)
[2018-01-08] MEDS: Aspirin Enteric Coated 81 MG Tablet PO SCH (09:54)
[2018-01-08] MEDS: carBAMazepine 200 MG TABLET PO SCH ×4 (09:54→23:31)
[2018-01-08] MEDS: Loratadine 10 MG TABLET PO SCH (09:54)
[2018-01-08] MEDS: Furosemide 40 MG/4 ML VIAL IVP SCH (09:55)
--- NOTE | 2018-01-08 10:37 | Internal Med Progress Note ---
Hospitalist Progress Note - Encounter Date of Encounter: 01/08/18 Time of Encounter: 10:34 - Subjective Interval History: No acute events. No complaints. She states her leg edema is significantly improving. Some cough though with no acute dyspnea. She denies fevers/chills, n/v, abdominal pain. - Exam Vitals: Temp Pulse Resp BP Pulse Ox 97.9 F 74 15 112/61 94 01/08/18 06:38 01/08/18 06:38 01/08/18 06:38 01/08/18 06:38 01/08/18 06:38 Exam: General: vital signs noted, no acute distress, non-toxic appearance, AAO x3 Eyes: EOMI, PERRL, sclera anicteric ENT: moist oral mucous membranes Cardio: distant heart sounds; RRR, no gallops or rubs, + S1/S2 Pulm: CTAB; no wheezes, rhonchi, or rales; diminished airflow, no respiratory distress Abd: soft, nontender, nondistended, normal bowel sounds Neuro: CN II-XII grossly intact; no focal deficits or speech deficit Ext: Bipedal edema improved to 2+ equal today. There is still erythema of lower extremities with slight improvement. MSK: no visible deformities, no joint swelling Skin: BLE increased warmth and diffusely erythematous, intact, fluid-filled blisters, no mottling, no open wounds or purulent drainage - Assessment and Plan (1) Cellulitis of both lower extremities Current Visit: Yes Status: Suspected Assessment and Plan: Does show improvement with antibiotics and diuresis. Diffuse, non-purulent bilateral lower leg erythema and warmth up to mid-ocasio Amoxicillin 500mg PO BID x 5-7days (2) MARISELA (acute kidney injury) Current Visit: Yes Status: Acute Assessment and Plan: SCr on arrival 1.18, baseline around 0.95-0.99 Possible etiology intravascular fluid depletion vs poor perfusion to kidneys Trend SCr Renal dosing, avoidance of nephrotoxic meds Creatinine had slight increase today to 1.3. Currently on Lasix 40 mg IVB BID. Will hold the evening dose tonight and restart tomorrow at 20 mg IV BID. (3) Diastolic CHF Current Visit: Yes Status: Chronic Assessment and Plan: Echo LVEF 60% with mild LV diastolic dysfunction, non-valvular CXR shows mild pulmonary vascular congestion, otherwise negative Lasix was incresaed to 40 mg IV BID. She showed improvement. Will right now switch back to 20 mg IV BID because of serum creatinine had slight increase today. (4) Epilepsy Current Visit: Yes Status: Chronic Assessment and Plan: Continue home dose phenobarbital and carbamazepine Phenobarbital must be in elixir form, tablets cause GI hemorrhage per patient (5) HTN (hypertension) Current Visit: No Status: Chronic Assessment and Plan: Doesn't appear she is on home medications for this. Start labetolol IV prn. (6) Hypothyroid Current Visit: Yes Status: Chronic Assessment and Plan: Continue home dose synthroidd (7) HLD (hyperlipidemia) Current Visit: No Status: Chronic (8) S/P cardiac pacemaker procedure Current Visit: No Status: Acute Assessment and Plan: Permanent pacemaker placed 12/21/17 due to sick sinus syndrome Tylenol prn pain near insertion site. (9) Lower extremity edema Current Visit: Yes Status: Acute Assessment and Plan: Acute on chronic LE edema Likely multifactorial d/t acute on chronic diastolic CHF, recent steroid use, and non-adherence to low sodium diet, and cellulitis BLE ultrasound preliminary report negative for DVT and SVT CXR shows mild pulmonary vascular congestion Elevate lower extremities Will need to reduce Lasix to 20 mg IV BID today because of monitoring renal function (10) Hyperglycemia Current Visit: Yes Status: Acute Assessment and Plan: Glucose on arrival 281 No h/o of DM on review of records, but will check Hgb A1c Get A1C in AM (11) DVT prophylaxis Current Visit: Yes Status: Acute Assessment and Plan: Heparin 5,000 units SubQ Q8H - Time Spent with Patient Total time spent is greater than 50% in coordination of care (as documented) at patient's floor/unit and/or counseling patient: Internal Medicine: Result - Labs CBC & Chem 7: 01/08/18 03:50 01/08/18 03:50 Labs: Short CBC 01/08/18 Range/Units 03:50 WBC 9.9 (4.3-11.1) K/mcL Hgb 12.3 (11.5-15.4) g/dL Hct 38.4 (35.3-44.9) % Plt Count 257 (140-400) K/mcL Neutrophils # 5.1 (1.6-8.9) K/mcL BMP 01/08/18 03:50 Sodium 134 L Potassium 4.3 Chloride 96 L Carbon Dioxide 31 H BUN 33 H Creatinine 1.23 H Glucose 218 H Calcium 8.7 - ABG Interpretation ABG results: PT/INR, D-dimer PT 10.3 Seconds (9.4-12.1) 01/06/18 16:34 Consult Discharge Plan - Plan Referrals: Paresh Ceron MD [Primary Care Provider] - (3) Diastolic CHF Qualifiers: Heart failure chronicity: unspecified Qualified Code(s): I50.30 - Unspecified diastolic (congestive) heart failure (4) Epilepsy Qualifiers: Epilepsy type: unspecified Intractability: not intractable Status epilepticus: without status epilepticus Qualified Code(s): G40.909 - Epilepsy, unspecified, not intractable, without status epilepticus (5) HTN (hypertension) Qualifiers: Hypertension type: essential hypertension Qualified Code(s): I10 - Essential (primary) hypertension (6) Hypothyroid Qualifiers: Hypothyroidism type: acquired Qualified Code(s): E03.9 - Hypothyroidism, unspecified (7) HLD (hyperlipidemia) Qualifiers: Hyperlipidemia type: mixed hyperlipidemia Qualified Code(s): E78.2 - Mixed hyperlipidemia
--- NOTE | 2018-01-08 11:22 | Electrocardiograph Report ---
[address] [address] Test Date: 2018-01-06 Pat Name: Mili Yo Department: [id number] Room: 2NE19 Gender: F [employer] Technician: : 1935 Requested By: Rosa Fofana Order Number: [id number] Reading MD: Roseanna Braden Measurements Intervals Jerome Rate: 93 P: 201 MI: 260 QRS: 131 QRSD: 90 T: 3 QT: 354 QTc: 441 Interpretive Statements Sinus or ectopic atrial rhythm Atrial premature complex Prolonged MI interval Left posterior fascicular block Electronically Signed On 01-08-2018 11:21:01 EDT by Roseanna Braden
[2018-01-08] MEDS: (Omega-3 Fatty Acids [Fish Oil] 1,200 MG) PO SCH (14:48)
[2018-01-08] MEDS: Acetaminophen 325 MG TABLET PO PRN (23:31)
[2018-01-09 04:52] LABS: Basophils % 1.1 %; Eosinophils % 2.9 %; Hematocrit 36.8 % (35.3-44.9); Hemoglobin 11.9 g/dL (11.5-15.4); Immature Granulocytes % 1.8 % (0-4); Lymphocytes % 31.2 %; Mean Corpuscular HGB Conc 32.3 g/dL (31.6-35.5); Mean Corpuscular Volume 89.8 fL (83.0-100.0); Monocytes % 7.9 %; Platelet Count 267 K/mcL (140-400); Red Cell Distribution Width 12.2 % (11.5-14.5); Segmented Neutrophils % 55.1 %
[2018-01-09 04:53] LABS: Basophils # 0.1 K/mcL (0.0-0.2); Eosinophils # 0.3 K/mcL (0.0-0.6); Lymphocytes # 2.9 K/mcL (0.6-4.6); Monocytes # 0.7 K/mcL (0.0-1.3); Neutrophils # 5.2 K/mcL (1.6-8.9)
[2018-01-09] MEDS: Levothyroxine 25 MCG TABLET PO SCH (05:30)
[2018-01-09] MEDS: *HR* Heparin 5,000 UNIT/ML VIAL SQ SCH ×3 (05:30→20:46)
[2018-01-09] MEDS: Acetaminophen 325 MG TABLET PO PRN ×2 (05:32→23:34)
[2018-01-09 05:54] LABS: Estimated Average Glucose 154 mg/dl
[2018-01-09 06:06] LABS: Calcium 8.7 mg/dL (8.6-10.3); Potassium 4.3 mEq/L (3.5-5.1)
--- NOTE | 2018-01-09 07:50 | Internal Med Progress Note ---
Hospitalist Progress Note - Encounter Date of Encounter: 01/09/18 Time of Encounter: 11:30 - Subjective Interval History: No acute events. No complaints. She states her leg edema is significantly improving. She denies fevers/chills, n/v, abdominal pain. Overall feels much better. - Exam Vitals: Temp Pulse Resp BP Pulse Ox 98 F 78 17 146/76 95 01/09/18 04:00 01/09/18 04:00 01/09/18 04:00 01/09/18 04:00 01/09/18 04:00 Exam: General: vital signs noted, no acute distress, non-toxic appearance, AAO x3 Eyes: EOMI, PERRL, sclera anicteric ENT: moist oral mucous membranes Cardio: distant heart sounds; RRR, no gallops or rubs, + S1/S2 Pulm: CTAB; no wheezes, rhonchi, or rales; diminished airflow, no respiratory distress Abd: soft, nontender, nondistended, normal bowel sounds Neuro: CN II-XII grossly intact; no focal deficits or speech deficit Ext: Bipedal edema improved to 2+ equal today. There is still erythema of lower extremities with slight improvement. MSK: no visible deformities, no joint swelling Skin: BLE increased warmth and diffusely erythematous, intact, fluid-filled blisters, no mottling, no open wounds or purulent drainage - Assessment and Plan (1) Cellulitis of both lower extremities Current Visit: Yes Status: Suspected Assessment and Plan: Diffuse, non-purulent bilateral lower leg erythema and warmth up to mid-ocasio Amoxicillin 500mg PO BID x 5-7days (2) MARISELA (acute kidney injury) Current Visit: Yes Status: Acute Assessment and Plan: Possible etiology intravascular fluid depletion vs poor perfusion to kidneys Trend SCr Renal dosing, avoidance of nephrotoxic meds Resolved. (3) Diastolic CHF Current Visit: Yes Status: Chronic Assessment and Plan: Echo LVEF 60% with mild LV diastolic dysfunction, non-valvular CXR shows mild pulmonary vascular congestion, otherwise negative Lasix was incresaed to 40 mg IV BID. She showed improvement. lowered back to 20 mg IV BID and tolerated. Transition to PO Lasix today. (4) Epilepsy Current Visit: Yes Status: Chronic Assessment and Plan: Continue home dose phenobarbital and carbamazepine Phenobarbital must be in elixir form, tablets cause GI hemorrhage per patient (5) HTN (hypertension) Current Visit: No Status: Chronic Assessment and Plan: Doesn't appear she is on home medications for this. labetolol IV prn. (6) Hypothyroid Current Visit: Yes Status: Chronic Assessment and Plan: Continue home dose synthroidd (7) HLD (hyperlipidemia) Current Visit: No Status: Chronic (8) S/P cardiac pacemaker procedure Current Visit: No Status: Acute Assessment and Plan: Permanent pacemaker placed 12/21/17 due to sick sinus syndrome Tylenol prn pain near insertion site. (9) Lower extremity edema Current Visit: Yes Status: Acute Assessment and Plan: Acute on chronic LE edema Likely multifactorial d/t acute on chronic diastolic CHF, recent steroid use, and non-adherence to low sodium diet, and cellulitis BLE ultrasound preliminary report negative for DVT and SVT CXR shows mild pulmonary vascular congestion Elevate lower extremities Will transition patient to PO Lasix today. (10) Hyperglycemia Current Visit: Yes Status: Acute Assessment and Plan: Glucose on arrival 281 No h/o of DM on review of records, but will check Hgb A1c A1C 7.0 consistent with DM. patient declines insulin at this time. Will start diabetic diet. (11) DVT prophylaxis Current Visit: Yes Status: Acute Assessment and Plan: Heparin 5,000 units SubQ Q8H - Time Spent with Patient Total time spent is greater than 50% in coordination of care (as documented) at patient's floor/unit and/or counseling patient: Internal Medicine: Result - Labs CBC & Chem 7: 01/09/18 04:10 01/09/18 05:35 Labs: Short CBC 01/09/18 Range/Units 04:10 WBC 9.4 (4.3-11.1) K/mcL Hgb 11.9 (11.5-15.4) g/dL Hct 36.8 (35.3-44.9) % Plt Count 267 (140-400) K/mcL Neutrophils # 5.2 (1.6-8.9) K/mcL BMP 01/09/18 05:35 Sodium 134 L Potassium 4.3 Chloride 98 Carbon Dioxide 28 BUN 35 H Creatinine 1.07 Glucose 245 H Calcium 8.7 - ABG Interpretation ABG results: PT/INR, D-dimer PT 10.3 Seconds (9.4-12.1) 01/06/18 16:34 Consult Discharge Plan - Plan Referrals: Paresh Ceron MD [Primary Care Provider] - (3) Diastolic CHF Qualifiers: Heart failure chronicity: unspecified Qualified Code(s): I50.30 - Unspecified diastolic (congestive) heart failure (4) Epilepsy Qualifiers: Epilepsy type: unspecified Intractability: not intractable Status epilepticus: without status epilepticus Qualified Code(s): G40.909 - Epilepsy, unspecified, not intractable, without status epilepticus (5) HTN (hypertension) Qualifiers: Hypertension type: essential hypertension Qualified Code(s): I10 - Essential (primary) hypertension (6) Hypothyroid Qualifiers: Hypothyroidism type: acquired Qualified Code(s): E03.9 - Hypothyroidism, unspecified (7) HLD (hyperlipidemia) Qualifiers: Hyperlipidemia type: mixed hyperlipidemia Qualified Code(s): E78.2 - Mixed hyperlipidemia
[2018-01-09] MEDS ORDERED: Furosemide 20 MG/2 ML VIAL IVP SCH (08:00)
[2018-01-09] MEDS: (Omega-3 Fatty Acids [Fish Oil] 1,200 MG) PO SCH (08:42)
[2018-01-09] MEDS: carBAMazepine 200 MG TABLET PO SCH ×5 (09:35→20:46)
[2018-01-09] MEDS: Aspirin Enteric Coated 81 MG Tablet PO SCH (09:35)
[2018-01-09] MEDS: Amoxicillin 500 MG CAPSULE PO SCH ×3 (09:35→20:46)
[2018-01-09] MEDS: Loratadine 10 MG TABLET PO SCH (09:35)
[2018-01-09] MEDS: Furosemide 40 MG TABLET PO SCH (16:05)
[2018-01-10] MEDS ORDERED: Ketorolac 15 MG/ML VIAL IVP ONE (01:31)
[2018-01-10 04:21] LABS: Basophils # 0.1 K/mcL (0.0-0.2); Basophils % 1.1 %; Eosinophils # 0.3 K/mcL (0.0-0.6); Eosinophils % 3.5 %; Hematocrit 36.6 % (35.3-44.9); Hemoglobin 12.1 g/dL (11.5-15.4); Immature Granulocytes % 2.3 % (0-4); Lymphocytes # 2.9 K/mcL (0.6-4.6); Lymphocytes % 30.5 %; Mean Corpuscular HGB Conc 33.1 g/dL (31.6-35.5); Mean Corpuscular Hemoglobin 29.5 pg (28.0-33.3); Mean Corpuscular Volume 89.3 fL (83.0-100.0); Mean Platelet Volume 9.9 fL (9.4-12.4); Monocytes # 0.7 K/mcL (0.0-1.3); Monocytes % 7.8 %; Neutrophils # 5.2 K/mcL (1.6-8.9); Platelet Count 278 K/mcL (140-400); Red Cell Distribution Width 12.2 % (11.5-14.5); Segmented Neutrophils % 54.8 %
[2018-01-10 04:43] LABS: Calcium 8.7 mg/dL (8.6-10.3); Potassium 4.5 mEq/L (3.5-5.1)
[2018-01-10] MEDS: Levothyroxine 25 MCG TABLET PO SCH (05:45)
[2018-01-10] MEDS: *HR* Heparin 5,000 UNIT/ML VIAL SQ SCH ×3 (05:45→21:55)
[2018-01-10] MEDS: carBAMazepine 200 MG TABLET PO SCH ×4 (10:09→20:02)
[2018-01-10] MEDS: Aspirin Enteric Coated 81 MG Tablet PO SCH (10:09)
[2018-01-10] MEDS: Loratadine 10 MG TABLET PO SCH (10:10)
[2018-01-10] MEDS: Amoxicillin 500 MG CAPSULE PO SCH ×3 (10:10→20:02)
[2018-01-10] MEDS: Furosemide 40 MG TABLET PO SCH ×2 (10:10→17:13)
[2018-01-10] MEDS: (Omega-3 Fatty Acids [Fish Oil] 1,200 MG) PO SCH (10:11)
--- NOTE | 2018-01-10 11:22 | Internal Med Progress Note ---
Hospitalist Progress Note - Encounter Date of Encounter: 01/10/18 Time of Encounter: 11:16 - Subjective Interval History: No acute events. No complaints. She denies fevers/chills, n/v, abdominal pain. Edema showed a slight improvement today. - Exam Vitals: Temp Pulse Resp BP Pulse Ox 97.8 F 72 15 113/67 93 01/10/18 07:22 01/10/18 07:22 01/10/18 07:22 01/10/18 07:22 01/10/18 07:22 Exam: General: vital signs noted, no acute distress, non-toxic appearance, AAO x3 Eyes: EOMI, PERRL, sclera anicteric ENT: moist oral mucous membranes Cardio: distant heart sounds; RRR, no gallops or rubs, + S1/S2 Pulm: CTAB; no wheezes, rhonchi, or rales; diminished airflow, no respiratory distress Abd: soft, nontender, nondistended, normal bowel sounds Neuro: CN II-XII grossly intact; no focal deficits or speech deficit Ext: Bipedal edema improved to 2+ equal today. There is still erythema of lower extremities with slight improvement. MSK: no visible deformities, no joint swelling Skin: BLE increased warmth and diffusely erythematous, intact, fluid-filled blisters improved, no mottling, no open wounds or purulent drainage - Assessment and Plan (1) Cellulitis of both lower extremities Current Visit: Yes Status: Suspected Assessment and Plan: Diffuse, non-purulent bilateral lower leg erythema and warmth up to mid-ocasio still present but showing improvement. Amoxicillin 500mg PO BID x 5-7days (2) MARISELA (acute kidney injury) Current Visit: Yes Status: Acute Assessment and Plan: Possible etiology intravascular fluid depletion vs poor perfusion to kidneys Trend SCr Renal dosing, avoidance of nephrotoxic meds Resolved. (3) Diastolic CHF Current Visit: Yes Status: Chronic Assessment and Plan: Echo LVEF 60% with mild LV diastolic dysfunction, non-valvular CXR shows mild pulmonary vascular congestion, otherwise negative Lasix was incresaed to 40 mg IV BID. She showed improvement. lowered back to 20 mg IV BID and tolerated. Transition to PO Lasix today. (4) Epilepsy Current Visit: Yes Status: Chronic Assessment and Plan: Continue home dose phenobarbital and carbamazepine Phenobarbital must be in elixir form, tablets cause GI hemorrhage per patient (5) HTN (hypertension) Current Visit: No Status: Chronic Assessment and Plan: Doesn't appear she is on home medications for this. labetolol IV prn. (6) Hypothyroid Current Visit: Yes Status: Chronic Assessment and Plan: Continue home dose synthroidd (7) HLD (hyperlipidemia) Current Visit: No Status: Chronic (8) S/P cardiac pacemaker procedure Current Visit: No Status: Acute Assessment and Plan: Permanent pacemaker placed 12/21/17 due to sick sinus syndrome Tylenol prn pain near insertion site. (9) Lower extremity edema Current Visit: Yes Status: Acute Assessment and Plan: Acute on chronic LE edema Likely multifactorial d/t acute on chronic diastolic CHF, recent steroid use, and non-adherence to low sodium diet, and cellulitis BLE ultrasound preliminary report negative for DVT and SVT CXR shows mild pulmonary vascular congestion Elevate lower extremities Will transition patient to PO Lasix today. (10) Hyperglycemia Current Visit: Yes Status: Acute Assessment and Plan: Glucose on arrival 281 No h/o of DM on review of records, but will check Hgb A1c A1C 7.0 consistent with DM. patient declines insulin at this time. Will start diabetic diet. (11) DVT prophylaxis Current Visit: Yes Status: Acute Assessment and Plan: Heparin 5,000 units SubQ Q8H - Time Spent with Patient Total time spent is greater than 50% in coordination of care (as documented) at patient's floor/unit and/or counseling patient: Internal Medicine: Result - Labs CBC & Chem 7: 01/10/18 03:51 01/10/18 03:51 Labs: Short CBC 01/10/18 Range/Units 03:51 WBC 9.4 (4.3-11.1) K/mcL Hgb 12.1 (11.5-15.4) g/dL Hct 36.6 (35.3-44.9) % Plt Count 278 (140-400) K/mcL Neutrophils # 5.2 (1.6-8.9) K/mcL BMP 01/10/18 03:51 Sodium 135 L Potassium 4.5 Chloride 98 Carbon Dioxide 27 BUN 36 H Creatinine 1.09 Glucose 250 H Calcium 8.7 - ABG Interpretation ABG results: PT/INR, D-dimer PT 10.3 Seconds (9.4-12.1) 01/06/18 16:34 Consult Discharge Plan - Plan Referrals: Paresh Ceron MD [Primary Care Provider] - (3) Diastolic CHF Qualifiers: Heart failure chronicity: unspecified Qualified Code(s): I50.30 - Unspecified diastolic (congestive) heart failure (4) Epilepsy Qualifiers: Epilepsy type: unspecified Intractability: not intractable Status epilepticus: without status epilepticus Qualified Code(s): G40.909 - Epilepsy, unspecified, not intractable, without status epilepticus (5) HTN (hypertension) Qualifiers: Hypertension type: essential hypertension Qualified Code(s): I10 - Essential (primary) hypertension (6) Hypothyroid Qualifiers: Hypothyroidism type: acquired Qualified Code(s): E03.9 - Hypothyroidism, unspecified (7) HLD (hyperlipidemia) Qualifiers: Hyperlipidemia type: mixed hyperlipidemia Qualified Code(s): E78.2 - Mixed hyperlipidemia
[2018-01-10] MEDS: Acetaminophen 325 MG TABLET PO PRN (14:00)
[2018-01-10] MEDS: Artificial Tears SOLN 15 ML BOTTLE BOTH EYES SCH ×3 (14:01→20:03)
[2018-01-11 00:35] VITALS: BP 113/62
[2018-01-11] MEDS: Levothyroxine 25 MCG TABLET PO SCH (05:37)
[2018-01-11] MEDS: *HR* Heparin 5,000 UNIT/ML VIAL SQ SCH ×2 (05:37→14:44)
[2018-01-11] MEDS: Amoxicillin 500 MG CAPSULE PO SCH ×2 (10:20→14:48)
[2018-01-11] MEDS: Aspirin Enteric Coated 81 MG Tablet PO SCH (10:20)
[2018-01-11] MEDS: Artificial Tears SOLN 15 ML BOTTLE BOTH EYES SCH ×2 (10:20→12:11)
[2018-01-11] MEDS: Loratadine 10 MG TABLET PO SCH (10:20)
[2018-01-11] MEDS: (Omega-3 Fatty Acids [Fish Oil] 1,200 MG) PO SCH (10:20)
[2018-01-11] MEDS: carBAMazepine 200 MG TABLET PO SCH ×2 (10:20→14:47)
[2018-01-11] MEDS: Furosemide 40 MG TABLET PO SCH (10:20)
[2018-01-11 11:48] LABS: Calcium 8.5 mg/dL (8.6-10.3); Potassium 4.2 mEq/L (3.5-5.1)
--- NOTE | 2018-01-11 12:40 | Discharge Summary ---
- NOTES TO OUTPATIENT PROVIDER Notes to Outpatient Provider: Repeat BMP in 5-7 days. Continue to monitor fluid status/edema. Will be returned back to home dose of Lasix 40 mg daily. Date of Encounter: 01/11/18 Time of Encounter: 09:15 - Discharge Diagnosis (1) Cellulitis of both lower extremities Priority: Primary Status: Suspected (2) MARISELA (acute kidney injury) Priority: Secondary Status: Acute (3) Diastolic CHF Priority: Secondary Status: Chronic Qualifiers: Heart failure chronicity: unspecified Qualified Code(s): I50.30 - Unspecified diastolic (congestive) heart failure (4) Epilepsy Priority: Secondary Status: Chronic Qualifiers: Epilepsy type: unspecified Intractability: not intractable Status epilepticus: without status epilepticus Qualified Code(s): G40.909 - Epilepsy, unspecified, not intractable, without status epilepticus (5) HTN (hypertension) Priority: Secondary Status: Chronic Qualifiers: Hypertension type: essential hypertension Qualified Code(s): I10 - Essential (primary) hypertension (6) Hypothyroid Priority: Secondary Status: Chronic Qualifiers: Hypothyroidism type: acquired Qualified Code(s): E03.9 - Hypothyroidism, unspecified (7) HLD (hyperlipidemia) Priority: Secondary Status: Chronic Qualifiers: Hyperlipidemia type: mixed hyperlipidemia Qualified Code(s): E78.2 - Mixed hyperlipidemia (8) S/P cardiac pacemaker procedure Priority: Secondary Status: Acute (9) Lower extremity edema Priority: Secondary Status: Acute (10) Hyperglycemia Priority: Secondary Status: Acute Hospital course: Ms. Yo is a 82 year old female with PMH diastolic CHF, s/p permanent pacemaker (sick sinus syndrome), CKD, HTN, epilepsy, and gout presents to ED for c/o BLE swelling. Her LE edema has worsened throughout the day, but has been above baseline x 3 days and reports > 10 lb weight gain over 24 hours. She reports faithfully taking 40 mg lasix daily. Recent med changes include addition of allopurinol for gout and 5-day prednisone course. She completed the steroid course 2-3 days ago. Fluid-filled blisters have appeared on legs in addition to the swelling. She denies fever, chills, nausea, vomiting, chest pain or pressure, ARNOLD, coughing, wheezing, abdominal pain, diarrhea, constipation, or difficulty urinating. Last echo 8/6/18 shows LVEF 65% with mild LV diastolic dysfunction. ED Course: Afebrile and hemodynamically stable, oxygen saturation 94% on room air. EKG shows no acute ischemic changes and is NSR. CXR shows mild pulmonary vascular congestion. Preliminary BLE doppler negative for DVT and SVT. Negative troponin, BNP 44, glucose 281--metabolic panel otherwise unremarkable. She received 325mg ASA and 40mg furosemide IVP. She was admitted for acute on chronic diastolic CHF and cellulitis. She was started on Amoxicillin and continued with IV diuresis. She had acute kidney injury that resolved with supportive measures. She was persistently hyperglycemic and a hemoglobin A1C was checked that showed 7.0% consistent with diagnosis of diabetes. Patient was recommended an insulin sliding scale but she preferred to follow-up about diabetes as outpatient. She was switched to cardiac/Diabetic diet. Heart failure and cellutlitis improved with therapy. Patient was started on ELIEL inhibitor for diabetes/hypertension. She was discharged in stable condition. We recommend treating diabetes. She is open to considering oral diabetic meds. Would recommend starting and monitoring her for this. She is reluctant to do glucose checks because she is nervous of finger sticks. We discussed benefits of glucose checks for diabetes management. - Time Spent with Patient Total time spent providing and/or coordinating discharge services: - Discharge Medications Home Medications: Acetaminophen [Tylenol] 650 mg PO Q6HR PRN 11/02/17 [History] Aspirin [Lo-Dose Aspirin EC] 81 mg PO DAILY 11/02/17 [History] Atorvastatin [Lipitor] 40 mg PO HS 11/02/17 [History] Calcifediol [Rayaldee] 30 mcg PO HS 11/02/17 [History] Levothyroxine [Synthroid] 25 mcg PO 0630 11/02/17 [History] [place]-3 Fatty Acids [Fish Oil] 1,200 mg PO DAILY 11/02/17 [History] PHENobarbital [Phenobarbital] 60 mg PO BID 11/02/17 [History] carBAMazepine [Tegretol] 200 mg PO QID 11/02/17 [History] Allopurinol [Zyloprim 100 MG] 100 mg PO DAILY 12/21/17 [History] Cetirizine HCl [Zyrtec] 10 mg PO DAILY 12/21/17 [History] Furosemide [Lasix] 40 mg PO DAILY 12/21/17 [History] Amoxicillin [Amoxil] 500 mg PO TID 9 Days capsule 01/11/18 [Rx] Artificial Tears SOLN [Akwa Tears] 1 drop BOTH EYES QID bottle 01/11/18 [Rx] Lisinopril [Zestril] 5 mg PO DAILY tablet 01/11/18 [Rx] Allergies/Adverse Reactions: Allergy/AdvReac Type Severity Reaction Status Date / Time codeine Allergy Anaphylaxis Verified 11/02/17 08:25 diphenhydramine Allergy Hives Verified 11/02/17 08:25 [From Benadryl] morphine Allergy Anaphylaxis Verified 11/02/17 08:25 perfume Allergy Rash Verified 11/02/17 08:25 IV contrast Allergy Anaphylaxis Uncoded 11/02/17 08:25 Date of admission: 01/07/18 17:43 Primary care physician: Paresh Ceron Consults: 01/07/18 09:19 Consult to Wound Care [CONS] Routine Reason for Consult: Leg wounds Call Completed: No Discharging clinician: Rhoda Serrato - Constitutional Vitals: Temp Pulse Resp BP Pulse Ox 97.9 F 74 16 113/62 96 01/11/18 00:35 01/11/18 00:35 01/11/18 00:35 01/11/18 00:35 01/11/18 00:35 Exam: General: vital signs noted, no acute distress, non-toxic appearance, AAO x3 Eyes: EOMI, PERRL, sclera anicteric ENT: moist oral mucous membranes Cardio: distant heart sounds; RRR, no gallops or rubs, + S1/S2 Pulm: CTAB; no wheezes, rhonchi, or rales; diminished airflow, no respiratory distress Abd: soft, nontender, nondistended, normal bowel sounds Neuro: CN II-XII grossly intact; no focal deficits or speech deficit Ext: Bipedal edema improved to 2+ equal today. There is still erythema of lower extremities with slight improvement. MSK: no visible deformities, no joint swelling Skin: BLE ierythematous but improved, intact, fluid-filled blisters improved, no mottling, no open wounds or purulent drainage - Patient Status Disposition: Home Health Service Condition: Fair Functional capacity at discharge: uses cane/walker Overall status at discharge: patient is progressing back to baseline - Discharge Instructions Instructions: Heart Failure (DC), Chest Pain (DC), Pacemaker (DC), Hypothyroidism (DC), Chronic Hypertension (DC) Follow Up With: Paresh Ceron MD [Primary Care Provider] - - Diet and Activity Activity: as per physical therapy Diet: diabetic diet, low fat, low cholesterol, low salt diet
--- NOTE | 2018-01-11 13:05 | Physician Discharge Referral ---
Home Health/Hosp Referral Info Transfer to: Home Health Provider in Charge Post Discharge: PCP - Diagnosis (1) Diastolic CHF Priority: Primary Status: Chronic (2) Cellulitis of both lower extremities Priority: Secondary Status: Suspected (3) MARISELA (acute kidney injury) Priority: Secondary Status: Acute (4) Epilepsy Priority: Secondary Status: Chronic (5) HTN (hypertension) Priority: Secondary Status: Chronic (6) Hypothyroid Priority: Secondary Status: Chronic (7) HLD (hyperlipidemia) Priority: Secondary Status: Chronic (8) S/P cardiac pacemaker procedure Priority: Secondary Status: Acute (9) Lower extremity edema Priority: Secondary Status: Acute (10) Hyperglycemia Priority: Secondary Status: Acute - Respiratory Orders Smoking Cessation: Smoking cessation has been advised. For more information, call the [place] Tobacco Quit Line at 2-019-UDDA-NOW. - Services Needed Following services are medically necessary services: Physical Therapy, Occupational Therapy - Transfer Medications Home Medications: Acetaminophen [Tylenol] 650 mg PO Q6HR PRN 11/02/17 [History] Aspirin [Lo-Dose Aspirin EC] 81 mg PO DAILY 11/02/17 [History] Atorvastatin [Lipitor] 40 mg PO HS 11/02/17 [History] Calcifediol [Rayaldee] 30 mcg PO HS 11/02/17 [History] Levothyroxine [Synthroid] 25 mcg PO 0630 11/02/17 [History] [place]-3 Fatty Acids [Fish Oil] 1,200 mg PO DAILY 11/02/17 [History] PHENobarbital [Phenobarbital] 60 mg PO BID 11/02/17 [History] carBAMazepine [Tegretol] 200 mg PO QID 11/02/17 [History] Allopurinol [Zyloprim 100 MG] 100 mg PO DAILY 12/21/17 [History] Cetirizine HCl [Zyrtec] 10 mg PO DAILY 12/21/17 [History] Furosemide [Lasix] 40 mg PO DAILY 12/21/17 [History] Amoxicillin [Amoxil] 500 mg PO TID 9 Days capsule 01/11/18 [Rx] Artificial Tears SOLN [Akwa Tears] 1 drop BOTH EYES QID bottle 01/11/18 [Rx] Lisinopril [Zestril] 5 mg PO DAILY tablet 01/11/18 [Rx] Allergies/Adverse Reactions: Allergy/AdvReac Type Severity Reaction Status Date / Time codeine Allergy Anaphylaxis Verified 11/02/17 08:25 diphenhydramine Allergy Hives Verified 11/02/17 08:25 [From Benadryl] morphine Allergy Anaphylaxis Verified 11/02/17 08:25 perfume Allergy Rash Verified 11/02/17 08:25 IV contrast Allergy Anaphylaxis Uncoded 11/02/17 08:25 Certification: Further, I certify that my clinical findings support that this patient is homebound (i.e. absences from home require considerable and taxing effort and are for medical reasons or catholic services or infrequently or short duration when for other reasons) because: Homebound Reason: Leaving home requires considerable and taxing effort due to condition Attestation: My signature below is to certify that this patient is under my care and that I, or nurse practitioner, or a physician's esol teacher assistant working with me, has a [id number] encounter with this patient.
[2018-01-11] MEDS: Acetaminophen 325 MG TABLET PO PRN (14:47)
[2018-01-11] MEDS ORDERED: Furosemide 40 MG TABLET PO ONE (17:18)
[2018-01-11] MEDS ORDERED: Amoxicillin 500 MG CAPSULE PO ONE (17:18)
[2018-01-11] MEDS ORDERED: carBAMazepine 200 MG TABLET PO ONE (17:18)
[2018-01-11] MEDS ORDERED: Loratadine 10 MG TABLET PO ONE (17:18)
[2018-01-11] MEDS ORDERED: Acetaminophen 325 MG TABLET PO ONE (17:18)
[2018-01-11] MEDS ORDERED: *HR* Heparin 5,000 UNIT/ML VIAL IVP ONE (17:18)
[2018-01-11] MEDS ORDERED: Aspirin Enteric Coated 81 MG Tablet PO ONE (17:18)
[2018-01-11] MEDS ORDERED: Levothyroxine 25 MCG TABLET PO ONE (17:18)
== END 2018-01-11 17:19 | disposition home health service (06) | DRG 602 ==
LOC: EMEROOARM 16:14 → 2NENU 16:14 → SUATTDRO 01-07 17:43
PROVIDERS: ADMIT Internal Medicine; ATTEND Student in an Organized Health Care Education/Training Program

== ENCOUNTER 2018-04-22 19:03 | Inpatient (IN) ==
[2018-04-22] MEDS ORDERED: *HR* HYDROcodone/Acet 5/325 mg TABLET PO ONE (19:16)
--- NOTE | 2018-04-22 19:43 | Emergency Department Note ---
Disposition Clinical Impression: Left hip pain, Inability to ambulate due to hip, Inability to perform activities of daily living Disposition: Admitted As Inpatient Condition: Fair Referrals: NONE,PCP [Primary Care Provider] - Forms: ED Satisfaction Letter Time of Disposition: 21:33 Extremity Problem HPI - General Chief complaint: ED Extremity Problem,Nontraumatic Stated complaint: Lt Hip Pain Time Seen by Provider: 04/22/18 19:05 Source: patient Mode of arrival: ambulatory Limitations: no limitations Nursing Notes Reviewed: Yes Vital Signs Reviewed: Yes - History of Present Illness HPI Narrative: Alert and oriented nontoxic-appearing 82-year-old female presents by EMS for evaluation of nontraumatic left hip pain. She states a history of osteoarthritis in the past however this pain is worse than her usual arthritic pain. Pain is well localized to the left hip joint. She denies any low back pain. She denies any radiation or migration of this pain. She denies any numbness or tingling of the extremity. Pain is made worsened with range of motion, weightbearing, ambulation, as well as palpation. She has used her pr eviously prescribed Voltaren gel at home without relief. Pt Subjective Complaint: joint pain (Left hip) Onset (ago): day(s) (2) Consistency: Worsening Injury Location: left Pain Scale: 10 Quality: aching Radiation: none Improves with: nothing Worsens with: range of motion, walking, palpation Associated symptoms: Reports: denies other symptoms - Related Data Home Medications Medication Instructions Recorded Confirmed Acetaminophen [Tylenol] 650 mg PO Q6HR PRN 11/02/17 01/29/18 Aspirin [Lo-Dose Aspirin EC] 81 mg PO DAILY 11/02/17 01/29/18 Atorvastatin [Lipitor] 40 mg PO HS 11/02/17 01/29/18 Calcifediol [Rayaldee] 30 mcg PO HS 11/02/17 01/29/18 Levothyroxine [Synthroid] 25 mcg PO 0630 11/02/17 01/29/18 [place]-3 Fatty Acids [Fish Oil] 1,200 mg PO DAILY 11/02/17 01/29/18 PHENobarbital [Phenobarbital] 60 mg PO BID 11/02/17 01/29/18 carBAMazepine [Tegretol] 200 mg PO QID 11/02/17 01/29/18 Allopurinol [Zyloprim 100 MG] 100 mg PO DAILY 12/21/17 01/29/18 Cetirizine HCl [Zyrtec] 10 mg PO DAILY 12/21/17 01/29/18 Furosemide [Lasix] 40 mg PO DAILY 12/21/17 01/29/18 Artificial Tears SOLN [Akwa Tears] 1 drop BOTH EYES BID 01/29/18 01/29/18 Linagliptin [Tradjenta] 5 mg PO DAILY 01/29/18 01/29/18 Previous Rx's Medication Instructions Recorded Lisinopril [Zestril] 5 mg PO DAILY #30 tablet 01/11/18 Naproxen 500 mg PO BID PRN #10 tablet 01/29/18 Omeprazole [PriLOSEC] 20 mg PO DAILY #10 cap 01/29/18 Allergies Allergy/AdvReac Type Severity Reaction Status Date / Time codeine Allergy Anaphylaxis Verified 11/02/17 08:25 diphenhydramine Allergy Hives Verified 11/02/17 08:25 [From Benadryl] morphine Allergy Anaphylaxis Verified 11/02/17 08:25 perfume Allergy Rash Verified 11/02/17 08:25 IV contrast Allergy Anaphylaxis Uncoded 11/02/17 08:25 All systems ED: reviewed and negative except as stated. Review of Systems: As Per HPI Constitutional: Denies: fever, chills, weakness, weight change Eyes: Denies: eye pain, eye discharge, vision change ENT ED: Denies: ear pain, throat pain, dental pain, hearing loss, epistaxis, congestion, dysphagia Cardiovascular: Denies: chest pain, palpitations, dyspnea on exertion, edema, syncope Respiratory: Denies: cough, dyspnea, wheezes, hemoptysis, stridor Gastrointestinal: Denies: abdominal pain, nausea, vomiting, diarrhea, constipation, hematemesis, melena, hematochezia Genitourinary: Denies: dysuria, frequency, hematuria, discharge Musculoskeletal: Reports: as per HPI, arthralgia (Left hip pain). Denies: back pain, neck pain, myalgia Integumentary: Denies: rash, abrasion, lesions Neurological: Denies: headache, weakness, numbness, paresthesias, confusion, abnormal gait, vertigo Psychiatric: Denies: anxiety, depression, suicidal thoughts, homicidal thoughts, auditory hallucinations, visual hallucinations Endocrine: Denies: fatigue Hematological/Lymphatic: Denies: easy bleeding, easy bruising Allergic/Immunologic: Denies: facial swelling, urticaria Past Medical History - Past Medical History Attestation: Yes The following information was validated with the patient. Source: patient, nursing notes reviewed Medical history: Reports: arthritis, CHF, CVA, hyperlipidemia, hypertension, renal disease, seizures, thyroid disease, other Surgical history: Reports: appendectomy, breast surgery, hysterectomy, pacemaker/AICD Psychiatric history: Reports: no psych history - Social History Smoking Status: Never smoker Smokeless Tobacco Status: No Alcohol use: Reports: none Drug use: Reports: none Physical Exam - General Limitations: no limitations General appearance: alert, in no apparent distress - Head Head exam: atraumatic, normocephalic, normal inspection - Eye Eye exam: Present: normal appearance, PERRL, EOMI. Absent: nystagmus - ENT ENT exam: mucous membranes moist - Neck Neck exam: Present: normal inspection, full ROM - Chest Chest inspection: Present: normal inspection, symmetric chest wall rise - Extremities Exam Extremities exam: Present: pedal edema (3+ pedal and pretibial edema noted bilaterally, patient states is baseline.) - Expanded Lower Extremity Exam Hip/Pelvis exam: Present: tenderness (Left hip diffusely), pelvis stable. Absent: full ROM (Range of motion limited by pain, left hip), swelling, abrasion, laceration, ecchymosis, deformity, erythema, external rotation, internal rotation, shortening Upper leg exam: Present: normal inspection, full ROM Knee exam: Present: normal inspection, full ROM Lower leg exam: Present: normal inspection, full ROM Ankle exam: Present: normal inspection, full ROM Foot/toe exam: Present: normal inspection, full ROM Neurovascular/Tendon exam: Present: normal capillary refill. Absent: pulse deficit, tendon deficit, extremity cold to touch Gait: not tested/not observed - Neurological Exam Neurological exam: Present: alert, oriented X3 - Psychiatric Psychiatric exam: Present: normal affect, normal mood - Skin Skin exam: Present: warm, dry, intact, normal color Course Course Narrative: 2119: We attempted annular patient however she was unable to do so due to the discomfort from the left hip. CT imaging no acute osseous abnormality of the left hip. ESR is slightly elevated but CRP and white blood cell count within normal limits. She is afebrile. We will admit to the hospitalist service for her inability to ambulate and consequently inability to perform activities of daily living. I discussed this plan with Dr. Bautista. Dr. Bautista has had a [id number] evaluation patient and agrees with this plan. 2132: I spoke with Dr. Tran, admitting hospitalist. He has accepted the patient for admission to hospitalist care for the aforementioned problems. She will likely receive PT and OT while in house along with pain control. Vital Signs Temperature 98.5 F 04/22/18 19:13 Pulse Rate 94 04/22/18 19:13 Respiratory Rate 20 04/22/18 19:13 Blood Pressure 174/78 04/22/18 19:13 O2 Sat by Pulse Oximetry 97 04/22/18 19:13 Temperature 98.5 F 04/22/18 19:13 Pulse Rate 94 04/22/18 19:13 Respiratory Rate 20 04/22/18 19:13 Blood Pressure 174/78 04/22/18 19:13 O2 Sat by Pulse Oximetry 97 04/22/18 19:13 Oxygen Delivery Oxygen Delivery Room Air Extremity Problem, Nontraumati - Medical Records Medical records reviewed: Yes I reviewed the patient's medical records. - Lab Data Result diagrams: 04/22/18 20:44 04/22/18 20:44 Lab Results 04/22/18 04/22/18 04/22/18 Range/Units 20:44 20:44 20:44 WBC 8.9 (4.3-11.1) K/mcL RBC 4.48 (3.82-4.97) M/mcL Hgb 13.2 (11.5-15.4) g/dL Hct 40.5 (35.3-44.9) % MCV 90.4 (83.0-100.0) fL MCH 29.5 (28.0-33.3) pg MCHC 32.6 (31.6-35.5) g/dL RDW 12.9 (11.5-14.5) % Plt Count 257 (140-400) K/mcL MPV 9.5 (9.4-12.4) fL Immature Gran % 0.9 (0-4) % Seg Neutrophils % 69.2 % Lymphocytes % 20.0 % Monocytes % 8.2 % Eosinophils % 1.1 % Basophils % 0.6 % Neutrophils # 6.1 (1.6-8.9) K/mcL Lymphocytes # 1.8 (0.6-4.6) K/mcL Monocytes # 0.7 (0.0-1.3) K/mcL Eosinophils # 0.1 (0.0-0.6) K/mcL Basophils # 0.1 (0.0-0.2) K/mcL ESR 48 H (0-15) mm/hr Sodium 140 (136-145) mEq/L Potassium 4.1 (3.5-5.1) mEq/L Chloride 104 (98-107) mEq/L Carbon Dioxide 28 (23-29) mEq/L BUN 29 H (8-23) mg/dL Creatinine 1.25 H (0.60-1.20) mg/dL Est GFR ( Amer) 50 L (> 60) Est GFR (Non-Af Amer) 41 L (> 60) BUN/Creatinine Ratio 23 (6-26) Glucose 153 H (70-105) mg/dL Calculated Osmolality 299 (280-300) Calcium 9.1 (8.6-10.3) mg/dL C-Reactive Protein < 5 (Less than 10) mg/L Urine Color (Yellow) Urine Clarity (Clear) Urine pH (5.0-8.0) pH Units Ur Specific [place] (1.010-1.025) Urine Protein (Neg-Trace) mg/dL Urine Glucose (UA) (Normal) mg/dL Urine Ketones (Negative) mg/dL Urine Blood (Negative) Urine Nitrite (Negative) Urine Bilirubin (Negative) Urine Urobilinogen (Normal) mg/dL Ur Leukocyte Esterase (Negative) Ur Culture Indicated? (NO) 04/22/18 Range/Units 21:01 WBC (4.3-11.1) K/mcL RBC (3.82-4.97) M/mcL Hgb (11.5-15.4) g/dL Hct (35.3-44.9) % MCV (83.0-100.0) fL MCH (28.0-33.3) pg MCHC (31.6-35.5) g/dL RDW (11.5-14.5) % Plt Count (140-400) K/mcL MPV (9.4-12.4) fL Immature Gran % (0-4) % Seg Neutrophils % % Lymphocytes % % Monocytes % % Eosinophils % % Basophils % % Neutrophils # (1.6-8.9) K/mcL Lymphocytes # (0.6-4.6) K/mcL Monocytes # (0.0-1.3) K/mcL Eosinophils # (0.0-0.6) K/mcL Basophils # (0.0-0.2) K/mcL ESR (0-15) mm/hr Sodium (136-145) mEq/L Potassium (3.5-5.1) mEq/L Chloride (98-107) mEq/L Carbon Dioxide (23-29) mEq/L BUN (8-23) mg/dL Creatinine (0.60-1.20) mg/dL Est GFR ( Amer) (> 60) Est GFR (Non-Af Amer) (> 60) BUN/Creatinine Ratio (6-26) Glucose (70-105) mg/dL Calculated Osmolality (280-300) Calcium (8.6-10.3) mg/dL C-Reactive Protein (Less than 10) mg/L Urine Color Yellow (Yellow) Urine Clarity Clear (Clear) Urine pH 6.0 (5.0-8.0) pH Units Ur Specific [place] 1.017 (1.010-1.025) Urine Protein Negative (Neg-Trace) mg/dL Urine Glucose (UA) Normal (Normal) mg/dL Urine Ketones Negative (Negative) mg/dL Urine Blood Negative (Negative) Urine Nitrite Negative (Negative) Urine Bilirubin Negative (Negative) Urine Urobilinogen Normal (Normal) mg/dL Ur Leukocyte Esterase Negative (Negative) Ur Culture Indicated? NO (NO) - Radiology Data Radiology results reviewed: Yes I reviewed the patient's radiology results. Attestation Statement - Attestation Attestation: I, Eric Bautista DO have provided [id number] time during the care of this patient. Detailed review the presentation, symptoms, medical history were discussed and reviewed with the advanced practice provider Edwin Agarwal PA-C/[employer]. Medical intervention labs and imaging studies were reviewed in detail. See full documentation of physical exam and course of care in the advanced practice provider's note. I agree with the determined course of care, medical intervention and disposition put forth by the advanced practice provider. See below documentation for changes or alterations in documentation.
--- NOTE | 2018-04-22 20:51 | Emergency Department Note ---
Disposition Clinical Impression: Left hip pain, Inability to ambulate due to hip, Inability to perform activities of daily living Disposition: Admitted As Inpatient Condition: Fair Time of Disposition: 21:45 General Adult HPI - General Chief complaint: ED Extremity Problem,Nontraumatic Stated complaint: Lt Hip Pain Time Seen by Provider: 04/22/18 19:05 Source: patient Mode of arrival: ambulatory Limitations: no limitations - History of Present Illness Pain Scale: 10 - Related Data Home Medications Medication Instructions Recorded Confirmed Acetaminophen [Tylenol] 650 mg PO Q6HR PRN 11/02/17 01/29/18 Aspirin [Lo-Dose Aspirin EC] 81 mg PO DAILY 11/02/17 01/29/18 Atorvastatin [Lipitor] 40 mg PO HS 11/02/17 01/29/18 Calcifediol [Rayaldee] 30 mcg PO HS 11/02/17 01/29/18 Levothyroxine [Synthroid] 25 mcg PO 0630 11/02/17 01/29/18 [place]-3 Fatty Acids [Fish Oil] 1,200 mg PO DAILY 11/02/17 01/29/18 PHENobarbital [Phenobarbital] 60 mg PO BID 11/02/17 01/29/18 carBAMazepine [Tegretol] 200 mg PO QID 11/02/17 01/29/18 Allopurinol [Zyloprim 100 MG] 100 mg PO DAILY 12/21/17 01/29/18 Cetirizine HCl [Zyrtec] 10 mg PO DAILY 12/21/17 01/29/18 Furosemide [Lasix] 40 mg PO DAILY 12/21/17 01/29/18 Artificial Tears SOLN [Akwa Tears] 1 drop BOTH EYES BID 01/29/18 01/29/18 Linagliptin [Tradjenta] 5 mg PO DAILY 01/29/18 01/29/18 Previous Rx's Medication Instructions Recorded Lisinopril [Zestril] 5 mg PO DAILY #30 tablet 01/11/18 Naproxen 500 mg PO BID PRN #10 tablet 01/29/18 Omeprazole [PriLOSEC] 20 mg PO DAILY #10 cap 01/29/18 Allergies Allergy/AdvReac Type Severity Reaction Status Date / Time codeine Allergy Anaphylaxis Verified 11/02/17 08:25 diphenhydramine Allergy Hives Verified 11/02/17 08:25 [From Benadryl] morphine Allergy Anaphylaxis Verified 11/02/17 08:25 perfume Allergy Rash Verified 11/02/17 08:25 IV contrast Allergy Anaphylaxis Uncoded 11/02/17 08:25 Constitutional: Denies: fever, chills, weakness, weight change Eyes: Denies: eye pain, eye discharge, vision change ENT ED: Denies: ear pain, throat pain, dental pain, hearing loss, epistaxis, congestion, dysphagia Cardiovascular: Denies: chest pain, palpitations, dyspnea on exertion, edema, syncope Respiratory: Denies: cough, dyspnea, wheezes, hemoptysis, stridor Gastrointestinal: Denies: abdominal pain, nausea, vomiting, diarrhea, constipation, hematemesis, melena, hematochezia Genitourinary: Denies: dysuria, frequency, hematuria, discharge Musculoskeletal: Reports: as per HPI, arthralgia (Left hip pain). Denies: back pain, neck pain, myalgia Integumentary: Denies: rash, abrasion, lesions Neurological: Denies: headache, weakness, numbness, paresthesias, confusion, abnormal gait, vertigo Psychiatric: Denies: anxiety, depression, suicidal thoughts, homicidal thoughts, auditory hallucinations, visual hallucinations Endocrine: Denies: fatigue Hematological/Lymphatic: Denies: easy bleeding, easy bruising Allergic/Immunologic: Denies: facial swelling, urticaria Past Medical History - Past Medical History Medical history: Reports: arthritis, CHF, CVA, hyperlipidemia, hypertension, re nal disease, seizures, thyroid disease, other Surgical history: Reports: appendectomy, breast surgery, hysterectomy, pacemaker/AICD Psychiatric history: Reports: no psych history - Social History Smoking Status: Never smoker Smokeless Tobacco Status: No Alcohol use: Reports: none Drug use: Reports: none Physical Exam - General Limitations: no limitations General appearance: alert, in no apparent distress Course Vital Signs Temperature 98.5 F 04/22/18 19:13 Pulse Rate 94 04/22/18 19:13 Respiratory Rate 20 04/22/18 19:13 Blood Pressure 174/78 04/22/18 19:13 O2 Sat by Pulse Oximetry 97 04/22/18 19:13 Temperature 98.5 F 04/22/18 19:13 Pulse Rate 94 04/22/18 19:13 Respiratory Rate 20 04/22/18 19:13 Blood Pressure 174/78 04/22/18 19:13 O2 Sat by Pulse Oximetry 97 04/22/18 19:13 Oxygen Delivery Oxygen Delivery Room Air Medical Decision Making - Lab Data Result diagrams: 04/22/18 20:44 04/22/18 20:44 Lab Results 04/22/18 04/22/18 04/22/18 Range/Units 20:44 20:44 20:44 WBC 8.9 (4.3-11.1) K/mcL RBC 4.48 (3.82-4.97) M/mcL Hgb 13.2 (11.5-15.4) g/dL Hct 40.5 (35.3-44.9) % MCV 90.4 (83.0-100.0) fL MCH 29.5 (28.0-33.3) pg MCHC 32.6 (31.6-35.5) g/dL RDW 12.9 (11.5-14.5) % Plt Count 257 (140-400) K/mcL MPV 9.5 (9.4-12.4) fL Immature Gran % 0.9 (0-4) % Seg Neutrophils % 69.2 % Lymphocytes % 20.0 % Monocytes % 8.2 % Eosinophils % 1.1 % Basophils % 0.6 % Neutrophils # 6.1 (1.6-8.9) K/mcL Lymphocytes # 1.8 (0.6-4.6) K/mcL Monocytes # 0.7 (0.0-1.3) K/mcL Eosinophils # 0.1 (0.0-0.6) K/mcL Basophils # 0.1 (0.0-0.2) K/mcL ESR 48 H (0-15) mm/hr Sodium 140 (136-145) mEq/L Potassium 4.1 (3.5-5.1) mEq/L Chloride 104 (98-107) mEq/L Carbon Dioxide 28 (23-29) mEq/L BUN 29 H (8-23) mg/dL Creatinine 1.25 H (0.60-1.20) mg/dL Est GFR ( Amer) 50 L (> 60) Est GFR (Non-Af Amer) 41 L (> 60) BUN/Creatinine Ratio 23 (6-26) Glucose 153 H (70-105) mg/dL Calculated Osmolality 299 (280-300) Calcium 9.1 (8.6-10.3) mg/dL C-Reactive Protein < 5 (Less than 10) mg/L Urine Color (Yellow) Urine Clarity (Clear) Urine pH (5.0-8.0) pH Units Ur Specific [place] (1.010-1.025) Urine Protein (Neg-Trace) mg/dL Urine Glucose (UA) (Normal) mg/dL Urine Ketones (Negative) mg/dL Urine Blood (Negative) Urine Nitrite (Negative) Urine Bilirubin (Negative) Urine Urobilinogen (Normal) mg/dL Ur Leukocyte Esterase (Negative) Ur Culture Indicated? (NO) 04/22/18 Range/Units 21:01 WBC (4.3-11.1) K/mcL RBC (3.82-4.97) M/mcL Hgb (11.5-15.4) g/dL Hct (35.3-44.9) % MCV (83.0-100.0) fL MCH (28.0-33.3) pg MCHC (31.6-35.5) g/dL RDW (11.5-14.5) % Plt Count (140-400) K/mcL MPV (9.4-12.4) fL Immature Gran % (0-4) % Seg Neutrophils % % Lymphocytes % % Monocytes % % Eosinophils % % Basophils % % Neutrophils # (1.6-8.9) K/mcL Lymphocytes # (0.6-4.6) K/mcL Monocytes # (0.0-1.3) K/mcL Eosinophils # (0.0-0.6) K/mcL Basophils # (0.0-0.2) K/mcL ESR (0-15) mm/hr Sodium (136-145) mEq/L Potassium (3.5-5.1) mEq/L Chloride (98-107) mEq/L Carbon Dioxide (23-29) mEq/L BUN (8-23) mg/dL Creatinine (0.60-1.20) mg/dL Est GFR ( Amer) (> 60) Est GFR (Non-Af Amer) (> 60) BUN/Creatinine Ratio (6-26) Glucose (70-105) mg/dL Calculated Osmolality (280-300) Calcium (8.6-10.3) mg/dL C-Reactive Protein (Less than 10) mg/L Urine Color Yellow (Yellow) Urine Clarity Clear (Clear) Urine pH 6.0 (5.0-8.0) pH Units Ur Specific [place] 1.017 (1.010-1.025) Urine Protein Negative (Neg-Trace) mg/dL Urine Glucose (UA) Normal (Normal) mg/dL Urine Ketones Negative (Negative) mg/dL Urine Blood Negative (Negative) Urine Nitrite Negative (Negative) Urine Bilirubin Negative (Negative) Urine Urobilinogen Normal (Normal) mg/dL Ur Leukocyte Esterase Negative (Negative) Ur Culture Indicated? NO (NO) Attestation Statement - Attestation Attestation: I, Eric Bautista DO have provided [id number] time during the care of this patient. Detailed review the presentation, symptoms, medical history were discussed and reviewed with the advanced practice provider Edwin Reilly/JOSEP. Medical intervention labs and imaging studies were reviewed in detail. See full documentation of physical exam and course of care in the advanced practice provider's note. I agree with the determined course of care, medical intervent ion and disposition put forth by the advanced practice provider. See below documentation for changes or alterations in documentation. 82-year-old female presents emergency room for several days with left hip pain. Symptoms of been progressively getting worse. Patient denies any falls trauma or injury. Patient is alert she is oriented she speaking in full sentences. Patient denies chest pain, shortness of breath, headache, vision changes. Denies any nausea vomiting or diarrhea. Currently denying fevers or chills. She has no numbness tingling or paresthesias in the lower extremities. She has pain that is isolated to the left hip. On physical exam she is resting comforta sujatha in the bed. Heart is regular. Lungs are clear. Abdomen is soft no guarding or rigidity and no peritoneal symptoms. Left hip has pain is isolated to the greater trochanter. She has no pain with palpation of the inguinal area no signs of hernia noted. Patient has stable femoral pulses bilaterally. DP pulses and PT pulses are symmetrical bilaterally. Patient has pitting edema to the knee bilaterally but no signs of asymmetry at this point. Patient has no gross deformity injury or abnormality noted. Her main complaint is she has pain in the hip to the point where she is unable to move her leg in any fashion. Patient was CT imaging of the hip completed this time along with screening labs. Patient is unable to ambulate at this point. Symptomatically controlled will be attempted with the patient is unable to ambulate and will discuss disposition with possible admission. See detailed documentation the physical exam, medical intervention, medical decision-making and disposition in the advanced practice provider's note. No critical care provider the patient's treatment course at this time. 2130 Patient has negative imaging modality of the hips and pelvis. Chronic degene rative changes noted. Patient is unable to bear weight or walk around without significant pain. She does not feel safe to go home. Labs otherwise unremarkable. Patient will be admitted for symptomatic control and observation and possible placement. No other acute concerns or issues no this time. Hospitalist was contacted no other recommendations at this point. Patient is otherwise stable to time of admission.
[2018-04-22 20:55] LABS: Basophils # 0.1 K/mcL (0.0-0.2); Basophils % 0.6 %; Eosinophils # 0.1 K/mcL (0.0-0.6); Eosinophils % 1.1 %; Hematocrit 40.5 % (35.3-44.9); Hemoglobin 13.2 g/dL (11.5-15.4); Immature Granulocytes % 0.9 % (0-4); Lymphocytes # 1.8 K/mcL (0.6-4.6); Mean Corpuscular HGB Conc 32.6 g/dL (31.6-35.5); Mean Corpuscular Hemoglobin 29.5 pg (28.0-33.3); Mean Corpuscular Volume 90.4 fL (83.0-100.0); Mean Platelet Volume 9.5 fL (9.4-12.4); Monocytes # 0.7 K/mcL (0.0-1.3); Monocytes % 8.2 %; Neutrophils # 6.1 K/mcL (1.6-8.9); Platelet Count 257 K/mcL (140-400); Red Blood Count 4.48 M/mcL (3.82-4.97); Red Cell Distribution Width 12.9 % (11.5-14.5); Segmented Neutrophils % 69.2 %
[2018-04-22 21:09] LABS: Bilirubin,Urine Negative (Negative); Blood,Urine Negative (Negative); Clarity,Urine Clear (Clear); Color,Urine Yellow (Yellow); Glucose,Urine (UA) Normal (Normal); Ketones,Urine Negative (Negative); Leukocyte Esterase,Urine Negative (Negative); Nitrite,Urine Negative (Negative); Protein,Urine Negative (Neg-Trace); Specific Gravity,Urine 1.017 (1.010-1.025); Urobilinogen,Urine Normal (Normal)
[2018-04-22 21:14] LABS: BUN/Creatinine Ratio 23 (6-26); Blood Urea Nitrogen 29 mg/dL (8-23); C-Reactive Protein < 5 mg/L (Less than 10); Calcium 9.1 mg/dL (8.6-10.3); Carbon Dioxide 28 mEq/L (23-29); Chloride 104 mEq/L (98-107); Glucose 153 mg/dL (70-105); Osmolality,Calculated 299 (280-300); Potassium 4.1 mEq/L (3.5-5.1); Sodium 140 mEq/L (136-145); eGFR For Non-African Americans 41 (> 60)
[2018-04-23] MEDS ORDERED: *HR* OxyCODONE/APAP 5/325 TABLET PO ONE (03:37)
[2018-04-23] MEDS ORDERED: *HR* HYDROcodone/Acet 5/325 mg TABLET PO PRN (06:26)
[2018-04-23] MEDS ORDERED: Naloxone 0.4 MG/ML INJ IVP PRN (06:26)
[2018-04-23] MEDS ORDERED: *HR* OxyCODONE Immed Rel 5 MG TABLET PO PRN (06:26)
[2018-04-23] MEDS ORDERED: *HR* Dextrose 50 % in Water (Syg) 50 ML SYRINGE IVP PRN (09:09)
[2018-04-23] MEDS ORDERED: Dextrose Gel 15 GM/37.5 ML TUBE PO PRN ×2 (09:09)
[2018-04-23] MEDS ORDERED: D5% in Water 1,000 ML IVC PRN (09:09)
--- NOTE | 2018-04-23 09:52 | Orthopedic Consult Note ---
Date of Encounter: 04/23/18 Time of Encounter: 09:52 Assessment and Plan (1) Pain of left lower extremity Current Visit: Yes Status: Acute Based off patients symptoms and lack of findings on xray and CT of hip, we will pursue further lumbar workup to rule out other nerve or soft tissue involvement. Will start pain control - Toradol x 3 doses - monitoring heart and kidney function, Flexeril 5mg BID, and continued pain medication. Start PT/OT. Stranding Machine Operator Helper consult. May consider placement. Encouraged ambulation. At this time, no concern for infection, fracture or trauma-related injury. Will continue to follow. (2) Inability to perform activities of daily living Current Visit: Yes Status: Acute History of Present Illness Chief complaint: Unable to ambulate HPI: Ms. Yo is a 82 year old female, reported to the ED today from home after 3-5 days of progressively worsening Left lower extremity pain, leading to an inability to ambulate. She admits to weeks of intermittent left groin pain, that Voltaren has been helping; however her pain started rapidly progressing over the more recent 3-5 days, and now pain is diffuse, along groin and greater trochanteric region. She also reports non-specific pain to left lower leg extremity that is intermittent in nature. She admits to new N/T to her toes. She also admits to a long history of intermittent lumbar back pain. Hx of CVA multiple years ago. She has no other joint pain. She has a history of stroke, affected her right hand only. No fall, trauma or injury to date. She lives at home alone, ambulates with a cane and uses a lift chair for assistance. No previous fracture known. Denies bowel or bladder dysfunction. Exam: Unable to ambulate or lift leg secondary to pain. Left hip: No obvious abnl, no swelling, erythema or ecchymosis noted. No abrasion Tenderness along left groin, greater trochanteric region. Diffuse tenderness along entire left lower extremity. No calf tenderness. ROM - limited secondary to pain Strength - limited secondary to pain NV - intact distally. Lumbar back Limited secondary to body habitus and patients inability to move. NV intact Past Med Surg Social Fam HX - Past Medical History Medical history: arthritis, CVA, hyperlipidemia, hypertension, renal disease, seizures, thyroid disease Additional medical history: epilepsy Psychiatric history: no psych history - Past Surgical History Surgical History: appendectomy, breast surgery, hysterectomy, pacemaker/AICD Additional surgical history: pacemaker 2018 - Social History Smoking Status: Never smoker Smokeless Tobacco Status: No Alcohol use: none Drug use: none - Family History Mother Living Status: Age at : 72 Cause of : heart Hx Family Cardiac Disorders: Yes (strokes,) Hx Family Cancer: Yes (ovarian) Hx Family Endocrine Disorder: Yes (diabetes) Father Living Status: Age at : 86 Cause of : cancer Hx Family Cancer: Yes (skin and unknown) Sister Living Status: Hx Family Cardiac Disorders: Yes (CHF) Hx Family Endocrine Disorder: Yes (diabetes) Medications and Allergies Acetaminophen [Tylenol] 650 mg PO Q6HR PRN 11/02/17 [History] Aspirin [Lo-Dose Aspirin EC] 81 mg PO DAILY 11/02/17 [History] Atorvastatin [Lipitor] 40 mg PO HS 11/02/17 [History] Calcifediol [Rayaldee] 30 mcg PO HS 11/02/17 [History] [place]-3 Fatty Acids [Fish Oil] 1,200 mg PO DAILY 11/02/17 [History] PHENobarbital [Phenobarbital] 60 mg PO BID 11/02/17 [History] carBAMazepine [Tegretol] 200 mg PO QID 11/02/17 [History] Allopurinol [Zyloprim 100 MG] 100 mg PO DAILY 12/21/17 [History] Cetirizine HCl [Zyrtec] 10 mg PO DAILY 12/21/17 [History] Furosemide [Lasix] 40 mg PO DAILY 12/21/17 [History] Lisinopril [Zestril] 5 mg PO DAILY #30 tablet 01/11/18 [Rx] Artificial Tears SOLN [Akwa Tears] 1 drop BOTH EYES BID 01/29/18 [History] Linagliptin [Tradjenta] 5 mg PO DAILY 01/29/18 [History] Allergy/AdvReac Type Severity Reaction Status Date / Time codeine Allergy Anaphylaxis Verified 11/02/17 08:25 diphenhydramine Allergy Hives Verified 11/02/17 08:25 [From Benadryl] morphine Allergy Anaphylaxis Verified 11/02/17 08:25 perfume Allergy Rash Verified 11/02/17 08:25 IV contrast Allergy Anaphylaxis Uncoded 08/09/18 08:25 All Systems Reviewed: The remainder of the systems were reviewed and are negative - Constitutional Constitutional: as per HPI, weakness, no fever(s), no frequent falls - Musculoskeletal Musculoskeletal: as per HPI, abnormal gait, back pain, limited range of motion, muscle weakness, numbness, radiating pain into limb Physical Exam - Constitutional Vitals: Temp Pulse Resp BP Pulse Ox 98.0 F 63 16 114/59 96 04/23/18 06:30 04/23/18 06:30 04/23/18 06:30 04/23/18 06:30 04/23/18 06:30 General appearance IM: cooperative, A&O X 3, obese, answers questions appropriately Results - Labs Result Diagrams: 04/22/18 20:44 04/22/18 20:44 Labs: Abnormal lab results ESR 48 mm/hr (0-15) H 04/22/18 20:44 BUN 29 mg/dL (8-23) H 04/22/18 20:44 Creatinine 1.25 mg/dL (0.60-1.20) H 04/22/18 20:44 Est GFR ( Amer) 50 (> 60) L 04/22/18 20:44 Est GFR (Non-Af Amer) 41 (> 60) L 04/22/18 20:44 Glucose 153 mg/dL (70-105) H 04/22/18 20:44 H & H 04/22/18 Range/Units 20:44 Hgb 13.2 (11.5-15.4) g/dL Hct 40.5 (35.3-44.9) % All other labs normal. - Diagnostic results Hip x-ray: report reviewed, image reviewed Hip CT: report reviewed, image reviewed Consult Discharge Plan - Plan Referrals: NONE,PCP [Primary Care Provider] -
[2018-04-23] MEDS: *HR* OxyCODONE/APAP 5/325 TABLET PO PRN ×2 (10:00→16:03)
[2018-04-23] MEDS ORDERED: Acetaminophen 325 MG TABLET PO PRN (10:08)
[2018-04-23 10:38] LABS: Estimated Average Glucose 140 mg/dl; Hemoglobin A1C 6.5 %
[2018-04-23] MEDS: Insulin LISPRO 300 UNITS/3 ML VIAL SQ SCH ×4 (11:23→16:04)
[2018-04-23] MEDS: Loratadine 10 MG TABLET PO SCH (12:45)
[2018-04-23] MEDS: carBAMazepine 200 MG TABLET PO SCH ×3 (12:45→21:18)
[2018-04-23] MEDS: Aspirin Enteric Coated 81 MG Tablet PO SCH (12:45)
[2018-04-23] MEDS: Furosemide 40 MG TABLET PO SCH (12:46)
[2018-04-23] MEDS: Artificial Tears SOLN 15 ML BOTTLE BOTH EYES SCH ×2 (12:49→21:21)
[2018-04-23] MEDS: *HR* Heparin 5,000 UNIT/ML VIAL SQ SCH (17:41)
[2018-04-23] MEDS ORDERED: Ketorolac 15 MG/ML VIAL IVP PRN (18:00)
--- NOTE | 2018-04-23 20:09 | Internal Med History&Physical ---
Date of Encounter: 04/23/18 Time of Encounter: 15:00 Internal Medicine - H&P: HPI Chief complaint: Left leg pain; mostly in the area of left hip. Inability to perform activi Admitted From: Home Plans for Post Hospital Care: Home History of present illness: The patient is an 82 year old woman. She has had progressing care pain in her left leg (mostly in the area of left hip) for the last diffuse last several weeks. The pain is related to weightbearing. It bothers her very little at rest in bed. She has not been able to ambulate at all since yesterday afternoon (due to severe pain). PAST MEDICAL HX: She has had long-standing Type 2 diabetes mellitus and hypertension with CKD stage III. About one year ago she was diagnosed with myocardial infarction; developed a CVA, when treated for the AL. She may have her CHF; taking Lasix on daily basis. She is treated for hypothyroidism, hyperlipidemia and seizure disorder. She had a few surgeries including hysterectomy, some breast surgery (likely lumpectomy), appendectomy and pacemaker/AICD insertion. PAST FAMILY HX: See below PAST SOCIAL HX: There is no history of tobacco, alcohol and illicit drug use. REVIEW OF SYSTEMS: All 14 organ systems were reviewed by me with the patient. Positive and pertinent negative findings are listed above. The rest of organ systems is negative. PHYSICAL EXAM: Skin: Free of rash and discoloration. Musculoskeletal: I could not check her active movements in her left hip due to pain in that area. There is some tenderness in the area of left groin. Eyes: Sclera is white. There is no discharge from eyes. ENMT: Oral/pharyngeal mucosa is normal in appearance. There is no discharge from nose or ears. Respiratory: Normal breath sounds with no crackles and wheezes bilaterally. CV: Heart is regular with no gallop or murmur. GI: Abdomen is flat and soft with no palpable mass or visceromegaly. : There is no tenderness in patient's flanks bilaterally. Neuro exam: He has good strength in upper and lower extremities. He has normal eye movements. Psychiatric: He has normal affect. His thought process is appropriate to the situation. ADDITIONAL DATA: X-rays of hips and CT of her pelvis (including hips) show severe DJD in the right hip and very minor changes in the left hip. CBC is normal. BMP shows normal electrolytes and creatinine of 1.25 (with GFR of 41). She has normal urine. A/P: Severe left hip pain (at weightbearing) with inability to continue activities of daily living. We asked orthopedic surgery to help me in managing this patient. MRI of left hip and lumbar spine have been ordered. The patient will receive when necessary Percocet (she claims that that heat helps her the most her). Will ask physical therapy to help with this patient with ambulation. 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 I will keep her on diabetic diet and when necessary Humalog. She may also benefit from scheduled Levemir. 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 To continue lisinopril. Seizure disorder. Under control. To continue Tegretol and phenobarbital. Past Med Surg Social Fam HX - Past Medical History Medical history: arthritis, CVA, hyperlipidemia, hypertension, renal disease, seizures, thyroid disease Additional medical history: epilepsy Psychiatric history: no psych history - Past Surgical History Surgical History: appendectomy, breast surgery, hysterectomy, pacemaker/AICD Additional surgical history: pacemaker 2018 - Social History Smoking Status: Never smoker Smokeless Tobacco Status: No Alcohol use: none Drug use: none - Family History Mother Living Status: Age at : 72 Cause of : heart Hx Family Cardiac Disorders: Yes (strokes,) Hx Family Cancer: Yes (ovarian) Hx Family Endocrine Disorder: Yes (diabetes) Father Living Status: Age at : 86 Cause of : cancer Hx Family Cancer: Yes (skin and unknown) Sister Living Status: Hx Family Cardiac Disorders: Yes (CHF) Hx Family Endocrine Disorder: Yes (diabetes) Internal Medicine - H&P: Meds Acetaminophen [Tylenol] 650 mg PO Q6HR PRN 11/02/17 [History] Aspirin [Lo-Dose Aspirin EC] 81 mg PO DAILY 11/02/17 [History] Atorvastatin [Lipitor] 40 mg PO HS 11/02/17 [History] Calcifediol [Rayaldee] 30 mcg PO HS 11/02/17 [History] [place]-3 Fatty Acids [Fish Oil] 1,200 mg PO DAILY 11/02/17 [History] PHENobarbital [Phenobarbital] 60 mg PO BID 11/02/17 [History] carBAMazepine [Tegretol] 200 mg PO QID 11/02/17 [History] Allopurinol [Zyloprim 100 MG] 100 mg PO DAILY 12/21/17 [History] Cetirizine HCl [Zyrtec] 10 mg PO DAILY 12/21/17 [History] Furosemide [Lasix] 40 mg PO DAILY 12/21/17 [History] Lisinopril [Zestril] 5 mg PO DAILY #30 tablet 01/11/18 [Rx] Artificial Tears SOLN [Akwa Tears] 1 drop BOTH EYES BID 01/29/18 [History] Linagliptin [Tradjenta] 5 mg PO DAILY 01/29/18 [History] Allergy/AdvReac Type Severity Reaction Status Date / Time codeine Allergy Anaphylaxis Verified 11/02/17 08:25 diphenhydramine Allergy Hives Verified 11/02/17 08:25 [From Benadryl] morphine Allergy Anaphylaxis Verified 11/02/17 08:25 perfume Allergy Rash Verified 11/02/17 08:25 IV contrast Allergy Anaphylaxis Uncoded 11/02/17 08:25 - Constitutional Vitals: Temp Pulse Resp BP Pulse Ox 98.5 F 84 18 145/72 95 04/23/18 19:23 04/23/18 19:23 04/23/18 19:23 04/23/18 19:23 04/23/18 19:23 General appearance: Present: A&O X 3, pleasant, no acute distress, answers questions appropriately Exam: xx Internal Med - H&P Results - Labs CBC & Chem 7: 04/22/18 20:44 04/22/18 20:44 Labs: Short CBC 04/22/18 Range/Units 20:44 WBC 8.9 (4.3-11.1) K/mcL Hgb 13.2 (11.5-15.4) g/dL Hct 40.5 (35.3-44.9) % Plt Count 257 (140-400) K/mcL Neutrophils # 6.1 (1.6-8.9) K/mcL BMP 04/22/18 20:44 Sodium 140 Potassium 4.1 Chloride 104 Carbon Dioxide 28 BUN 29 H Creatinine 1.25 H Glucose 153 H Calcium 9.1 Urine 04/22/18 Range/Units 21:01 Urine Color Yellow (Yellow) Urine Clarity Clear (Clear) Urine pH 6.0 (5.0-8.0) pH Units Ur Specific [place] 1.017 (1.010-1.025) Urine Protein Negative (Neg-Trace) mg/dL Urine Glucose (UA) Normal (Normal) mg/dL - Impressions ITS Impressions Pelvis CT 04/22/18 19:16 IMPRESSION: Severe asymmetric right hip osteoarthritis with severe superior joint space loss, extensive subchondral changes with large subchondral degenerative cysts. No acute fracture or dislocation. Multilevel lower lumbar spine disc degenerative changes with vacuum disc phenomenon. D/ / 04/22/2018 20:09:57 Reza Caba MD / Karie Mason Interpreting Provider: Reza Caba MD Hip X-Ray 04/23/18 09:48 IMPRESSION: Mild left hip joint space narrowing. Severe right hip osteoarthritis. D/ / 04/23/2018 12:53:31 Kal Valencia MD / fredy Interpreting Provider: Kal Valencia MD Hip X-Ray 04/23/18 16:42 IMPRESSION: 1. No radiographic abnormality in the left hip. 2. Moderate right hip osteoarthritis suspected. D/ / 04/23/2018 18:48:41 Catracho Chu MD / fredy Interpreting Provider: Catracho Chu MD - Assessment and plan (1) Left hip pain Current Visit: Yes Status: Acute (2) Inability to perform activities of daily living Current Visit: Yes Status: Acute (3) Type 2 diabetes mellitus Current Visit: Yes Status: Chronic Qualifiers: Diabetes mellitus terminal carman insulin use: with fci use Diabetes mellitus complication status: with kidney complications Diabetes mellitus complication detail: with chronic kidney disease Chronic kidney disease stage: stage 3 (moderate) Qualified Code(s): E11.22 - Type 2 diabetes mellitus with diabetic chronic kidney disease; N18.3 - Chronic kidney disease, stage 3 (moderate); Z79.4 - halfway (current) use of insulin (4) Hypertensive renal disease with renal failure Current Visit: Yes Status: Chronic (5) Seizure disorder Current Visit: Yes Status: Chronic - Time Spent With Patient Total time spent is greater than 50% in coordination of care (as documented) at patient's floor/unit and/or counseling patient: - VTE Deep Vein Thrombosis/Pulmonary Embolism Present on Admission: No
[2018-04-23] MEDS ORDERED: Insulin DETEMIR 100 UNIT/ML X5UNITS SQ SCH (21:00)
[2018-04-23] MEDS ORDERED: Insulin LISPRO 300 UNITS/3 ML VIAL SQ SCH (21:00)
[2018-04-24] MEDS: *HR* Heparin 5,000 UNIT/ML VIAL SQ SCH ×2 (05:21→17:49)
[2018-04-24] MEDS: Aspirin Enteric Coated 81 MG Tablet PO SCH (08:00)
[2018-04-24] MEDS: Loratadine 10 MG TABLET PO SCH (08:01)
[2018-04-24] MEDS: Insulin LISPRO 300 UNITS/3 ML VIAL SQ SCH ×2 (08:01→08:02)
[2018-04-24] MEDS: Furosemide 40 MG TABLET PO SCH (08:01)
[2018-04-24] MEDS: carBAMazepine 200 MG TABLET PO SCH ×4 (08:01→21:49)
[2018-04-24] MEDS ORDERED: (Omega-3 Fatty Acids [Fish Oil] 1,200 MG) PO SCH (09:00)
[2018-04-24] MEDS: Artificial Tears SOLN 15 ML BOTTLE BOTH EYES SCH ×2 (09:02→22:03)
[2018-04-24 10:20] LABS: BUN/Creatinine Ratio 26 (6-26); Blood Urea Nitrogen 27 mg/dL (8-23); Calcium 8.7 mg/dL (8.6-10.3); Carbon Dioxide 30 mEq/L (23-29); Chloride 103 mEq/L (98-107); Glucose 153 mg/dL (70-105); Osmolality,Calculated 294 (280-300); Potassium 4.1 mEq/L (3.5-5.1); Sodium 138 mEq/L (136-145); eGFR For Non-African Americans 52 (> 60)
[2018-04-24] MEDS: *HR* OxyCODONE/APAP 5/325 TABLET PO PRN (14:29)
--- NOTE | 2018-04-24 16:36 | Orthopedics Progress Note ---
Date of Encounter: 04/24/18 Time of Encounter: 16:33 - Assessment and Plan (1) Pain of left lower extremity Current Visit: Yes Status: Acute Patient seen today - Hospital Day #2 Patient comfortable in chair, reports improvement with pain to left leg and hip. She has participated with PT/OT but still unsteady with more pain that she wants. She feels Lidoderm patch has helped, received 1 dose of Toradol. She will get MR of lumbar spine and hip tomorrow with monitoring of her pacemaker. If normal, will plan to follow up outpatient with sports medicine for follow up. (2) Inability to perform activities of daily living Current Visit: Yes Status: Acute Subjective Principal diagnosis: Left Lower leg pain Interval history: Patient seen today - Hospital Day #2 Patient comfortable in chair, reports improvement with pain to left leg and hip. She has participated with PT/OT but still unsteady with more pain that she wants. She feels Lidoderm patch has helped, received 1 dose of Toradol. She will get MR of lumbar spine and hip tomorrow with monitoring of her pacemaker. Objective Vital signs: Vital Signs Temp Pulse Resp BP Pulse Ox 04/24/18 15:09 98.4 F 79 16 119/69 95 04/24/18 11:54 98.0 F 79 16 128/69 95 04/24/18 07:20 97.4 F L 69 20 131/75 94 04/24/18 04:40 98.0 F 81 16 125/71 94 04/23/18 19:23 98.5 F 84 18 145/72 95 Intake and Output 04/24/18 04/24/18 04/24/18 07:59 15:59 23:59 Intake Total 0 / 0 Output Total 0 / 0 550 / 550 Balance 0 / 0 -550 / -550 Intake: Oral 0 / 0 Output: Urine 0 / 0 550 / 550 Other: # Voids 1 Weight 96.5 kg Patient Weight 04/24/18 23:59 Weight 96.5 kg - Labs CBC & BMP: 04/22/18 20:44 04/24/18 09:40 Labs: Abnormal lab results ESR 48 mm/hr (0-15) H 04/22/18 20:44 Carbon Dioxide 30 mEq/L (23-29) H 04/24/18 09:40 BUN 27 mg/dL (8-23) H 04/24/18 09:40 Est GFR (Non-Af Amer) 52 (> 60) L 04/24/18 09:40 Glucose 153 mg/dL (70-105) H 04/24/18 09:40 POC Glucose 142 mg/dL (70-99) H 04/23/18 11:12 Hemoglobin A1c 6.5 % (-5.6) H 04/22/18 20:44 - VTE Deep Vein Thrombosis/Pulmonary Embolism Present on Admission: No Consult Discharge Plan - Plan Referrals: NONE,PCP [Primary Care Provider] -
--- NOTE | 2018-04-24 17:27 | Internal Med Progress Note ---
Hospitalist Progress Note - Encounter Date of Encounter: 04/24/18 Time of Encounter: 17:30 - Subjective Interval History: Seen and examined at bedside. Patient is new to me, information obtained from chart review and patient report. Still complaining of severe left leg pain. Denied injury or trauma. Says she is unable to bear weight or lift left leg. - Exam Vitals: Temp Pulse Resp BP Pulse Ox 98.4 F 79 16 119/69 95 04/24/18 15:09 04/24/18 15:09 04/24/18 15:09 04/24/18 15:09 04/24/18 15:09 Exam: General appearance: Present: A&O X 3, pleasant, no acute distress - Head Head exam: Present: atraumatic, normocephalic - Eye Eye exam: Present: PERRL, conjuntiva pink, sclera anicteric Pupils: Present: PERRL - Neck Neck exam general surgery: Present: supple, trachea midline. Absent: lymphadenopathy - Respiratory Respiratory exam: Present: chest wall tenderness, CTAB. Absent: accessory muscle use, rales, rhonchi, wheezes - Cardiovascular Cardiovascular exam: Present: RRR, +S1, +S2. Absent: diastolic murmur, gallop, rubs, systolic murmur - GI/Abdominal GI/Abdominal exam: Present: normal bowel sounds, soft, no peritoneal signs. Absent: distended, tenderness - Extremities Exam Extremities exam: Present: warm, radial pulses palpable and symmetrical. + tenderness to left thigh area. Absent: calf tenderness, cyanotic, pedal edema - Neurological Exam Neurological exam: Present: CN II-XII intact, oriented X3, no focal deficits. Absent: pronater drift, facial droop, speech deficit - Skin Skin exam: Present: dry, intact - Assessment and Plan (1) Left hip pain Current Visit: Yes Status: Acute Assessment and Plan: presented with severe left hip pain and inability to bear weight on left leg. Denied trauma, no injury. No numbness or tingling or bladder incontinence. Etiology unknown at this time. Left hip X-ray unremarkable. Unable to participate in therapy as she says she cannot bear weight. MRI pending. Ortho following (2) Type 2 diabetes mellitus Current Visit: Yes Status: Chronic Assessment and Plan: per hx. Hgb A1c 6.5%. On Tradjenta at home which is nonformulary. Patient refusing insulin and Accu-Cheks. Monitor glucose on chemistry (3) Hypertensive renal disease with renal failure Current Visit: Yes Status: Chronic Assessment and Plan: per hx. BP controlled. Cont home BP medication. Monitor BP and titrate PRN (4) Seizure disorder Current Visit: Yes Status: Chronic Assessment and Plan: per hx. Cont home AEDs, seizure precautions (5) DVT prophylaxis Current Visit: Yes Status: Acute Assessment and Plan: heparin - Time Spent with Patient Total time spent is greater than 50% in coordination of care (as documented) at patient's floor/unit and/or counseling patient: Internal Medicine: Result - Labs CBC & Chem 7: 04/22/18 20:44 04/24/18 09:40 Labs: BMP 04/24/18 09:40 Sodium 138 Potassium 4.1 Chloride 103 Carbon Dioxide 30 H BUN 27 H Creatinine 1.03 Glucose 153 H Calcium 8.7 - Impressions Impressions Hip X-Ray 04/23/18 16:42 IMPRESSION: 1. No radiographic abnormality in the left hip. 2. Moderate right hip osteoarthritis suspected. D/ : / 04/23/2018 18:48:41 Catracho Chu MD / [email or web address] Interpreting Provider: Catracho Chu MD - VTE Deep Vein Thrombosis/Pulmonary Embolism Present on Admission: No Consult Discharge Plan - Plan Referrals: NONE,PCP [Primary Care Provider] - (2) Type 2 diabetes mellitus Qualifiers: Diabetes mellitus chcf insulin use: with terminal supervisor use Diabetes mellitus complication status: with kidney complications Diabetes mellitus complication detail: with chronic kidney disease Chronic kidney disease stage: stage 3 (moderate) Qualified Code(s): E11.22 - Type 2 diabetes mellitus with diabetic chronic kidney disease; N18.3 - Chronic kidney disease, stage 3 (moderate); Z79.4 - keno terminal operator (current) use of insulin
[2018-04-25] MEDS: Acetaminophen 325 MG TABLET PO PRN (02:09)
[2018-04-25] MEDS: *HR* OxyCODONE/APAP 5/325 TABLET PO PRN ×3 (04:57→20:48)
[2018-04-25] MEDS: *HR* Heparin 5,000 UNIT/ML VIAL SQ SCH ×2 (05:00→17:06)
[2018-04-25 06:36] LABS: Hemoglobin 11.8 g/dL (11.5-15.4); Mean Corpuscular HGB Conc 32.8 g/dL (31.6-35.5); Mean Corpuscular Hemoglobin 29.6 pg (28.0-33.3); Mean Corpuscular Volume 90.2 fL (83.0-100.0); Mean Platelet Volume 10.1 fL (9.4-12.4); Platelet Count 228 K/mcL (140-400); Red Blood Count 3.99 M/mcL (3.82-4.97); Red Cell Distribution Width 12.7 % (11.5-14.5)
[2018-04-25 06:58] LABS: Potassium 4.2 mEq/L (3.5-5.1)
[2018-04-25 06:59] LABS: Albumin 3.5 g/dL (3.5-5.7); Albumin/Globulin Ratio 1.2 (1.1-2.2); Bilirubin,Total 0.2 mg/dL (0.3-1.0); Calcium 8.9 mg/dL (8.6-10.3); Globulin 2.9 g/dL (2.4-3.5); Total Protein 6.4 g/dL (6.4-8.9)
[2018-04-25] MEDS: Loratadine 10 MG TABLET PO SCH (08:23)
[2018-04-25] MEDS: Furosemide 40 MG TABLET PO SCH (08:23)
[2018-04-25] MEDS: carBAMazepine 200 MG TABLET PO SCH ×4 (08:23→20:48)
[2018-04-25] MEDS: Aspirin Enteric Coated 81 MG Tablet PO SCH (08:23)
[2018-04-25] MEDS: Artificial Tears SOLN 15 ML BOTTLE BOTH EYES SCH ×2 (08:27→20:49)
--- NOTE | 2018-04-25 11:27 | Orthopedics Progress Note ---
Date of Encounter: 04/25/18 Time of Encounter: 11:27 - Assessment and Plan (1) Pain of left lower extremity Current Visit: Yes Status: Acute (2) Nontraumatic rupture of muscle Current Visit: Yes Status: Acute New Iliopsoas muscle rupture with notable edema based off MRI findings. Continue with conservative management. ICE daily, gentle Hip ROM exercises. Stable for D/C today to [facility]CF Topical antiinflammatories as needed. Continue Lidoderm patch. WBAT with assistance. Follow up with sports medicine in 2 weeks for management. No surgical intervention indicated. (3) Degenerative joint disease (DJD) of lumbar spine Current Visit: No Status: Chronic No acute surgical intervention needed at this time. Recommended topical NSAIDS, PT/OT. Will set up follow up with interventional pain for potential injections in 2-4 weeks. Qualifiers: Spinal osteoarthritis complication: unspecified spinal osteoarthritis Qualified Code(s): M47.816 - Spondylosis without myelopathy or radiculopathy, lumbar region Subjective Principal diagnosis: Left Lower leg pain Interval history: Patient seen today - Hospital Day #3 Patient standing at bedside, reports improvement with pain to left leg and hip. She has participated with PT/OT but still unsteady with more pain that she wants. She feels Lidoderm patch has helped, received 1 dose of Toradol. MR spine and hip reviewed: Impressions Hip MRI 04/25/18 09:30 IMPRESSION: Full-thickness tear of the distal myotendinous junction of the iliopsoas tendon with retraction of tendon fibers, extensive surrounding soft tissue edema, fluid and hemorrhage. Tear is new since CT of 04/22/2018. Moderate gluteus medius tendinosis with mild greater trochanteric bursitis. No evidence of acute fracture or dislocation of the left hip. No evidence of left hip joint effusion. Severe right hip osteoarthritis. The findings were sent to the [facility] at 11:12 am on 04/25/2018to be communicated to a licensed caregiver. D/ / 04/25/2018 11:22:29 Reza Caba MD / jose f Interpreting Provider: Reza Caba MD Lumbar Spine MRI 04/25/18 09:30 IMPRESSION: 1. [id number] spinal canal stenosis at L2-L3 with minimal stenosis at L3-L4 at L4-L5. 2. Degenerative changes contribute to neural foraminal narrowing as above. 3. Minimal retrolisthesis at L5-S1. 4. Disc desiccation with endplate irregularity as well as type 2 degenerative endplate change at L2-L3, L4-L5 and L5-S1. D/ / Ho Mendez MD / Ho Mendez MD Interpreting Provider: Ho Mendez MD Objective Vital signs: Vital Signs Temp Pulse Resp BP Pulse Ox 04/25/18 07:37 98.6 F 100 16 118/75 94 04/25/18 03:11 97.8 F 70 15 132/70 95 04/24/18 18:41 98.1 F 75 16 151/81 95 04/24/18 15:09 98.4 F 79 16 119/69 95 04/24/18 11:54 98.0 F 79 16 128/69 95 Intake and Output 04/24/18 04/25/18 04/25/18 23:59 07:59 15:59 Intake Total 360 / 360 120 / 120 120 / 120 Output Total 0 / 0 Balance 360 / 360 120 / 120 120 / 120 Intake: Oral 360 / 360 120 / 120 120 / 120 Output: Urine 0 / 0 Other: Meal Dinner Breakfast Percent of Meal Consumed 100% 100% # Voids 1 1 Weight 96.6 kg Patient Weight 04/25/18 23:59 Weight 96.6 kg - Diagnostic Results Hip MRI: report reviewed, image reviewed - Labs CBC & BMP: 04/25/18 05:46 04/25/18 05:46 Labs: Abnormal lab results ESR 48 mm/hr (0-15) H 04/22/18 20:44 BUN 32 mg/dL (8-23) H 04/25/18 05:46 Est GFR ( Amer) 57 (> 60) L 04/25/18 05:46 Est GFR (Non-Af Amer) 47 (> 60) L 04/25/18 05:46 BUN/Creatinine Ratio 29 (6-26) H 04/25/18 05:46 Glucose 177 mg/dL (70-105) H 04/25/18 05:46 POC Glucose 156 mg/dL (70-99) H 04/23/18 20:46 Hemoglobin A1c 6.5 % (-5.6) H 04/22/18 20:44 Total Bilirubin 0.2 mg/dL (0.3-1.0) L 04/25/18 05:46 Alkaline Phosphatase 144 Units/L (34-104) H 04/25/18 05:46 - VTE Deep Vein Thrombosis/Pulmonary Embolism Present on Admission: No Consult Discharge Plan - Plan Referrals: Amrik Salazar DO [Partnered Physician] - 05/08/18 1:00 pm
--- NOTE | 2018-04-25 17:39 | Internal Med Progress Note ---
Hospitalist Progress Note - Encounter Date of Encounter: 04/25/18 Time of Encounter: 11:00 - Subjective Interval History: Patient is a 82-year-old female who presents with left leg pain and on MRI was found to have full-thickness tear of the distal myotendinous junction of the iliopsoas tendon with retraction of tendon fibers, extensive surrounding soft tissue edema, fluid and hemorrhage. - Exam Vitals: Temp Pulse Resp BP Pulse Ox 97.8 F 66 18 122/69 96 04/25/18 16:42 04/25/18 16:42 04/25/18 16:42 04/25/18 16:42 04/25/18 16:42 Exam: Gen.: Nonacute distress, alert and oriented 3 ENT: Mucosal membranes moist Respiratory: Lungs are clear to auscultation bilaterally without any wheezing rhonchi or rales Cardiovascular: Normal S1 and S2 regular rate rhythm no murmurs rubs or gallops Abdomen: Soft, nontender and nondistended with positive bowel sounds Extremities: No lower extremity edema Skin: Normal color - Assessment and Plan (1) Iliopsoas muscle hematoma Current Visit: Yes Status: Acute Assessment and Plan: Patient presents with left leg pain and on MRI was found to have full-thickness tear of the distal myotendinous junction of the iliopsoas tendon with retraction of tendon fibers, extensive surrounding soft tissue edema, fluid and hemorrhage. Orthopedics with recommendations for conservative management Patient [facility] be [facility] for strengthening rehabilitation. (2) Type 2 diabetes mellitus Current Visit: Yes Status: Chronic Assessment and Plan: Continue home medications (3) Hypertensive renal disease with renal failure Current Visit: Yes Status: Chronic Assessment and Plan: Continue home medications (4) Seizure disorder Current Visit: Yes Status: Chronic Assessment and Plan: Continue home medications DVT Prophylaxis: Heparin subcutaneous - Time Spent with Patient Total time spent is greater than 50% in coordination of care (as documented) at patient's floor/unit and/or counseling patient: Internal Medicine: Result - Labs CBC & Chem 7: 04/25/18 05:46 04/25/18 05:46 Labs: Short CBC 04/25/18 Range/Units 05:46 WBC 8.9 (4.3-11.1) K/mcL Hgb 11.8 (11.5-15.4) g/dL Hct 36.0 (35.3-44.9) % Plt Count 228 (140-400) K/mcL BMP 04/25/18 05:46 Sodium 137 Potassium 4.2 Chloride 102 Carbon Dioxide 27 BUN 32 H Creatinine 1.11 Glucose 177 H Calcium 8.9 Liver Function 04/25/18 Range/Units 05:46 Total Bilirubin 0.2 L (0.3-1.0) mg/dL AST 16 (13-39) Units/L ALT 13 (7-52) Units/L Alkaline Phosphatase 144 H (34-104) Units/L Albumin 3.5 (3.5-5.7) g/dL - Impressions Impressions Hip MRI 04/25/18 09:30 IMPRESSION: Full-thickness tear of the distal myotendinous junction of the iliopsoas tendon with retraction of tendon fibers, extensive surrounding soft tissue edema, fluid and hemorrhage. Tear is new since CT of 04/22/2018. Moderate gluteus medius tendinosis with mild greater trochanteric bursitis. No evidence of acute fracture or dislocation of the left hip. No evidence of left hip joint effusion. Severe right hip osteoarthritis. The findings were sent to the [facility] at 11:12 am on 04/25/2018to be communicated to a licensed caregiver. D/ / 04/25/2018 11:22:29 Reza Caba MD / jose f Interpreting Provider: Reza Caba MD Lumbar Spine MRI 04/25/18 09:30 IMPRESSION: 1. [id number] spinal canal stenosis at L2-L3 with minimal stenosis at L3-L4 at L4-L5. 2. Degenerative changes contribute to neural foraminal narrowing as above. 3. Minimal retrolisthesis at L5-S1. 4. Disc desiccation with endplate irregularity as well as type 2 degenerative endplate change at L2-L3, L4-L5 and L5-S1. D/ / Ho Mendez MD / Ho Mendez MD Interpreting Provider: Ho Mendez MD - VTE Deep Vein Thrombosis/Pulmonary Embolism Present on Admission: No Consult Discharge Plan - Plan Referrals: Amrik Salazar DO [Partnered Physician] - 05/08/18 1:00 pm (2) Type 2 diabetes mellitus Qualifiers: Diabetes mellitus penitentiary insulin use: with superintendent container terminal use Diabetes mellitus complication status: with kidney complications Diabetes mellitus complication detail: with chronic kidney disease Chronic kidney disease stage: stage 3 (moderate) Qualified Code(s): E11.22 - Type 2 diabetes mellitus with diabetic chronic kidney disease; N18.3 - Chronic kidney disease, stage 3 (moderate); Z79.4 - residential (current) use of insulin
[2018-04-26] MEDS: *HR* OxyCODONE/APAP 5/325 TABLET PO PRN ×2 (01:54→10:55)
[2018-04-26 05:00] LABS: Hematocrit 36.5 % (35.3-44.9); Hemoglobin 11.9 g/dL (11.5-15.4); Mean Corpuscular HGB Conc 32.6 g/dL (31.6-35.5); Mean Corpuscular Hemoglobin 29.3 pg (28.0-33.3); Mean Corpuscular Volume 89.9 fL (83.0-100.0); Mean Platelet Volume 9.8 fL (9.4-12.4); Platelet Count 240 K/mcL (140-400); Red Blood Count 4.06 M/mcL (3.82-4.97); Red Cell Distribution Width 12.9 % (11.5-14.5)
[2018-04-26] MEDS: *HR* Heparin 5,000 UNIT/ML VIAL SQ SCH ×2 (05:09→16:53)
[2018-04-26] MEDS: Acetaminophen 325 MG TABLET PO PRN (05:12)
[2018-04-26 05:22] LABS: Albumin 3.6 g/dL (3.5-5.7); Albumin/Globulin Ratio 1.2 (1.1-2.2); Bilirubin,Total 0.3 mg/dL (0.3-1.0); Calcium 8.8 mg/dL (8.6-10.3); Globulin 3.1 g/dL (2.4-3.5); Potassium 4.4 mEq/L (3.5-5.1); Total Protein 6.7 g/dL (6.4-8.9)
[2018-04-26] MEDS ORDERED: 0.9 % Sodium Chloride 1,000 ML IVC SCH (10:45)
[2018-04-26] MEDS: Aspirin Enteric Coated 81 MG Tablet PO SCH (10:56)
[2018-04-26] MEDS: Furosemide 40 MG TABLET PO SCH (10:56)
[2018-04-26] MEDS: Artificial Tears SOLN 15 ML BOTTLE BOTH EYES SCH (10:56)
[2018-04-26] MEDS: carBAMazepine 200 MG TABLET PO SCH ×3 (10:56→16:53)
[2018-04-26] MEDS: Loratadine 10 MG TABLET PO SCH (10:56)
--- NOTE | 2018-04-26 14:23 | Physician Discharge Referral ---
ExtendedCare Referral Info Institutional Level of Care: Skilled - Diagnosis (1) Iliopsoas muscle hematoma Status: Acute (2) Type 2 diabetes mellitus Status: Chronic (3) Hypertensive renal disease with renal failure Status: Chronic (4) Seizure disorder Status: Chronic - Transfer Medications Prescriptions: OxyCODONE/APAP 5/325 [Percocet 5/325 MG] 1 each PO Q8HR PRN 3 Days #9 tablet PRN Reason: moderate to severe pain Home Medications: Acetaminophen [Tylenol] 650 mg PO Q6HR PRN 11/02/17 [History] Aspirin [Lo-Dose Aspirin EC] 81 mg PO DAILY 11/02/17 [History] Atorvastatin [Lipitor] 40 mg PO HS 11/02/17 [History] Calcifediol [Rayaldee] 30 mcg PO HS 11/02/17 [History] [place]-3 Fatty Acids [Fish Oil] 1,200 mg PO DAILY 11/02/17 [History] PHENobarbital [Phenobarbital] 60 mg PO BID 11/02/17 [History] carBAMazepine [Tegretol] 200 mg PO QID 11/02/17 [History] Allopurinol [Zyloprim 100 MG] 100 mg PO DAILY 12/21/17 [History] Cetirizine HCl [Zyrtec] 10 mg PO DAILY 12/21/17 [History] Furosemide [Lasix] 40 mg PO DAILY 12/21/17 [History] Lisinopril [Zestril] 5 mg PO DAILY #30 tablet 01/11/18 [Rx] Artificial Tears SOLN [[place]wa Tears] 1 drop BOTH EYES BID 01/29/18 [History] Linagliptin [Tradjenta] 5 mg PO DAILY 01/29/18 [History] Lidocaine Patch [Lidoderm 5% patch] 1 each TP DAILY adh..patch 04/26/18 [Rx] OxyCODONE/APAP 5/325 [Percocet 5/325 MG] 1 each PO Q8HR PRN 3 Days #9 tablet 04/26/18 [Rx] Allergies/Adverse Reactions: Allergy/AdvReac Type Severity Reaction Status Date / Time codeine Allergy Anaphylaxis Verified 11/02/17 08:25 diphenhydramine Allergy Hives Verified 11/02/17 08:25 [From Benadryl] morphine Allergy Anaphylaxis Verified 11/02/17 08:25 perfume Allergy Rash Verified 11/02/17 08:25 IV contrast Allergy Anaphylaxis Uncoded 11/02/17 08:25 - Respiratory Orders Smoking Cessation: Smoking cessation has been advised. For more information, call the [place] Tobacco Quit Line at 0-260-KBHINOW. CERTIFICATION: I certify that the transfer of the above named patient to an Extended Care Facility is necessary for the continuing treatment of the diagnosis listed. The above information is true and accurate reflection of patient's current condition. Confidential - Redisclosure prohibited without a patient's written consent.
--- NOTE | 2018-04-26 14:23 | Discharge Summary ---
Orders not resulted at time of discharge: Pending orders 04/27/18 04:00 CMP [Comprehensive Metabolic Panel] AM 0400 Complete Blood Count w/o Diff [HEME] AM 04004/28/18 04:00 CMP [Comprehensive Metabolic Panel] AM 0400 Complete Blood Count w/o Diff [HEME] AM 0400 04/29/18 04:00 CMP [Comprehensive Metabolic Panel] AM 0400 Complete Blood Count w/o Diff [HEME] AM 0400 Date of Encounter: 04/26/18 Time of Encounter: 11:00 - Discharge Diagnosis (1) Iliopsoas muscle hematoma Priority: Primary Status: Acute Qualifiers: Laterality: unspecified laterality Qualified Code(s): S70.10XA - Contusion of unspecified thigh, initial encounter (2) Type 2 diabetes mellitus Priority: Secondary Status: Chronic Qualifiers: Diabetes mellitus terminal press operator insulin use: with snf use Diabetes mellitus complication status: with kidney complications Diabetes mellitus complication detail: with chronic kidney disease Chronic kidney disease stage: stage 3 (moderate) Qualified Code(s): E11.22 - Type 2 diabetes mellitus with diabetic chronic kidney disease; N18.3 - Chronic kidney disease, stage 3 (moderate); Z79.4 - alf (current) use of insulin (3) Hypertensive renal disease with renal failure Priority: Secondary Status: Chronic (4) Seizure disorder Priority: Secondary Status: Chronic Hospital course: Patient is a 82-year-old female with past medical history significant for diabetes, hypertension, seizure disorder and chronic kidney disease stage III who presents to the ER on 04/23/18 due to left leg pain. Patient reported of progressively worse left lower extremity pain for the last several weeks related to weightbearing. Patient was concerned she decided to ER for evaluation. The patient is an 82 year old woman. She has had progressing care pain in her left leg (mostly in the area of left hip) for the last diffuse last several weeks. The pain is related to weightbearing. It bothers her very little at rest in bed. She has not been able to ambulate at all since yesterday afternoon (due to severe pain). During patients hospital stay, MRI was done and patient was found to have full- thickness tear of the distal myotendinous junction of the iliopsoas tendon with retraction of tendon fibers, extensive surrounding soft tissue edema, fluid and hemorrhage. Orthopedics with recommendations for conservative management Patient will be discharged to intermediate facility for strengthening rehabilitation. - Time Spent with Patient Total time spent providing and/or coordinating discharge services: Less than 30 minutes - Discharge Medications Prescriptions: OxyCODONE/APAP 5/325 [Percocet 5/325 MG] 1 each PO Q8HR PRN 3 Days #9 tablet PRN Reason: moderate to severe pain Home Medications: Acetaminophen [Tylenol] 650 mg PO Q6HR PRN 11/02/17 [History] Aspirin [Lo-Dose Aspirin EC] 81 mg PO DAILY 11/02/17 [History] Atorvastatin [Lipitor] 40 mg PO HS 11/02/17 [History] Calcifediol [Rayaldee] 30 mcg PO HS 11/02/17 [History] [place]-3 Fatty Acids [Fish Oil] 1,200 mg PO DAILY 11/02/17 [History] PHENobarbital [Phenobarbital] 60 mg PO BID 11/02/17 [History] carBAMazepine [Tegretol] 200 mg PO QID 11/02/17 [History] Allopurinol [Zyloprim 100 MG] 100 mg PO DAILY 12/21/17 [History] Cetirizine HCl [Zyrtec] 10 mg PO DAILY 12/21/17 [History] Furosemide [Lasix] 40 mg PO DAILY 12/21/17 [History] Lisinopril [Zestril] 5 mg PO DAILY #30 tablet 01/11/18 [Rx] Artificial Tears SOLN [Akwa Tears] 1 drop BOTH EYES BID 01/29/18 [History] Linagliptin [Tradjenta] 5 mg PO DAILY 01/29/18 [History] Lidocaine Patch [Lidoderm 5% patch] 1 each TP DAILY adh..patch 04/26/18 [Rx] OxyCODONE/APAP 5/325 [Percocet 5/325 MG] 1 each PO Q8HR PRN 3 Days #9 tablet 04/26/18 [Rx] Allergies/Adverse Reactions: Allergy/AdvReac Type Severity Reaction Status Date / Time codeine Allergy Anaphylaxis Verified 11/02/17 08:25 diphenhydramine Allergy Hives Verified 11/02/17 08:25 [From Benadryl] morphine Allergy Anaphylaxis Verified 11/02/17 08:25 perfume Allergy Rash Verified 11/02/17 08:25 IV contrast Allergy Anaphylaxis Uncoded 11/02/17 08:25 Date of admission: 04/23/18 09:00 Primary care physician: PCP NONE Consults: 04/22/18 22:37 Consult to Reconciliation Manager [CONS] Routine Reason for SW Consult: may need EFC/PT/OT pending outcome of hip 04/23/18 06:27 Consult to Occupational Therapy [CONS] Routine Comment: Evaluate, develop and implement POC Reason for Consult: Left hip pain secondary to osteoarthritis, inability to ambulate, bear weight and decreased range of motion in the left lower extremity. Does patient have active BEDREST order?: No Is patient medically & hemodynamically stable?: Yes Consult to Physical Therapy [CONS] Routine Comment: Evaluate, develop and implement POC Reason for Consult: Left hip pain secondary to osteoarthritis, inability to ambulate, bear weight and decreased range of motion in the left lower extremity. Does patient have active BEDREST order?: No Is patient medically & hemodynamically stable?: Yes 04/23/18 08:57 Consult to Orthopedic Surgery [CONS] Routine Consulting Provider: [facility] Reason for Consult: SEVERE DJD OF LEFT HIP Time Notified: 08:55 Call Completed: Yes - Constitutional Vitals: Temp Pulse Resp BP Pulse Ox 98.0 F 74 16 115/66 97 04/26/18 10:06 04/26/18 10:06 04/26/18 10:06 04/26/18 10:06 04/26/18 10:06 General appearance: Present: A&O X 3, pleasant, no acute distress, answers questions appropriately Exam: Gen.: Nonacute distress, alert and oriented 3 Skin: Normal color - Patient Status Disposition: Transfer SNF Condition: Fair - Discharge Instructions Follow Up With: Amrik Salazar DO [Partnered Physician] - 05/08/18 1:00 pm - VTE Deep Vein Thrombosis/Pulmonary Embolism Present on Admission: No
[2018-04-26 14:58] VITALS: BP 147/76
== END 2018-04-26 19:05 | DRG 605 ==
LOC: EMEROOARM 19:03 → 3ANU 19:03 → SUATTDRO 21:41 → 3ANU 22:18 → SUATTDRO 04-23 09:00
PROVIDERS: ADMIT Family Medicine; ATTEND Hospitalist

== ENCOUNTER 2020-10-19 13:36 | Inpatient (IN) ==
[2020-10-19 14:42] LABS: Basophils # 0.1 K/mcL (0.0-0.2); Basophils % 0.7 %; Eosinophils # 0.1 K/mcL (0.0-0.6); Eosinophils % 1.4 %; Hematocrit 41.4 % (35.3-44.9); Hemoglobin 12.8 g/dL (11.5-15.4); Immature Granulocytes % 1.1 % (0-4); Lymphocytes # 2.2 K/mcL (0.6-4.6); Lymphocytes % 25.7 %; Mean Corpuscular HGB Conc 30.9 g/dL (31.6-35.5); Mean Corpuscular Hemoglobin 30.2 pg (28.0-33.3); Mean Corpuscular Volume 97.6 fL (83.0-100.0); Mean Platelet Volume 10.3 fL (9.4-12.4); Monocytes # 0.8 K/mcL (0.0-1.3); Neutrophils # 5.3 K/mcL (1.6-8.9); Platelet Count 240 K/mcL (140-400); Red Blood Count 4.24 M/mcL (3.82-4.97); Red Cell Distribution Width 13.3 % (11.5-14.5); Segmented Neutrophils % 62.1 %; White Blood Count 8.5 K/mcL (4.3-11.1)
[2020-10-19 16:05] LABS: BUN/Creatinine Ratio 32 (6-26); Blood Urea Nitrogen 53 mg/dL (8-23); Calcium 9.2 mg/dL (8.6-10.3); Carbon Dioxide 31 mEq/L (23-29); Chloride 98 mEq/L (98-107); Creatine Kinase 61 Units/L (30-223); Glucose 110 mg/dL (70-105); Osmolality,Calculated 297 (280-300); Potassium 5.1 mEq/L (3.5-5.1); Sodium 136 mEq/L (136-145); Troponin I < 0.03 ng/mL (< 0.04); eGFR For African Americans 35 (> 60); eGFR For Non-African Americans 29 (> 60)
[2020-10-19] MEDS ORDERED: carBAMazepine 200 MG TABLET PO ONE (17:24)
[2020-10-19] MEDS ORDERED: Naloxone 0.4 MG/ML INJ IVP PRN (17:32)
[2020-10-19] MEDS: *HR* Heparin 5,000 UNIT/ML VIAL SQ SCH (20:53)
[2020-10-19] MEDS: carBAMazepine 200 MG TABLET PO SCH (20:53)
[2020-10-19] MEDS ORDERED: PHENobarbital Elixir 20 MG/5 ML UDC PO SCH ×2 (21:00→21:15)
[2020-10-20] MEDS: Acetaminophen 325 MG TABLET PO PRN ×2 (01:27→08:13)
[2020-10-20 02:21] LABS: Basophils # 0.1 K/mcL (0.0-0.2); Basophils % 0.8 %; Eosinophils # 0.1 K/mcL (0.0-0.6); Eosinophils % 1.2 %; Hematocrit 36.5 % (35.3-44.9); Hemoglobin 11.5 g/dL (11.5-15.4); Immature Granulocytes % 1.2 % (0-4); Lymphocytes % 25.9 %; Mean Corpuscular HGB Conc 31.5 g/dL (31.6-35.5); Mean Corpuscular Hemoglobin 30.1 pg (28.0-33.3); Mean Corpuscular Volume 95.5 fL (83.0-100.0); Mean Platelet Volume 10.2 fL (9.4-12.4); Monocytes # 0.8 K/mcL (0.0-1.3); Monocytes % 10.4 %; Neutrophils # 4.7 K/mcL (1.6-8.9); Platelet Count 241 K/mcL (140-400); Red Blood Count 3.82 M/mcL (3.82-4.97); Red Cell Distribution Width 13.2 % (11.5-14.5); Segmented Neutrophils % 60.5 %; White Blood Count 7.7 K/mcL (4.3-11.1)
[2020-10-20 02:40] LABS: Albumin 3.8 g/dL (3.5-5.7); Albumin/Globulin Ratio 1.4 (1.1-2.2); Bilirubin,Total 0.3 mg/dL (0.3-1.0); Calcium 9.1 mg/dL (8.6-10.3); Globulin 2.8 g/dL (2.4-3.5); Phosphorous 3.7 mg/dL (2.7-4.5); Potassium 4.3 mEq/L (3.5-5.1); Total Protein 6.6 g/dL (6.4-8.9)
[2020-10-20] MEDS: *HR* Heparin 5,000 UNIT/ML VIAL SQ SCH ×3 (05:20→20:52)
[2020-10-20] MEDS: carBAMazepine 200 MG TABLET PO SCH ×4 (08:13→20:50)
[2020-10-20] MEDS: PHENobarbital Elixir 20 MG/5 ML UDC PO SCH ×2 (08:31→20:50)
[2020-10-20] MEDS ORDERED: Artificial Tears SOLN 15 ML BOTTLE BOTH EYES PRN (09:17)
[2020-10-20] MEDS ORDERED: Trolamine Salicylate/Aloe Vera 85 APPL/85 GM TUBE TP PRN (10:35)
[2020-10-20] MEDS ORDERED: Methyl Salicylate/Menthol 85 APPL/85 GM TUBE TP PRN (10:43)
[2020-10-20] MEDS: Aspirin 81 MG TAB.CHEW PO SCH (11:07)
[2020-10-20] MEDS ORDERED: Sennosides/Docusate Sodium TABLET PO PRN (16:54)
[2020-10-20] MEDS: Calcifediol [Rayaldee] 30 MCG Cap.Sa.24h PO SCH (17:07)
[2020-10-20] MEDS: Furosemide 40 MG TABLET PO SCH (20:50)
[2020-10-21] MEDS: *HR* Heparin 5,000 UNIT/ML VIAL SQ SCH ×3 (04:34→20:34)
[2020-10-21] MEDS: Levothyroxine 25 MCG TABLET PO SCH (04:34)
[2020-10-21 04:45] LABS: Albumin 3.9 g/dL (3.5-5.7); Albumin/Globulin Ratio 1.4 (1.1-2.2); Bilirubin,Total 0.2 mg/dL (0.3-1.0); Calcium 8.9 mg/dL (8.6-10.3); Globulin 2.8 g/dL (2.4-3.5); Potassium 4.3 mEq/L (3.5-5.1); Total Protein 6.7 g/dL (6.4-8.9)
[2020-10-21 04:59] LABS: Hematocrit 36.9 % (35.3-44.9); Mean Corpuscular HGB Conc 32.5 g/dL (31.6-35.5); Mean Corpuscular Hemoglobin 31.4 pg (28.0-33.3); Mean Corpuscular Volume 96.6 fL (83.0-100.0); Mean Platelet Volume 10.3 fL (9.4-12.4); Platelet Count 239 K/mcL (140-400); Red Blood Count 3.82 M/mcL (3.82-4.97); Red Cell Distribution Width 13.3 % (11.5-14.5); White Blood Count 8.5 K/mcL (4.3-11.1)
[2020-10-21] MEDS: lisinopriL 20 MG TABLET PO SCH (08:33)
[2020-10-21] MEDS: Aspirin 81 MG TAB.CHEW PO SCH (08:33)
[2020-10-21] MEDS: Furosemide 40 MG TABLET PO SCH ×2 (08:33→20:33)
[2020-10-21] MEDS: carBAMazepine 200 MG TABLET PO SCH ×4 (08:34→20:33)
[2020-10-21] MEDS: PHENobarbital Elixir 20 MG/5 ML UDC PO SCH ×2 (08:34→20:33)
[2020-10-21] MEDS: allopurinoL 100 MG TABLET PO SCH (08:34)
[2020-10-21] MEDS: Acetaminophen 325 MG TABLET PO PRN ×2 (11:32→20:49)
[2020-10-21] MEDS ORDERED: 0.9 % Sodium Chloride 500 ML IVC SCH (16:15)
[2020-10-21] MEDS: Calcifediol [Rayaldee] 30 MCG Cap.Sa.24h PO SCH (17:23)
[2020-10-22 05:37] LABS: Bilirubin,Urine Negative (Negative); Blood,Urine Negative (Negative); Clarity,Urine Clear (Clear); Color,Urine Light-Yellow (Yellow); Glucose,Urine (UA) Normal (Normal); Ketones,Urine Negative (Negative); Leukocyte Esterase,Urine Negative (Negative); Nitrite,Urine Negative (Negative); PH,Urine 5.5 pH Units (5.0-8.0); Protein,Urine Negative (Neg-Trace); Specific Gravity,Urine 1.014 (1.010-1.025); Urobilinogen,Urine Normal (Normal)
[2020-10-22] MEDS: Levothyroxine 25 MCG TABLET PO SCH (05:38)
[2020-10-22] MEDS: *HR* Heparin 5,000 UNIT/ML VIAL SQ SCH ×3 (05:38→21:13)
[2020-10-22] MEDS: Acetaminophen 325 MG TABLET PO PRN (05:39)
[2020-10-22 05:41] LABS: Hemoglobin 11.3 g/dL (11.5-15.4); Mean Corpuscular HGB Conc 31.4 g/dL (31.6-35.5); Mean Corpuscular Hemoglobin 30.1 pg (28.0-33.3); Mean Corpuscular Volume 95.7 fL (83.0-100.0); Mean Platelet Volume 10.1 fL (9.4-12.4); Platelet Count 229 K/mcL (140-400); Red Blood Count 3.76 M/mcL (3.82-4.97); Red Cell Distribution Width 13.3 % (11.5-14.5)
[2020-10-22 05:48] LABS: Sodium, Urine 59.9 mEq/L
[2020-10-22 06:03] LABS: Calcium 8.5 mg/dL (8.6-10.3); Potassium 4.4 mEq/L (3.5-5.1)
[2020-10-22] MEDS: Aspirin 81 MG TAB.CHEW PO SCH (09:01)
[2020-10-22] MEDS: PHENobarbital Elixir 20 MG/5 ML UDC PO SCH ×2 (09:01→21:12)
[2020-10-22] MEDS: carBAMazepine 200 MG TABLET PO SCH ×4 (09:01→21:12)
[2020-10-22] MEDS: lisinopriL 20 MG TABLET PO SCH (09:01)
[2020-10-22] MEDS: allopurinoL 100 MG TABLET PO SCH (09:01)
[2020-10-22] MEDS: Furosemide 40 MG TABLET PO SCH (09:01)
[2020-10-22] MEDS: 0.9 % Sodium Chloride 500 ML IVC SCH ×2 (15:30→15:38)
[2020-10-22] MEDS: Calcifediol [Rayaldee] 30 MCG Cap.Sa.24h PO SCH (15:43)
[2020-10-23 01:15] LABS: Hematocrit 33.1 % (35.3-44.9); Hemoglobin 10.3 g/dL (11.5-15.4); Mean Corpuscular HGB Conc 31.1 g/dL (31.6-35.5); Mean Corpuscular Hemoglobin 30.3 pg (28.0-33.3); Mean Corpuscular Volume 97.4 fL (83.0-100.0); Mean Platelet Volume 10.2 fL (9.4-12.4); Platelet Count 210 K/mcL (140-400); Red Cell Distribution Width 13.3 % (11.5-14.5); White Blood Count 7.1 K/mcL (4.3-11.1)
[2020-10-23 01:39] LABS: Calcium 8.1 mg/dL (8.6-10.3); Potassium 4.5 mEq/L (3.5-5.1)
[2020-10-23] MEDS: *HR* Heparin 5,000 UNIT/ML VIAL SQ SCH (05:28)
[2020-10-23] MEDS: Levothyroxine 25 MCG TABLET PO SCH (05:28)
[2020-10-23 07:39] VITALS: BP 148/67; PULSE 64; TEMP 97.7; O2SAT 98
[2020-10-23] MEDS: PHENobarbital Elixir 20 MG/5 ML UDC PO SCH (08:01)
[2020-10-23] MEDS: carBAMazepine 200 MG TABLET PO SCH (08:01)
[2020-10-23] MEDS: allopurinoL 100 MG TABLET PO SCH (08:01)
[2020-10-23] MEDS: Aspirin 81 MG TAB.CHEW PO SCH (08:01)
[2020-10-23] MEDS: Acetaminophen 325 MG TABLET PO PRN (08:35)
== END 2020-10-23 11:12 | DRG 947 ==
LOC: 3BNU 13:36 → EMEROOARM 13:36 → 3BNU 18:25 → SUATTDRO 10-20 14:19
PROVIDERS: ADMIT Internal Medicine; ATTEND Internal Medicine